=== PATIENT | male | born 1965 | race American Indian/Alaskan Native ===

== ENCOUNTER 2016-07-22 18:54 | Emergency (ER) | payer MEDICARE, MEDICAID, OTHER ==
[2016-07-22 19:00] VITALS: BP 161/87
[2016-07-22 20:09] LABS: CHLORIDE,CL 89 mmol/L (101-111); SODIUM,NA 130 mmol/L (135-145)
[2016-07-22] MEDS ORDERED: Magnesium Citrate Solution 296 ML Bottle PO ONE ×2 (21:23→21:24)
--- NOTE | 2016-07-22 22:53 | EDM.PDOC ---
ED HPI GENERAL MEDICAL PROBLEM - General Chief Complaint: General Stated Complaint: DONT FEEL GOOD Time Seen by Provider: 07/22/16 19:05 Source of Information: Reports: Patient, Family History Limitations: Reports: No limitations - History of Present Illness INITIAL COMMENTS - FREE TEXT/NARRATIVE: c/o being constipated and having rectal pain from being "plugged" Last normal BM on Tuesday. Severity: moderate Associated Symptoms: Denies: loss of appetite, nausea/vomiting - Related Data Allergies Allergy/AdvReac Type Severity Reaction Status Date / Time metformin Allergy Nausea and Verified 07/22/16 19:06 Vomiting Home Meds: Home Meds Aspirin [Aspirin EC] 81 mg PO DAILY 02/15/15 [History] Calcium Carbonate 600 mg PO DAILY 02/15/15 [History] Ferrous Sulfate 325 mg PO DAILY 02/15/15 [History] Furosemide 40 mg PO DAILY 02/15/15 [History] Insulin Detemir [Levemir] 25 units SQ DAILY 02/15/15 [History] Simvastatin [Zocor] 20 mg PO DAILY 02/15/15 [History] Warfarin [Coumadin] 3 mg PO DAILY 02/15/16 [History] Hydrocodone/Acetaminophen [Hydrocodon-Acetaminophen 5-325] 1 tab PO BEDTIME 06/08 [History] Insulin Aspart [NovoLOG] 14 units SQ TID 05/23/16 [History] Docusate Sodium [Colace] 200 mg PO DAILY 06/28/16 [History] Past Medical History HEENT History: Reports: Impaired vision Other HEENT History: wears glasses Cardiovascular History: Reports: Afib, High cholesterol, Hypertension Respiratory History: Reports: Bronchitis, recurrent, Sleep apnea Gastrointestinal History: Reports: Chronic constipation Genitourinary History: Reports: Dialysis, Dialysis, peritoneal, Renal disease Other Genitourinary History: hemodialysis shunt in left upper arm with palpable bruit Musculoskeletal History: Reports: Fracture Neurological History: Reports: None Psychiatric History: Reports: None Endocrine/Metabolic History: Reports: Diabetes, type II, IDDM, Obesity/BMI 30+ Hematologic History: Reports: Anticoagulation therapy Immunologic History: Reports: None Oncologic (Cancer) History: Reports: None Dermatologic History: Reports: None - Past Surgical History HEENT Surgical History: Reports: Oral surgery Other HEENT Surgeries/Procedures: multiple teeth extracted GI Surgical History: Reports: None Male Surgical History: Reports: None Neurological Surgical History: Reports: None Social & Family History - Family History Family Medical History: Noncontributory - Tobacco Use Smoking Status *Q: Never Smoker Second Hand Smoke Exposure: No - Caffeine Use Caffeine Use: Reports: Coffee, Soda - Recreational Drug Use Recreational Drug Use: No - Living Situation & Occupation Living situation: Reports: , with family ED ROS GENERAL - Review of Systems Review Of Systems: See Below Constitutional: Reports: no symptoms HEENT: Reports: No symptoms Respiratory: Reports: no symptoms Cardiovascular: Reports: No symptoms Endocrine: Reports: no symptoms GI/Abdominal: Reports: Abdominal pain, Constipation, Stool incontinence : Reports: no symptoms Skin: Reports: no symptoms Neurological: Reports: no symptoms ED EXAM, GENERAL - Physical Exam Exam: See Below Exam Limited By: No limitations General Appearance: alert, moderate distress Eye Exam: bilateral eye: EOMI Ears: normal external exam Nose: normal inspection Throat/Mouth: Normal inspection Head: atraumatic, normocephalic Neck: normal inspection Respiratory/Chest: no respiratory distress, decreased breath sounds (bilateral bases) Cardiovascular: normal peripheral pulses, regular rate, rhythm GI/Abdominal: distended, other (peritoneal dialysis catheterin place dressing CDI). No: normal bowel sounds (hypoactive, no typmany) Rectal (Males) Exam: Fecal impaction (soft), Heme - stool, Tenderness (rectal pressure). No: Hemorrhoids Extremities: normal inspection Neurological: alert, oriented Psychiatric: normal affect Skin Exam: Warm, Dry, Intact Course - Vital Signs Last Recorded V/S: Last Vital Signs Temp 99.6 F 07/22/16 18:59 Pulse 95 07/22/16 18:59 Resp 18 07/22/16 18:59 BP 161/87 H 07/22/16 18:59 Pulse Ox 100 07/22/16 18:59 - Orders/Labs/Meds Orders: Active Orders 24 hr Category Date Time Status Enema [RC] ASDIRECTED Care 07/22/16 20:44 Active Labs: Laboratory Tests 07/22/16 07/22/16 Range/Units 19:45 19:45 WBC 13.4 H (5.0-10.0) 10^3/uL RBC 3.85 L (4.6-6.2) 10^6/uL Hgb 11.6 L (14.0-18.0) g/dL Hct 35.6 L (40.0-54.0) % MCV 92.5 (80-100) fL MCH 30.1 (27.0-34.0) pg MCHC 32.6 L (33.0-35.0) g/dL Plt Count 227 (150-450) 10^3/uL Neut % (Auto) 78.0 H (42.2-75.2) % Lymph % (Auto) 11.9 L (20.5-50.1) % [place] % (Auto) 8.2 H (2-8) % Eos % (Auto) 1.6 (1.0-3.0) % Baso % (Auto) 0.3 (0.0-1.0) % Sodium 130 L (135-145) mmol/L Potassium 4.3 (3.6-5.0) mmol/L Chloride 89 L (101-111) mmol/L Carbon Dioxide 25.0 (21.0-31.0) mmol/L Anion Gap 20.3 BUN 61 H (7-18) mg/dL Creatinine 12.9 H (0.6-1.3) mg/dL Est Cr Clr Drug Dosing 7.91 mL/min Estimated GFR (MDRD) 4 BUN/Creatinine Ratio 4.72 Glucose 283 H (74-105) mg/dL Calcium 9.5 (8.4-10.2) mg/dl Magnesium 2.7 H (1.8-2.5) mg/dL Total Bilirubin 0.4 (0.2-1.0) mg/dL AST 20 (10-42) IU/L ALT < 5 L (10-60) IU/L Alkaline Phosphatase 93 (42-121) IU/L Total Protein 7.4 (6.7-8.2) g/dl Albumin 3.3 (3.2-5.5) g/dl Globulin 4.1 Albumin/Globulin Ratio 0.80 Meds: Medications Discontinued Medications Generic Name Dose Route Start Last Admin Trade Name Freq PRN Reason Stop Dose Admin Magnesium Citrate 280 ml 07/22/16 21:23 07/22/16 22:18 Citrate Of Magnesia PO 07/22/16 21:24 296 ml ONETIME ONE Administration Magnesium Citrate 250 ml 07/22/16 21:24 Citrate Of Magnesia PO 07/22/16 21:25 ONETIME ONE - Radiology Interpretation Free Text/Narrative:: CT abdomen no obstruction, moderate stool in rectal vault. - Re-Assessments/Exams Free Text/Narrative Re-Assessment/Exam: difficulty retaining enema fluid, Manual removal small amount of stool, Soft BM with decrease in rectal pain and pressure. Departure - Departure Time of Disposition: 22:51 Disposition: Home, Self-Care 01 Condition: good Clinical Impression: Fecal impaction in rectum Constipation Qualifiers: Constipation type: slow transit constipation Qualified Code(s): K59.01 - Slow transit constipation Instructions: Constipation, Adult Forms: ED Department Discharge Additional Instructions: clinic follow up tomorrow. continue bowel program - My Orders Last 24 Hours: My Active Orders 07/22/16 20:44 Enema [RC] ASDIRECTED - Assessment/Plan Last 24 Hours: My Active Orders 07/22/16 20:44 Enema [RC] ASDIRECTED
== END 2016-07-22 23:29 | disposition home or self-care (01) ==
LOC: DL.ED 18:54
DX: K56.41 Fecal impaction (principal); K59.01 Slow transit constipation; I48.91 Unspecified atrial fibrillation; E78.00 Pure hypercholesterolemia, unspecified; I10 Essential (primary) hypertension; E11.9 Type 2 diabetes mellitus without complications; E66.9 Obesity, unspecified; Z98.890 Other specified postprocedural states; Z79.4 Long term (current) use of insulin; Z79.899 Other long term (current) drug therapy; Z79.82 Long term (current) use of aspirin; Z88.8 Allergy status to other drugs, medicaments and biological substances; Z79.01 Long term (current) use of anticoagulants
CPT/HCPCS: 36415; 74176; 80053; 82272; 83735; 85025; 99284; A9270; 99282

== ENCOUNTER 2017-02-03 18:00 | Emergency (ER) | payer MEDICARE, MEDICAID ==
[2017-02-03 19:41] VITALS: BP 114/72
--- NOTE | 2017-02-03 21:41 | EDM.PDOC ---
ED HPI GENERAL MEDICAL PROBLEM - General Chief Complaint: ENT Problem Stated Complaint: CONGESTED IN CHEST, HARD TO BREATH, [id number] Time Seen by Provider: 02/03/17 20:05 Source of Information: Reports: Patient History Limitations: Reports: No Limitations - History of Present Illness INITIAL COMMENTS - FREE TEXT/NARRATIVE: C/O product cough clear phlegm today, hx similar in past No fever. States he told dialysis staff today and was told to try corriscidin and if not better to go to ED. Main dialysis in [place], [place]. Has not tried OTC and here for eval Generalized Pain Score (Numeric/FACES): 6 - Related Data Allergies Allergy/AdvReac Type Severity Reaction Status Date / Time metformin Allergy Nausea and Verified 02/03/17 19:41 Vomiting Home Meds: Home Meds Aspirin [Aspirin EC] 81 mg PO DAILY 02/15/15 [History] Calcium Carbonate 600 mg PO DAILY 02/15/15 [History] Furosemide 40 mg PO DAILY 02/15/15 [History] Insulin Detemir [Levemir] 25 units SQ DAILY 02/15/15 [History] Simvastatin [Zocor] 20 mg PO DAILY 02/15/15 [History] Warfarin [Coumadin] 3 mg PO DAILY 02/15/16 [History] Hydrocodone/Acetaminophen [Hydrocodon-Acetaminophen 5-325] 1 tab PO BEDTIME 06/08 [History] Insulin Aspart [NovoLOG] 14 units SQ TID 05/23/16 [History] Docusate Sodium [Colace] 200 mg PO DAILY 06/28/16 [History] Past Medical History HEENT History: Reports: Impaired Vision Other HEENT History: wears glasses Cardiovascular History: Reports: Afib, High Cholesterol, Hypertension Respiratory History: Reports: Bronchitis, Recurrent, Sleep Apnea Gastrointestinal History: Reports: Chronic Constipation Genitourinary History: Reports: Dialysis, Renal Disease Other Genitourinary History: hemodialysis shunt in left upper arm with palpable bruit Musculoskeletal History: Reports: Fracture Neurological History: Reports: None Psychiatric History: Reports: None Endocrine/Metabolic History: Reports: Diabetes, Type II, IDDM, Obesity/BMI 30+ Hematologic History: Reports: Anticoagulation Therapy Immunologic History: Reports: None Oncologic (Cancer) History: Reports: None Dermatologic History: Reports: None - Past Surgical History HEENT Surgical History: Reports: Oral Surgery Neurological Surgical History: Reports: None Social & Family History - Family History Family Medical History: Noncontributory - Tobacco Use Smoking Status *Q: Never Smoker Second Hand Smoke Exposure: No - Caffeine Use Caffeine Use: Reports: Coffee, Soda - Recreational Drug Use Recreational Drug Use: No - Living Situation & Occupation Living situation: Reports: , with Family ED ROS ENT - Review of Systems Review Of Systems: ROS reveals no pertinent complaints other than HPI. ED EXAM, ENT - Physical Exam Exam: See Below Exam Limited By: No Limitations General Appearance: Alert, Mild Distress (nasal congestion) Ears: Normal TMs Nose: Normal Inspection Mouth/Throat: Normal Inspection Head: Atraumatic, Normocephalic Neck: Normal Inspection, Full Range of Motion Respiratory/Chest: No Respiratory Distress, Decreased Breath Sounds. No: Crackles, Rales, Rhonchi, Wheezing Cardiovascular: Normal Peripheral Pulses, Regular Rate, Rhythm GI/Abdominal: Soft Extremities: Normal Inspection. No: Pedal Edema Neurological: Alert, Oriented Skin: Warm, Dry, Intact, Normal Color Course - Vital Signs Last Recorded V/S: Last Vital Signs Temp 97.7 F 02/03/17 19:38 Pulse 84 02/03/17 19:38 Resp 18 02/03/17 19:38 BP 114/72 02/03/17 19:38 Pulse Ox 98 02/03/17 19:38 - Orders/Labs/Meds Orders: Active Orders 24 hr Category Date Time Status CULTURE BLOOD [BC] Stat Lab 02/03/17 20:18 Received CULTURE BLOOD [BC] Stat Lab 02/03/17 20:25 Results Blood Culture x2 Reflex Set [OM.PC] Stat Oth 02/03/17 20:04 Ordered Labs: Laboratory Tests 02/03/17 02/03/17 02/03/17 Range/Units 20:18 20:18 20:18 WBC 6.6 (5.0-10.0) 10^3/uL RBC 4.19 L (4.6-6.2) 10^6/uL Hgb 11.9 L (14.0-18.0) g/dL Hct 37.8 L (40.0-54.0) % MCV 90.2 (80-100) fL MCH 28.4 (27.0-34.0) pg MCHC 31.5 L (33.0-35.0) g/dL Plt Count 192 (150-450) 10^3/uL Neut % (Auto) 60.6 (42.2-75.2) % Lymph % (Auto) 20.5 (20.5-50.1) % [place] % (Auto) 9.0 H (2-8) % Eos % (Auto) 9.3 H (1.0-3.0) % Baso % (Auto) 0.6 (0.0-1.0) % Sodium 138 (135-145) mmol/L Potassium 3.6 (3.6-5.0) mmol/L Chloride 92 L (101-111) mmol/L Carbon Dioxide 33.0 H (21.0-31.0) mmol/L Anion Gap 16.6 BUN 11 (7-18) mg/dL Creatinine 6.4 H (0.6-1.3) mg/dL Est Cr Clr Drug Dosing 15.78 mL/min Estimated GFR (MDRD) 9 BUN/Creatinine Ratio 1.71 Glucose 142 H (74-105) mg/dL Lactic Acid 1.7 (0.5-2.2) mmol/L Calcium 9.2 (8.4-10.2) mg/dl Total Bilirubin 0.5 (0.2-1.0) mg/dL AST 25 (10-42) IU/L ALT 21 (10-60) IU/L Alkaline Phosphatase 80 (42-121) IU/L Troponin I 0.03 H* (0.00-0.02) ng/ml B-Natriuretic Peptide 401 H (0-100) pg/ml Total Protein 8.4 H (6.7-8.2) g/dl Albumin 4.1 (3.2-5.5) g/dl Globulin 4.3 Albumin/Globulin Ratio 0.95 Departure - Departure Time of Disposition: 21:38 Disposition: Home, Self-Care 01 Condition: Good Clinical Impression: URI (upper respiratory infection) Qualifiers: URI type: unspecified URI Qualified Code(s): J06.9 - Acute upper respiratory infection, unspecified - Discharge Information Instructions: Upper Respiratory Infection, Adult Referrals: Arnoldo Sanders MD [Primary Care Provider] - Forms: ED Department Discharge Additional Instructions: rest corricidin HBP per package instructions follow up if symptoms worsen, increase difficulty breathing, or weakness - My Orders Last 24 Hours: My Active Orders 02/03/17 20:04 Blood Culture x2 Reflex Set [OM.PC] Stat 02/03/17 20:18 CULTURE BLOOD [BC] Stat 02/03/17 20:25 CULTURE BLOOD [BC] Stat - Assessment/Plan Last 24 Hours: My Active Orders 02/03/17 20:04 Blood Culture x2 Reflex Set [OM.PC] Stat 02/03/17 20:18 CULTURE BLOOD [BC] Stat 02/03/17 20:25 CULTURE BLOOD [BC] Stat
== END 2017-02-03 21:49 | disposition home or self-care (01) ==
LOC: DL.ED 18:00
DX: J06.9 Acute upper respiratory infection, unspecified (principal); H54.7 Unspecified visual loss; E78.00 Pure hypercholesterolemia, unspecified; E11.9 Type 2 diabetes mellitus without complications; E66.9 Obesity, unspecified; I10 Essential (primary) hypertension; Z98.890 Other specified postprocedural states; Z88.8 Allergy status to other drugs, medicaments and biological substances; Z79.82 Long term (current) use of aspirin; Z79.899 Other long term (current) drug therapy; Z79.4 Long term (current) use of insulin; Z79.01 Long term (current) use of anticoagulants
CPT/HCPCS: 36415; 71020; 80053; 83605; 83880; 84484; 85025; 87040; 99283

== ENCOUNTER 2017-07-23 21:38 | Emergency (ER) | payer MEDICARE, MEDICAID, OTHER ==
[2017-07-23 22:18] VITALS: BP 167/72
--- NOTE | 2017-07-23 22:35 | EDM.PDOC ---
ED HPI GENERAL MEDICAL PROBLEM - General Chief Complaint: Upper Extremity Injury/Pain Stated Complaint: RT ARM,FELL ON SIDEWALK [id number] Time Seen by Provider: 07/23/17 21:50 Source of Information: Reports: Patient History Limitations: Reports: No Limitations - History of Present Illness INITIAL COMMENTS - FREE TEXT/NARRATIVE: This 51 yo male patient reports to the ED due to a fall. The patient reports about 1 hour ago he fell while in [place]. The patient reports he fell on his left knee and then to his right arm. The patient reports that he did not want to go to the ED while in [place], so came here. The patient also reports that he fell earlier today and sprained his left wrist. The patient also reports that he now has pain in his chest. Onset: Today Onset Date: 07/23/17 Onset Time: 21:00 Duration: Constant Location: Reports: Chest, Upper Extremity, Right, Lower Extremity, Left Quality: Reports: Ache, Dull Severity: Moderate Improves with: Reports: Rest Worsens with: Reports: Movement Associated Symptoms: Reports: Chest Pain Right Arm Pain Score (Numeric/FACES): 5 - Related Data Allergies Allergy/AdvReac Type Severity Reaction Status Date / Time metformin Allergy Nausea and Verified 07/23/17 22:19 Vomiting Home Meds: Home Meds Aspirin [Aspirin EC] 81 mg PO DAILY 02/15/15 [History] Calcium Carbonate 600 mg PO DAILY 02/15/15 [History] Furosemide 40 mg PO DAILY 02/15/15 [History] Insulin Detemir [Levemir] 25 units SQ DAILY 02/15/15 [History] Simvastatin [Zocor] 20 mg PO DAILY 02/15/15 [History] Warfarin [Coumadin] 3 mg PO DAILY 02/15/16 [History] Hydrocodone/Acetaminophen [Hydrocodon-Acetaminophen 5-325] 1 tab PO BEDTIME 06/08 [History] Insulin Aspart [NovoLOG] 14 units SQ TID 05/23/16 [History] Docusate Sodium [Colace] 200 mg PO DAILY 06/28/16 [History] Past Medical History HEENT History: Reports: Impaired Vision Other HEENT History: wears glasses Cardiovascular History: Reports: Afib, High Cholesterol, Hypertension Respiratory History: Reports: Bronchitis, Recurrent, Sleep Apnea Gastrointestinal History: Reports: Chronic Constipation Genitourinary History: Reports: Dialysis, Renal Disease Other Genitourinary History: hemodialysis shunt in left upper arm with palpable bruit Musculoskeletal History: Reports: Fracture Neurological History: Reports: None Psychiatric History: Reports: None Endocrine/Metabolic History: Reports: Diabetes, Type II, IDDM, Obesity/BMI 30+ Hematologic History: Reports: Anticoagulation Therapy Immunologic History: Reports: None Oncologic (Cancer) History: Reports: None Dermatologic History: Reports: None - Past Surgical History HEENT Surgical History: Reports: Oral Surgery Neurological Surgical History: Reports: None Social & Family History - Family History Family Medical History: Noncontributory - Tobacco Use Smoking Status *Q: Never Smoker Second Hand Smoke Exposure: No - Caffeine Use Caffeine Use: Reports: Coffee - Recreational Drug Use Recreational Drug Use: No - Living Situation & Occupation Living situation: Reports: , with Family Review of Systems - Review of Systems Review Of Systems: ROS reveals no pertinent complaints other than HPI. ED EXAM, GENERAL - Physical Exam Exam: See Below Exam Limited By: No Limitations General Appearance: Alert, WD/WN, Moderate Distress, Obese Eye Exam: Bilateral Eye: EOMI, Normal Fundi, PERRL Ears: Normal External Exam, Normal Canal, Hearing Grossly Normal, Normal TMs Nose: Normal Inspection, Normal Mucosa, No Blood Throat/Mouth: Normal Inspection, Normal Lips, Normal Teeth, Normal Gums, Normal Oropharynx, Normal Voice, No Airway Compromise Head: Atraumatic, Normocephalic Neck: Normal Inspection, Supple, Non-Tender, Full Range of Motion Respiratory/Chest: No Respiratory Distress, Lungs Clear, Normal Breath Sounds, No Accessory Muscle Use, Other (Tenderness to the right middle chest) Cardiovascular: Normal Peripheral Pulses, Regular Rate, Rhythm, No Edema, No Gallop, No JVD, No Murmur, No Rub GI/Abdominal: Normal Bowel Sounds, Soft, Non-Tender, No Organomegaly, No Distention, No Abnormal Bruit, No Mass (Male) Exam: Deferred Rectal (Males) Exam: Deferred Back Exam: Normal Inspection, Full Range of Motion, NT Extremities: No Pedal Edema, Normal Capillary Refill, Arm Pain (right elbow) Neurological: Alert, Oriented, CN II-XII Intact, Normal Cognition, Normal Gait, Normal Reflexes, No Motor/Sensory Deficits Psychiatric: Normal Affect, Normal Mood Skin Exam: Warm, Dry, Intact, Normal Color, No Rash Lymphatic: No Adenopathy ED TRAUMA EXTREMITY PROCEDURES - Splinting Right Upper Extremity Splint Site: right elbow Pre-Procedure NV Status: Normal Post-Procedure NV Status: Normal Splint Material: Fiberglass Splint Design: Volar Provider Post-Splint Application NV Check: NV Status Normal, Good Position Complications: No Course - Vital Signs Last Recorded V/S: Last Vital Signs Temp 36.9 C 07/23/17 21:48 Pulse 86 07/23/17 21:48 Resp 18 07/23/17 21:48 BP 167/72 H 07/23/17 21:48 Pulse Ox 99 07/23/17 21:48 - Orders/Labs/Meds Orders: Active Orders 24 hr Category Date Time Status EKG Documentation Completion [RC] URGENT Care 07/23/17 21:52 Ordered Chest 1V Frontal [CR] Urgent Exams 07/23/17 21:52 Ordered Forearm 2V Rt [CR] Urgent Exams 07/23/17 21:52 Ordered Knee 1V or 2V Lt [CR] Urgent Exams 07/23/17 21:52 Ordered Wrist 2V Rt [CR] Urgent Exams 07/23/17 21:52 Ordered COMPREHENSIVE METABOLIC PN,CMP [CHEM] Urgent Lab 07/23/17 21:52 Ordered TROPONIN I [CHEM] Urgent Lab 07/23/17 21:52 Ordered Labs: Laboratory Tests 07/23/17 Range/Units 22:00 WBC 7.5 (5.0-10.0) 10^3/uL RBC 3.06 L (4.6-6.2) 10^6/uL Hgb 8.9 L D (14.0-18.0) g/dL Hct 28.3 L (40.0-54.0) % MCV 92.5 (80-100) fL MCH 29.1 (27.0-34.0) pg MCHC 31.4 L (33.0-35.0) g/dL Plt Count 199 (150-450) 10^3/uL Neut % (Auto) 60.9 (42.2-75.2) % Lymph % (Auto) 24.5 (20.5-50.1) % [place] % (Auto) 9.8 H (2-8) % Eos % (Auto) 4.0 H (1.0-3.0) % Baso % (Auto) 0.8 (0.0-1.0) % Departure - Departure Time of Disposition: 00:03 Disposition: Home, Self-Care 01 Condition: Fair Clinical Impression: Fracture of radial head, right, closed Qualifiers: Encounter type: initial encounter Fracture alignment: nondisplaced Qualified Code(s): S52.124A - Nondisplaced fracture of head of right radius, initial encounter for closed fracture - Discharge Information Instructions: Radial Head Fracture, [id number] Care Plan Goals: The patient was advised of the examination, lab, x-ray and EKG results during the visit. The patient was placed in a fiberglass splint for his right elbow and a sling during the visit in the ED. The patient was encouraged to follow-up with orthopedics next week for continued evaluation and further management. The patient was given a dose of [place] while in the ED. If the patient has any additional symptoms or concerns, the patient should follow-up with his primary care facility or return to the emergency department. - My Orders Last 24 Hours: My Active Orders 07/23/17 21:52 EKG Documentation Completion [RC] URGENT Chest 1V Frontal [CR] Urgent Forearm 2V Rt [CR] Urgent Knee 1V or 2V Lt [CR] Urgent Wrist 2V Rt [CR] Urgent COMPREHENSIVE METABOLIC PN,CMP [CHEM] Urgent TROPONIN I [CHEM] Urgent - Assessment/Plan Last 24 Hours: My Active Orders 07/23/17 21:52 EKG Documentation Completion [RC] URGENT Chest 1V Frontal [CR] Urgent Forearm 2V Rt [CR] Urgent Knee 1V or 2V Lt [CR] Urgent Wrist 2V Rt [CR] Urgent COMPREHENSIVE METABOLIC PN,CMP [CHEM] Urgent TROPONIN I [CHEM] Urgent
[2017-07-23] MEDS ORDERED: Acetaminophen/HYDROcodone 325-10 MG Tab PO ONE (23:25)
--- NOTE | 2017-07-26 12:48 | EKG ---
07/23/2017- RUMA VASQUEZ - EKG shows a heart rate of 78 beats per minute. Normal sinus rhythm. A right bundle-branch block, and borderline left axis deviation. [facility] /[id number]
== END 2017-07-24 00:15 | disposition home or self-care (01) ==
LOC: DL.ED 21:38
DX: S52.124A Nondisplaced fracture of head of right radius, initial encounter for closed fracture (principal); I10 Essential (primary) hypertension; E78.00 Pure hypercholesterolemia, unspecified; E11.9 Type 2 diabetes mellitus without complications; E66.9 Obesity, unspecified; Z88.8 Allergy status to other drugs, medicaments and biological substances; Z79.82 Long term (current) use of aspirin; Z79.899 Other long term (current) drug therapy; Z79.4 Long term (current) use of insulin; W19.XXXA Unspecified fall, initial encounter
CPT/HCPCS: 29105; 36415; 71045; 73090; 73100; 73560; 80053; 84484; 85025; 93005; 93010; 99283; 99284; A9270

== ENCOUNTER 2017-07-31 17:30 | Emergency (ER) | payer MEDICARE, MEDICAID, OTHER ==
[2017-07-31] MEDS ORDERED: Benzonatate 100 MG Cap PO ONE (17:31)
--- NOTE | 2017-07-31 19:31 | EDM.PDOC ---
ED HPI GENERAL MEDICAL PROBLEM - General Chief Complaint: Respiratory Problem Stated Complaint: cold [id number] Time Seen by Provider: 07/31/17 19:28 Source of Information: Reports: Patient History Limitations: Reports: No Limitations - History of Present Illness INITIAL COMMENTS - FREE TEXT/NARRATIVE: ED with c/o cough and sore throat. 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 Chest Pain Score (Numeric/FACES): 7 - Related Data Allergies Allergy/AdvReac Type Severity Reaction Status Date / Time metformin Allergy Nausea and Verified 07/23/17 22:19 Vomiting Home Meds: Home Meds Aspirin [Aspirin EC] 81 mg PO DAILY 02/15/15 [History] Calcium Carbonate 600 mg PO DAILY 02/15/15 [History] Furosemide 40 mg PO DAILY 02/15/15 [History] Insulin Detemir [Levemir] 25 units SQ DAILY 02/15/15 [History] Simvastatin [Zocor] 20 mg PO DAILY 02/15/15 [History] Warfarin [Coumadin] 3 mg PO DAILY 02/15/16 [History] Hydrocodone/Acetaminophen [Hydrocodon-Acetaminophen 5-325] 1 tab PO BEDTIME 06/08 [History] Insulin Aspart [NovoLOG] 14 units SQ TID 05/23/16 [History] Docusate Sodium [Colace] 200 mg PO DAILY 06/28/16 [History] Past Medical History HEENT History: Reports: Impaired Vision Other HEENT History: wears glasses Cardiovascular History: Reports: Afib, High Cholesterol, Hypertension Respiratory History: Reports: Bronchitis, Recurrent, Sleep Apnea Gastrointestinal History: Reports: Chronic Constipation Genitourinary History: Reports: Dialysis, Renal Disease Other Genitourinary History: hemodialysis shunt in left upper arm with palpable bruit Musculoskeletal History: Reports: Fracture Neurological History: Reports: None Psychiatric History: Reports: None Endocrine/Metabolic History: Reports: Diabetes, Type II, IDDM, Obesity/BMI 30+ Hematologic History: Reports: Anticoagulation Therapy Immunologic History: Reports: None Oncologic (Cancer) History: Reports: None Dermatologic History: Reports: None - Past Surgical History HEENT Surgical History: Reports: Oral Surgery Neurological Surgical History: Reports: None Social & Family History - Family History Family Medical History: Noncontributory - Tobacco Use Smoking Status *Q: Never Smoker Second Hand Smoke Exposure: No - Caffeine Use Caffeine Use: Reports: Coffee, Soda, Tea - Recreational Drug Use Recreational Drug Use: No - Living Situation & Occupation Living situation: Reports: , with Family ED ROS GENERAL - Review of Systems Review Of Systems: See Below Constitutional: Reports: Night Sweats HEENT: Reports: Glasses, Sinus Problem, Throat Pain. Denies: Ear Pain Respiratory: Reports: Cough, Hemoptysis. Denies: Shortness of Breath, Wheezing Endocrine: Reports: No Symptoms GI/Abdominal: Reports: No Symptoms Musculoskeletal: Reports: Arm Pain (rught arm from recent injury) Skin: Reports: No Symptoms Neurological: Reports: No Symptoms ED EXAM, GENERAL - Physical Exam Exam: See Below Exam Limited By: No Limitations General Appearance: Alert, No Apparent Distress Eye Exam: Bilateral Eye: EOMI Ears: Normal External Exam, Normal TMs Nose: Normal Inspection. No: Nasal Drainage Throat/Mouth: Inflammation (minimal grater left ) Head: Atraumatic, Normocephalic Neck: Normal Inspection Respiratory/Chest: No Respiratory Distress, Lungs Clear, Normal Breath Sounds Cardiovascular: Normal Peripheral Pulses, Regular Rate, Rhythm Back Exam: Full Range of Motion Extremities: Normal Inspection, Normal Range of Motion Neurological: Alert, Oriented, Normal Cognition, Normal Reflexes, No Motor/ Sensory Deficits. No: Disoriented, Slow to Respond, Unresponsive, Memory Loss Remote Events Psychiatric: Normal Affect, Normal Mood Skin Exam: Warm, Dry, Intact, Normal Color Course - Vital Signs Last Recorded V/S: Last Vital Signs Temp 100.4 F 07/31/17 21:32 Pulse 100 07/31/17 21:34 Resp 18 07/31/17 21:32 BP 113/74 07/31/17 21:32 Pulse Ox 98 07/31/17 21:32 - Orders/Labs/Meds Orders: Active Orders 24 hr Category Date Time Status RT Aerosol Therapy [RC] ASDIRECTED Care 07/31/17 21:25 Active CULTURE STREP A CONFIRMATION [] Stat Lab 07/31/17 20:20 Results STREP SCRN A RAPID W CULT CONF [] Stat Lab 07/31/17 20:20 Results Labs: Laboratory Tests 07/31/17 07/31/17 07/31/17 Range/Units 19:42 19:42 19:42 WBC 6.1 (5.0-10.0) 10^3/uL RBC 2.98 L (4.6-6.2) 10^6/uL Hgb 8.4 L (14.0-18.0) g/dL Hct 27.2 L (40.0-54.0) % MCV 91.3 (80-100) fL MCH 28.2 (27.0-34.0) pg MCHC 30.9 L (33.0-35.0) g/dL Plt Count 209 (150-450) 10^3/uL Neut % (Auto) 56.6 (42.2-75.2) % Lymph % (Auto) 26.0 (20.5-50.1) % [place] % (Auto) 10.5 H (2-8) % Eos % (Auto) 6.2 H (1.0-3.0) % Baso % (Auto) 0.7 (0.0-1.0) % Sodium 137 (135-145) mmol/L Potassium 4.2 (3.6-5.0) mmol/L Chloride 94 L (101-111) mmol/L Carbon Dioxide 33.0 H (21.0-31.0) mmol/L Anion Gap 14.2 BUN 18 (7-18) mg/dL Creatinine 7.3 H D (0.6-1.3) mg/dL Est Cr Clr Drug Dosing 14.23 mL/min Estimated GFR (MDRD) 8 BUN/Creatinine Ratio 2.46 Glucose 104 (74-105) mg/dL Lactic Acid 1.1 (0.5-2.2) mmol/L Calcium 9.6 (8.4-10.2) mg/dl Total Bilirubin 0.8 (0.2-1.0) mg/dL AST 18 (10-42) IU/L ALT 13 (10-60) IU/L Alkaline Phosphatase 66 (42-121) IU/L Total Protein 7.7 (6.7-8.2) g/dl Albumin 3.9 (3.2-5.5) g/dl Globulin 3.8 Albumin/Globulin Ratio 1.03 Meds: Medications Discontinued Medications Generic Name Dose Route Start Last Admin Trade Name Freq PRN Reason Stop Dose Admin Acetaminophen 650 mg 07/31/17 21:37 07/31/17 21:40 Tylenol PO 07/31/17 21:38 650 mg NOW ONE Administration Albuterol/Ipratropium 3 ml 07/31/17 21:25 07/31/17 21:29 Duoneb 3.0-0.5 Mg/3 Ml NEB 07/31/17 21:26 3 ml ONETIME ONE Administration Benzonatate Confirm 07/31/17 21:36 07/31/17 21:43 Tessalon Perles Administered 07/31/17 21:37 Not Given Dose 200 mg .ROUTE .STK-MED ONE Levofloxacin Confirm 07/31/17 21:37 07/31/17 21:42 Levaquin Administered 07/31/17 21:38 500 mg Dose Administration 500 mg .ROUTE .STK-MED ONE - Radiology Interpretation Free Text/Narrative:: CXR: right pleural effusion with basilar airspace disease representing pneumonia / atelectasis unchanged since previous exam 07/23/2017 base atelectasis/ Departure - Departure Time of Disposition: 21:35 Disposition: Home, Self-Care 01 Condition: Fair Clinical Impression: URI (upper respiratory infection) Qualifiers: URI type: unspecified URI Qualified Code(s): J06.9 - Acute upper respiratory infection, unspecified - Discharge Information Instructions: Upper Respiratory Infection, Adult, [id number] Forms: ED Department Discharge Additional Instructions: Humidification tylenol 650mg every 4 hours as needed for fever levaquin 250mg every other day tessalon 100mg one every 8 hours as needed for cough clinic follow up 2-3 days, sooner if symptoms worsen - My Orders Last 24 Hours: My Active Orders 07/31/17 20:20 CULTURE STREP A CONFIRMATION [RM] Stat STREP SCRN A RAPID W CULT CONF [RM] Stat 07/31/17 21:25 RT Aerosol Therapy [RC] ASDIRECTED - Assessment/Plan Last 24 Hours: My Active Orders 07/31/17 20:20 CULTURE STREP A CONFIRMATION [RM] Stat STREP SCRN A RAPID W CULT CONF [RM] Stat 07/31/17 21:25 RT Aerosol Therapy [RC] ASDIRECTED
[2017-07-31] MEDS ORDERED: Albuterol/Ipratropium 3.0-0.5 MG/3 ML Neb Soln NEB ONE (21:25)
[2017-07-31 21:33] VITALS: BP 113/74
[2017-07-31] MEDS ORDERED: Benzonatate 100 MG Cap ONE (21:36)
[2017-07-31] MEDS ORDERED: Levofloxacin 500 MG Tab ONE (21:37)
[2017-07-31] MEDS ORDERED: Acetaminophen 325 MG Tab PO ONE (21:37)
== END 2017-07-31 21:50 | disposition home or self-care (01) ==
LOC: DL.ED 17:30
DX: J06.9 Acute upper respiratory infection, unspecified (principal); I48.91 Unspecified atrial fibrillation; E78.00 Pure hypercholesterolemia, unspecified; E11.9 Type 2 diabetes mellitus without complications; E66.9 Obesity, unspecified; Z88.8 Allergy status to other drugs, medicaments and biological substances; Z79.4 Long term (current) use of insulin; Z68.32 Body mass index [BMI] 32.0-32.9, adult
CPT/HCPCS: 36415; 71046; 80053; 83605; 85025; 87081; 87430; 87804; 94640; 99284; A9270; 99283

== ENCOUNTER 2017-10-08 19:39 | Emergency (ER) | payer MEDICARE, MEDICAID, OTHER ==
--- NOTE | 2017-10-08 22:44 | EDM.PDOC ---
ED HPI GENERAL MEDICAL PROBLEM - General Chief Complaint: General Stated Complaint: DIALIZES PATIENT [id number] Time Seen by Provider: 10/08/17 22:42 Source of Information: Reports: Patient History Limitations: Reports: No Limitations - History of Present Illness INITIAL COMMENTS - FREE TEXT/NARRATIVE: states was told to come for blood transfusion. get dialysis [facility] Tue. had dialysis today and was told needs transfusion. had phone off and didn't get the call on . Back Pain Score (Numeric/FACES): 7 - Related Data Allergies Allergy/AdvReac Type Severity Reaction Status Date / Time metformin Allergy Nausea and Verified 10/08/17 20:23 Vomiting Home Meds: Home Meds Aspirin [Aspirin EC] 81 mg PO DAILY 02/15/15 [History] Calcium Carbonate 600 mg PO DAILY 02/15/15 [History] Furosemide 40 mg PO DAILY 02/15/15 [History] Insulin Detemir [Levemir] 25 units SQ DAILY 02/15/15 [History] Simvastatin [Zocor] 20 mg PO DAILY 02/15/15 [History] Warfarin [Coumadin] 3 mg PO DAILY 02/15/16 [History] Hydrocodone/Acetaminophen [Hydrocodon-Acetaminophen 5-325] 1 tab PO BEDTIME 06/08 [History] Insulin Aspart [NovoLOG] 14 units SQ TID 05/23/16 [History] Docusate Sodium [Colace] 200 mg PO DAILY 06/28/16 [History] Past Medical History HEENT History: Reports: Impaired Vision Other HEENT History: wears glasses Cardiovascular History: Reports: Afib, High Cholesterol, Hypertension Respiratory History: Reports: Bronchitis, Recurrent, Sleep Apnea Gastrointestinal History: Reports: Chronic Constipation Genitourinary History: Reports: Dialysis, Renal Disease Other Genitourinary History: hemodialysis shunt in left upper arm with palpable bruit Musculoskeletal History: Reports: Fracture Neurological History: Reports: None Psychiatric History: Reports: None Endocrine/Metabolic History: Reports: Diabetes, Type II, IDDM, Obesity/BMI 30+ Hematologic History: Reports: Anticoagulation Therapy Immunologic History: Reports: None Oncologic (Cancer) History: Reports: None Dermatologic History: Reports: None - Past Surgical History HEENT Surgical History: Reports: Oral Surgery Neurological Surgical History: Reports: None Social & Family History - Family History Family Medical History: Noncontributory - Tobacco Use Smoking Status *Q: Never Smoker Second Hand Smoke Exposure: No - Caffeine Use Caffeine Use: Reports: Coffee, Soda, Tea - Recreational Drug Use Recreational Drug Use: No - Living Situation & Occupation Living situation: Reports: , with Family ED ROS GENERAL - Review of Systems Review Of Systems: ROS reveals no pertinent complaints other than HPI. ED EXAM, GENERAL - Physical Exam Exam: See Below Exam Limited By: No Limitations General Appearance: Alert, WD/WN, No Apparent Distress Ears: Hearing Grossly Normal Throat/Mouth: Normal Voice, No Airway Compromise Head: Atraumatic Neck: Non-Tender, Full Range of Motion Respiratory/Chest: No Respiratory Distress Cardiovascular: Regular Rate, Rhythm GI/Abdominal: Soft, Non-Tender Neurological: Alert, Oriented, Normal Cognition, No Motor/Sensory Deficits Psychiatric: Flat Affect Skin Exam: Warm, Dry, Normal Color Lymphatic: No Adenopathy Course - Vital Signs Last Recorded V/S: Last Vital Signs Temp 37.4 C 10/09/17 05:04 Pulse 95 10/09/17 05:04 Resp 20 10/09/17 05:04 BP 153/76 H 10/09/17 05:04 Pulse Ox 99 10/09/17 05:04 - Orders/Labs/Meds Orders: Active Orders 24 hr Category Date Time Status Transfuse RBC [Transfuse Red Blood Cells] [COMM] Stat Oth 10/08/17 23:00 Ordered Labs: Laboratory Tests 10/08/17 10/08/17 10/08/17 Range/Units 22:20 22:20 23:05 WBC 7.5 (5.0-10.0) 10^3/uL RBC 2.59 L (4.6-6.2) 10^6/uL Hgb 6.4 L* D (14.0-18.0) g/dL Hct 22.8 L (40.0-54.0) % MCV 88.0 D (80-100) fL MCH 24.7 L (27.0-34.0) pg MCHC 28.1 L (33.0-35.0) g/dL Plt Count 432 D (150-450) 10^3/uL Neut % (Auto) 65.7 (42.2-75.2) % Lymph % (Auto) 19.4 L (20.5-50.1) % [place] % (Auto) 11.3 H (2-8) % Eos % (Auto) 2.8 (1.0-3.0) % Baso % (Auto) 0.8 (0.0-1.0) % Sodium 137 (135-145) mmol/L Potassium 3.2 L (3.6-5.0) mmol/L Chloride 93 L (101-111) mmol/L Carbon Dioxide 34.0 H (21.0-31.0) mmol/L Anion Gap 13.2 BUN 13 (7-18) mg/dL Creatinine 5.0 H D (0.6-1.3) mg/dL Est Cr Clr Drug Dosing 20.78 mL/min Estimated GFR (MDRD) 12 BUN/Creatinine Ratio 2.60 Glucose 203 H (74-105) mg/dL Calcium 8.7 (8.4-10.2) mg/dl Total Bilirubin 0.3 (0.2-1.0) mg/dL AST 29 (10-42) IU/L ALT 12 (10-60) IU/L Alkaline Phosphatase 64 (42-121) IU/L Total Protein 6.6 L (6.7-8.2) g/dl Albumin 2.6 L (3.2-5.5) g/dl Globulin 4.0 Albumin/Globulin Ratio 0.65 Blood Type O POSITIVE Gel Antibody Screen Negative Crossmatch See Detail - Re-Assessments/Exams Free Text/Narrative Re-Assessment/Exam: 10/09/17 05:16 s/p 2 units rbc feeling much better wants to go home Departure - Departure Time of Disposition: 05:16 Disposition: Home, Self-Care 01 Condition: Fair Clinical Impression: Low hemoglobin, Acute renal failure on dialysis - Discharge Information Forms: ED Department Discharge Additional Instructions: 1) rest 2) follow up in clinic 3) recheck as needed - My Orders Last 24 Hours: My Active Orders 10/08/17 23:00 Transfuse RBC [Transfuse Red Blood Cells] [COMM] Stat - Assessment/Plan Last 24 Hours: My Active Orders 10/08/17 23:00 Transfuse RBC [Transfuse Red Blood Cells] [COMM] Stat
[2017-10-09 05:06] VITALS: BP 153/76
== END 2017-10-09 05:27 | disposition home or self-care (01) ==
LOC: DL.ED 19:39
DX: N17.9 Acute kidney failure, unspecified (principal); D64.9 Anemia, unspecified; I48.91 Unspecified atrial fibrillation; E78.00 Pure hypercholesterolemia, unspecified; I10 Essential (primary) hypertension; Z99.2 Dependence on renal dialysis; Z88.8 Allergy status to other drugs, medicaments and biological substances; Z79.82 Long term (current) use of aspirin; Z79.899 Other long term (current) drug therapy; Z79.4 Long term (current) use of insulin; Z79.01 Long term (current) use of anticoagulants
CPT/HCPCS: 36415; 36430; 80053; 85025; 86850; 86900; 86901; 86920; 86922; 99283; 99284; P9016

== ENCOUNTER 2017-10-28 17:33 | Emergency (ER) | payer MEDICARE ==
--- NOTE | 2017-10-28 17:33 | EDM.PDOC ---
<Steve Claros - Last Filed: 10/28/17 19:06> ED HPI GENERAL MEDICAL PROBLEM - General Chief Complaint: General Stated Complaint: HEMO 6.3. 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 Pt states his Hgb was 6.8 and he was told to come and get a blood transfusion. Pt admits to fatigue. Denies chest pain or shortness of breath. Pt admits to stomach acid. Onset: Unknown/Unsure Duration: Constant, Recurring Location: Reports: Generalized Severity: Severe Associated Symptoms: Reports: No Other Symptoms - Related Data Allergies Allergy/AdvReac Type Severity Reaction Status Date / Time metformin Allergy Nausea and Verified 10/28/17 17:46 Vomiting Home Meds: Home Meds Aspirin [Aspirin EC] 81 mg PO DAILY 02/15/15 [History] Calcium Carbonate 600 mg PO DAILY 02/15/15 [History] Furosemide 40 mg PO DAILY 02/15/15 [History] Insulin Detemir [Levemir] 25 units SQ DAILY 02/15/15 [History] Simvastatin [Zocor] 20 mg PO DAILY 02/15/15 [History] Warfarin [Coumadin] 3 mg PO DAILY 02/15/16 [History] Hydrocodone/Acetaminophen [Hydrocodon-Acetaminophen 5-325] 1 tab PO BEDTIME 06/08 [History] Insulin Aspart [NovoLOG] 14 units SQ TID 05/23/16 [History] Docusate Sodium [Colace] 200 mg PO DAILY 06/28/16 [History] Past Medical History HEENT History: Reports: Impaired Vision Other HEENT History: wears glasses Cardiovascular History: Reports: Afib, High Cholesterol, Hypertension Respiratory History: Reports: Bronchitis, Recurrent, Sleep Apnea Gastrointestinal History: Reports: Chronic Constipation Genitourinary History: Reports: Dialysis, Renal Disease Other Genitourinary History: hemodialysis shunt in left upper arm with palpable bruit Musculoskeletal History: Reports: Fracture Neurological History: Reports: None Psychiatric History: Reports: None Endocrine/Metabolic History: Reports: Diabetes, Type II, IDDM, Obesity/BMI 30+ Hematologic History: Reports: Anticoagulation Therapy Immunologic History: Reports: None Oncologic (Cancer) History: Reports: None Dermatologic History: Reports: None - Past Surgical History HEENT Surgical History: Reports: Oral Surgery Neurological Surgical History: Reports: None Social & Family History - Family History Family Medical History: Noncontributory - Caffeine Use Caffeine Use: Reports: Coffee, Soda, Tea - Living Situation & Occupation Living situation: Reports: , with Family ED ROS GENERAL - Review of Systems Review Of Systems: ROS reveals no pertinent complaints other than HPI. ED EXAM, GENERAL - Physical Exam Exam: See Below Exam Limited By: No Limitations General Appearance: Alert, No Apparent Distress, Obese Eye Exam: Bilateral Eye: Normal Inspection Ears: Hearing Grossly Normal Nose: Normal Inspection Throat/Mouth: Normal Oropharynx, Normal Voice, No Airway Compromise Head: Atraumatic, Normocephalic Neck: Normal Inspection Respiratory/Chest: No Respiratory Distress, Lungs Clear, No Accessory Muscle Use , Decreased Breath Sounds Cardiovascular: Regular Rate, Rhythm GI/Abdominal: Normal Bowel Sounds, Soft, Non-Tender, No Distention (Male) Exam: Deferred Rectal (Males) Exam: Deferred Back Exam: Normal Inspection Neurological: Alert, Oriented, No Motor/Sensory Deficits Psychiatric: Normal Mood Skin Exam: Warm, Dry, Intact, Normal Color, No Rash Course - Vital Signs Last Recorded V/S: Last Vital Signs Temp 37.1 C 10/29/17 01:32 Pulse 82 10/29/17 01:32 Resp 18 10/29/17 01:32 BP 172/86 H 10/29/17 01:32 Pulse Ox 96 10/29/17 01:32 - Orders/Labs/Meds Orders: Active Orders 24 hr Category Date Time Status Peripheral IV Care [RC] . DIRECTED Care 10/28/17 17:43 Active Sodium Chloride 0.9% [Saline Flush] Med 10/28/17 17:42 Active 10 ml FLUSH ASDIRECTED PRN Peripheral IV Insertion Adult [OM.PC] Stat Oth 10/28/17 17:43 Ordered Medication Orders Sodium Chloride (Saline Flush) 10 ml FLUSH ASDIRECTED PRN PRN Reason: Keep Vein Open Last Admin: 10/28/17 18:09 Dose: 10 ml Labs: Laboratory Tests 10/28/17 10/28/17 10/28/17 Range/Units 17:58 17:58 17:58 WBC 5.2 (5.0-10.0) 10^3/uL RBC 2.41 L (4.6-6.2) 10^6/uL Hgb 6.2 L* (14.0-18.0) g/dL Hct 21.1 L (40.0-54.0) % MCV 87.6 (80-100) fL MCH 25.7 L (27.0-34.0) pg MCHC 29.4 L (33.0-35.0) g/dL Plt Count 213 D (150-450) 10^3/uL Neut % (Auto) 57.1 (42.2-75.2) % Lymph % (Auto) 26.4 (20.5-50.1) % [place] % (Auto) 11.3 H (2-8) % Eos % (Auto) 4.2 H (1.0-3.0) % Baso % (Auto) 1.0 (0.0-1.0) % PT 16.8 H (9.0-12.0) SEC INR 1.7 H (0.9-1.2) Sodium (135-145) mmol/L Potassium (3.6-5.0) mmol/L Chloride (101-111) mmol/L Carbon Dioxide (21.0-31.0) mmol/L Anion Gap BUN (7-18) mg/dL Creatinine (0.6-1.3) mg/dL Est Cr Clr Drug Dosing mL/min Estimated GFR (MDRD) BUN/Creatinine Ratio Glucose (74-105) mg/dL Calcium (8.4-10.2) mg/dl Total Bilirubin (0.2-1.0) mg/dL AST (10-42) IU/L ALT (10-60) IU/L Alkaline Phosphatase (42-121) IU/L Total Protein (6.7-8.2) g/dl Albumin (3.2-5.5) g/dl Globulin Albumin/Globulin Ratio Blood Type O POSITIVE Gel Antibody Screen Negative Crossmatch See Detail 10/28/17 10/29/17 Range/Units 17:58 01:35 WBC 5.7 (5.0-10.0) 10^3/uL RBC 2.71 L (4.6-6.2) 10^6/uL Hgb 7.0 L (14.0-18.0) g/dL Hct 23.2 L (40.0-54.0) % MCV 85.6 (80-100) fL MCH 25.8 L (27.0-34.0) pg MCHC 30.2 L (33.0-35.0) g/dL Plt Count 197 (150-450) 10^3/uL Neut % (Auto) 51.7 (42.2-75.2) % Lymph % (Auto) 28.1 (20.5-50.1) % [place] % (Auto) 14.9 H (2-8) % Eos % (Auto) 4.4 H (1.0-3.0) % Baso % (Auto) 0.9 (0.0-1.0) % PT (9.0-12.0) SEC INR (0.9-1.2) Sodium 138 (135-145) mmol/L Potassium 3.6 (3.6-5.0) mmol/L Chloride 96 L (101-111) mmol/L Carbon Dioxide 31.0 (21.0-31.0) mmol/L Anion Gap 14.6 BUN 30 H (7-18) mg/dL Creatinine 9.4 H D (0.6-1.3) mg/dL Est Cr Clr Drug Dosing 10.93 mL/min Estimated GFR (MDRD) 6 BUN/Creatinine Ratio 3.19 Glucose 97 (74-105) mg/dL Calcium 8.5 (8.4-10.2) mg/dl Total Bilirubin 0.5 (0.2-1.0) mg/dL AST 18 (10-42) IU/L ALT 7 L (10-60) IU/L Alkaline Phosphatase 57 (42-121) IU/L Total Protein 6.4 L (6.7-8.2) g/dl Albumin 2.9 L (3.2-5.5) g/dl Globulin 3.5 Albumin/Globulin Ratio 0.83 Blood Type Gel Antibody Screen Crossmatch Meds: Medications Generic Name Dose Route Start Last Admin Trade Name Freq PRN Reason Stop Dose Admin Sodium Chloride 10 ml 10/28/17 17:42 10/28/17 18:09 Saline Flush FLUSH 10 ml ASDIRECTED PRN Administration Keep Vein Open Discontinued Medications Generic Name Dose Route Start Last Admin Trade Name Freq PRN Reason Stop Dose Admin Al Hydroxide/Mg Hydroxide 30 ml 10/28/17 18:02 10/28/17 18:09 Gi Cocktail PO 10/28/17 18:03 30 ml ONETIME ONE Administration - Re-Assessments/Exams Free Text/Narrative Re-Assessment/Exam: 10/28/17 19:21 Care of pt transferred to [facility] at 1900HR shift change with pt held as extended ER stay for transfusion of 2 units of PRBC's. Departure - Departure Disposition: Home, Self-Care 01 Condition: Fair Clinical Impression: Anemia in chronic kidney disease, on chronic dialysis - Discharge Information Instructions: Blood Transfusion, Adult, [id number], Anemia Forms: ED Department Discharge Additional Instructions: Follow up with your hand almond blancher October 31 for recheck. <Hi Patel - Last Filed: 10/29/17 02:16> Departure - Departure Time of Disposition: 02:16
[2017-10-28] MEDS: GI Cocktail Oral Solution 30 ML PO ONE (18:09)
[2017-10-28] MEDS: Sodium Chloride 0.9% 10 ML Syringe FLUSH PRN (18:09)
[2017-10-29 01:31] VITALS: BP 172/86
== END 2017-10-29 02:30 | disposition home or self-care (01) ==
LOC: DL.ED 17:33
DX: I12.9 Hypertensive chronic kidney disease with stage 1 through stage 4 chronic kidney disease, or unspecified chronic kidney disease (principal); E11.22 Type 2 diabetes mellitus with diabetic chronic kidney disease; D63.1 Anemia in chronic kidney disease; N18.9 Chronic kidney disease, unspecified; Z99.2 Dependence on renal dialysis; Z79.01 Long term (current) use of anticoagulants; Z79.82 Long term (current) use of aspirin; Z79.4 Long term (current) use of insulin; Z79.899 Other long term (current) drug therapy; Z88.8 Allergy status to other drugs, medicaments and biological substances
CPT/HCPCS: 36415; 36430; 80053; 85025; 85610; 86850; 86900; 86901; 86920; 86922; 99283; 99284; A9270-GY; J7050; P9016

== ENCOUNTER 2017-11-24 19:16 | Emergency (ER) | payer MEDICARE, MEDICAID ==
--- NOTE | 2017-11-25 03:42 | EDM.PDOC ---
ED HPI GENERAL MEDICAL PROBLEM - General Chief Complaint: General Stated Complaint: BLOOD TRANSFUSION- SUPPOSED TO GO THROUGH ER Time Seen by Provider: 11/24/17 20:40 Source of Information: Reports: Patient, RN, RN Notes Reviewed History Limitations: Reports: No Limitations - History of Present Illness INITIAL COMMENTS - FREE TEXT/NARRATIVE: Pt to ER with c/o low hemaglobin. 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 Onset: Gradual - Related Data Allergies Allergy/AdvReac Type Severity Reaction Status Date / Time metformin Allergy Nausea and Verified 11/24/17 20:30 Vomiting Home Meds: Home Meds Aspirin [Aspirin EC] 81 mg PO DAILY 02/15/15 [History] Calcium Carbonate 600 mg PO DAILY 02/15/15 [History] Furosemide 40 mg PO DAILY 02/15/15 [History] Insulin Detemir [Levemir] 25 units SQ DAILY 02/15/15 [History] Simvastatin [Zocor] 20 mg PO DAILY 02/15/15 [History] Warfarin [Coumadin] 3 mg PO DAILY 02/15/16 [History] Hydrocodone/Acetaminophen [Hydrocodon-Acetaminophen 5-325] 1 tab PO BEDTIME 06/08 [History] Insulin Aspart [NovoLOG] 14 units SQ TID 05/23/16 [History] Docusate Sodium [Colace] 200 mg PO DAILY 06/28/16 [History] Past Medical History HEENT History: Reports: Impaired Vision Other HEENT History: wears glasses Cardiovascular History: Reports: Afib, High Cholesterol, Hypertension Respiratory History: Reports: Bronchitis, Recurrent, Sleep Apnea Gastrointestinal History: Reports: Chronic Constipation Genitourinary History: Reports: Dialysis, Renal Disease Other Genitourinary History: hemodialysis shunt in left upper arm with palpable bruit Musculoskeletal History: Reports: Fracture Neurological History: Reports: None Psychiatric History: Reports: None Endocrine/Metabolic History: Reports: Diabetes, Type II, IDDM, Obesity/BMI 30+ Hematologic History: Reports: Anticoagulation Therapy Immunologic History: Reports: None Oncologic (Cancer) History: Reports: None Dermatologic History: Reports: None - Past Surgical History HEENT Surgical History: Reports: Oral Surgery Neurological Surgical History: Reports: None Social & Family History - Family History Family Medical History: Noncontributory - Tobacco Use Smoking Status *Q: Never Smoker Second Hand Smoke Exposure: No - Caffeine Use Caffeine Use: Reports: Coffee, Soda, Tea - Recreational Drug Use Recreational Drug Use: No - Living Situation & Occupation Living situation: Reports: , with Family ED ROS GENERAL - Review of Systems Review Of Systems: ROS reveals no pertinent complaints other than HPI. ED EXAM, GENERAL - Physical Exam Exam: See Below Exam Limited By: No Limitations General Appearance: Alert, WD/WN, No Apparent Distress, Lethargic Eye Exam: Bilateral Eye: EOMI, Normal Inspection Ears: Normal External Exam, Hearing Grossly Normal Nose: Normal Inspection Throat/Mouth: Normal Inspection, Normal Voice, No Airway Compromise Head: Atraumatic, Normocephalic Neck: Normal Inspection, Supple, Non-Tender, Full Range of Motion Respiratory/Chest: No Respiratory Distress, Lungs Clear, Normal Breath Sounds, No Accessory Muscle Use, Chest Non-Tender Cardiovascular: Normal Peripheral Pulses, Regular Rate, Rhythm, Systolic Murmur GI/Abdominal: Normal Bowel Sounds, Soft, Non-Tender (Male) Exam: Deferred Rectal (Males) Exam: Deferred Back Exam: Normal Inspection, Full Range of Motion Extremities: Normal Inspection Neurological: Alert, Oriented, Normal Cognition Psychiatric: Normal Affect, Normal Mood Skin Exam: Warm, Dry, Intact, Normal Color, No Rash Lymphatic: No Adenopathy Course - Vital Signs Last Recorded V/S: Last Vital Signs Temp 98.1 F 11/25/17 03:32 Pulse 73 11/25/17 03:32 Resp 14 11/25/17 03:32 BP 139/78 11/25/17 03:32 Pulse Ox 96 11/24/17 20:27 - Orders/Labs/Meds Orders: Active Orders 24 hr Category Date Time Status Transfuse PRBC [Transfuse Red Blood Cells] [COMM] Stat Oth 11/24/17 19:28 Ordered Labs: Laboratory Tests 11/24/17 11/24/17 Range/Units 19:47 19:47 WBC 6.8 (5.0-10.0) 10^3/uL RBC 2.93 L (4.6-6.2) 10^6/uL Hgb 7.4 L (14.0-18.0) g/dL Hct 25.0 L (40.0-54.0) % MCV 85.3 (80-100) fL MCH 25.3 L (27.0-34.0) pg MCHC 29.6 L (33.0-35.0) g/dL Plt Count 242 (150-450) 10^3/uL Neut % (Auto) 72.5 (42.2-75.2) % Lymph % (Auto) 13.3 L (20.5-50.1) % [place] % (Auto) 12.0 H (2-8) % Eos % (Auto) 1.5 (1.0-3.0) % Baso % (Auto) 0.7 (0.0-1.0) % Blood Type O POSITIVE Gel Antibody Screen Negative Crossmatch See Detail Departure - Departure Time of Disposition: 04:07 Disposition: Home, Self-Care 01 Clinical Impression: Anemia in chronic kidney disease, on chronic dialysis - Discharge Information Instructions: Blood Transfusion, Adult, [id number], Anemia Referrals: Arnoldo Sanders MD [Primary Care Provider] - Forms: ED Department Discharge Additional Instructions: Follow up with your field crop farm worker and dialysis Return to the ER with any further problems. - My Orders Last 24 Hours: My Active Orders 11/24/17 19:28 Transfuse PRBC [Transfuse Red Blood Cells] [COMM] Stat - Assessment/Plan Last 24 Hours: My Active Orders 11/24/17 19:28 Transfuse PRBC [Transfuse Red Blood Cells] [COMM] Stat
[2017-11-25 04:44] VITALS: BP 142/85
== END 2017-11-25 05:15 | disposition home or self-care (01) ==
LOC: DL.ED 19:16
DX: E11.22 Type 2 diabetes mellitus with diabetic chronic kidney disease (principal); N18.9 Chronic kidney disease, unspecified; D63.1 Anemia in chronic kidney disease; E78.00 Pure hypercholesterolemia, unspecified; I10 Essential (primary) hypertension; Z99.2 Dependence on renal dialysis; Z88.8 Allergy status to other drugs, medicaments and biological substances; Z79.82 Long term (current) use of aspirin; Z79.01 Long term (current) use of anticoagulants; Z79.4 Long term (current) use of insulin; Z79.899 Other long term (current) drug therapy
CPT/HCPCS: 36415; 36430; 85025; 86850; 86900; 86901; 86920; 86922; 99283; 99284; P9016

== ENCOUNTER 2018-10-07 19:47 | Emergency (ER) | payer MEDICARE, MEDICAID ==
[2018-10-07 19:55] VITALS: BP 124/66
[2018-10-07] MEDS ORDERED: Clindamycin Phosphate 900 MG in Sodium Chloride 0.9% 100 ML IV ONE (20:06)
--- NOTE | 2018-10-07 20:11 | EDM.PDOC ---
ED HPI GENERAL MEDICAL PROBLEM - General Chief Complaint: Lower Extremity Injury/Pain Stated Complaint: RT LEG PAIN Time Seen by Provider: 10/07/18 20:08 Source of Information: Reports: Patient History Limitations: Reports: No Limitations - History of Present Illness INITIAL COMMENTS - FREE TEXT/NARRATIVE: c/o right foot pain few days, did see surgeon few days ago for wound care, told was fine, but now hurts more and pain meds not helping much. Right Foot Pain Score (Numeric/FACES): 7 - Related Data Allergies Allergy/AdvReac Type Severity Reaction Status Date / Time metformin Allergy Nausea and Verified 10/07/18 20:43 Vomiting Home Meds: Home Meds Calcium Carbonate 600 mg PO DAILY 02/15/15 [History] Furosemide 40 mg PO DAILY 02/15/15 [History] Simvastatin [Zocor] 20 mg PO DAILY 02/15/15 [History] Warfarin [Coumadin] 4 mg PO DAILY 02/15/16 [History] Hydrocodone/Acetaminophen [Hydrocodon-Acetaminophen 5-325] 1 tab PO BEDTIME 06/08 [History] Insulin Aspart [NovoLOG] 10 units SQ TID 05/23/16 [History] Docusate Sodium [Colace] 200 mg PO DAILY 06/28/16 [History] Past Medical History HEENT History: Reports: Impaired Vision Other HEENT History: wears glasses Cardiovascular History: Reports: Afib, High Cholesterol, Hypertension Respiratory History: Reports: Bronchitis, Recurrent, Sleep Apnea Gastrointestinal History: Reports: Chronic Constipation Genitourinary History: Reports: Dialysis, Renal Disease Other Genitourinary History: hemodialysis shunt in left upper arm with palpable bruit Musculoskeletal History: Reports: Fracture Neurological History: Reports: None Psychiatric History: Reports: None Endocrine/Metabolic History: Reports: Diabetes, Type II, IDDM, Obesity/BMI 30+ Hematologic History: Reports: Anticoagulation Therapy Immunologic History: Reports: None Oncologic (Cancer) History: Reports: None Dermatologic History: Reports: None - Past Surgical History HEENT Surgical History: Reports: Oral Surgery Neurological Surgical History: Reports: None Social & Family History - Family History Family Medical History: Noncontributory - Caffeine Use Caffeine Use: Reports: Coffee, Soda, Tea - Living Situation & Occupation Living situation: Reports: , with Family Review of Systems - Review of Systems Review Of Systems: ROS reveals no pertinent complaints other than HPI. ED EXAM, GENERAL - Physical Exam Exam: See Below Exam Limited By: No Limitations General Appearance: Alert, WD/WN, Mild Distress, Other (discomofrt) Ears: Hearing Grossly Normal Throat/Mouth: Normal Voice, No Airway Compromise Head: Atraumatic Neck: Non-Tender, Full Range of Motion Respiratory/Chest: No Respiratory Distress Cardiovascular: Regular Rate, Rhythm GI/Abdominal: Soft, Non-Tender Extremities: Other (right foot lateral edge ulcer, dried, local erythema without lymphangitis, NV wnl, gait limited to pain) Neurological: Alert, Oriented, Normal Cognition, No Motor/Sensory Deficits Psychiatric: Normal Affect, Normal Mood Skin Exam: Warm, Dry, Normal Color Lymphatic: No Adenopathy Course - Vital Signs Last Recorded V/S: Last Vital Signs Temp 37.7 C 10/07/18 19:54 Pulse 73 10/07/18 19:54 Resp 18 10/07/18 19:54 BP 124/66 10/07/18 19:54 Pulse Ox 94 L 10/07/18 19:54 - Orders/Labs/Meds Orders: Active Orders 24 hr Category Date Time Status CULTURE BLOOD [BC] Stat Lab 10/07/18 20:15 Received Labs: Laboratory Tests 10/07/18 10/07/18 10/07/18 Range/Units 20:15 20:15 20:15 WBC 8.8 (5.0-10.0) 10^3/uL RBC 2.91 L (4.6-6.2) 10^6/uL Hgb 8.1 L (14.0-18.0) g/dL Hct 26.6 L (40.0-54.0) % MCV 91.4 (80-100) fL MCH 27.8 (27.0-34.0) pg MCHC 30.5 L (33.0-35.0) g/dL Plt Count 253 (150-450) 10^3/uL Neut % (Auto) 73.4 (42.2-75.2) % Lymph % (Auto) 10.4 L (20.5-50.1) % [place] % (Auto) 10.0 H (2-8) % Eos % (Auto) 5.9 H (1.0-3.0) % Baso % (Auto) 0.3 (0.0-1.0) % Sodium 137 (135-145) mmol/L Potassium 3.3 L (3.6-5.0) mmol/L Chloride 94 L (101-111) mmol/L Carbon Dioxide 29.0 (21.0-31.0) mmol/L Anion Gap 17.3 BUN 18 (7-18) mg/dL Creatinine 6.4 H D (0.6-1.3) mg/dL Est Cr Clr Drug Dosing 16.05 mL/min Estimated GFR (MDRD) 9 BUN/Creatinine Ratio 2.81 Glucose 110 H (74-105) mg/dL Lactic Acid 1.4 (0.5-2.2) mmol/L Calcium 8.4 (8.4-10.2) mg/dl Total Bilirubin 0.7 (0.2-1.0) mg/dL AST 18 (10-42) IU/L ALT 11 (10-60) IU/L Alkaline Phosphatase 61 (42-121) IU/L Total Protein 6.8 (6.7-8.2) g/dl Albumin 3.1 L (3.2-5.5) g/dl Globulin 3.7 Albumin/Globulin Ratio 0.84 Meds: Medications Discontinued Medications Generic Name Dose Route Start Last Admin Trade Name Freq PRN Reason Stop Dose Admin Clindamycin Phosphate 900 mg/ 106 mls @ 200 mls/hr 10/07/18 20:06 10/07/18 20 :20 Sodium Chloride IV 10/07/18 20:37 200 mls/hr ONETIME ONE Administration - Re-Assessments/Exams Free Text/Narrative Re-Assessment/Exam: 10/07/18 21:16 results discussed with pt Departure - Departure Time of Disposition: 21:16 Disposition: Home, Self-Care 01 Condition: Fair Clinical Impression: Diabetic foot infection Foot ulcer, right Qualifiers: Non-pressure ulcer stage: with fat layer exposed Qualified Code(s): L97.512 - Non-pressure chronic ulcer of other part of right foot with fat layer exposed - Discharge Information Forms: ED Department Discharge Additional Instructions: 1) keep wound clean dry covered 2) daily dressing change 3) elevate foot as much as possible 4) notify foot doctor Tuesday rx given; clindamycin 150mg qid x 40 - My Orders Last 24 Hours: My Active Orders 10/07/18 20:15 CULTURE BLOOD [BC] Stat - Assessment/Plan Last 24 Hours: My Active Orders 10/07/18 20:15 CULTURE BLOOD [BC] Stat
[2018-10-07 21:10] LABS: ANION GAP 17.3
== END 2018-10-07 21:25 | disposition home or self-care (01) ==
LOC: DL.ED 19:47
DX: E11.621 Type 2 diabetes mellitus with foot ulcer (principal); L97.512 Non-pressure chronic ulcer of other part of right foot with fat layer exposed; I10 Essential (primary) hypertension; E78.00 Pure hypercholesterolemia, unspecified; I48.91 Unspecified atrial fibrillation; Z79.01 Long term (current) use of anticoagulants; Z79.4 Long term (current) use of insulin; Z79.899 Other long term (current) drug therapy; Z88.8 Allergy status to other drugs, medicaments and biological substances
CPT/HCPCS: 36415; 80053; 83605; 85025; 87040; 96365; 99283; J3490; J7050

== ENCOUNTER 2018-11-08 13:40 | Emergency (ER) | payer MEDICARE, MEDICAID ==
--- NOTE | 2018-11-08 14:04 | EDM.PDOC ---
ED HPI GENERAL MEDICAL PROBLEM - General Chief Complaint: General Stated Complaint: ELEVATED INR Time Seen by Provider: 11/08/18 13:55 Source of Information: Reports: Patient, Provider (Dr Sanders) History Limitations: Reports: No Limitations - History of Present Illness INITIAL COMMENTS - FREE TEXT/NARRATIVE: This 53 yo male patient was sent to the ED by Dr. Sanders due to an INR > 8 as measured at the [facility]. The patient has a history of atrial fibrillation as well as has been dealing with an infection in his foot. The patient has been on Doxycycline for his foot infection which was discontinued 2 days ago. The patient has not taken his Coumadin yet today. The patient denies any bruising or bleeding. Nursing staff called [facility] to check on the patient's lab results (hemoglobin) from yesterday as he had dialysis yesterday. The patient hemoglobin was 7.1 on November 02. Onset: Today Duration: Other Location: Reports: Other Quality: Reports: Other Severity: Mild Improves with: Reports: None Worsens with: Reports: Medication Context: Reports: Other Associated Symptoms: Reports: No Other Symptoms - Related Data Allergies Allergy/AdvReac Type Severity Reaction Status Date / Time metformin AdvReac Nausea and Verified 11/08/18 13:43 Vomiting Home Meds: Home Meds Warfarin [Coumadin] 4 mg PO DAILY 02/15/16 [History] Hydrocodone/Acetaminophen [Hydrocodon-Acetaminophen 5-325] 1 tab PO BEDTIME 06/08 [History] Insulin Aspart [NovoLOG] 10 units SQ TID 05/23/16 [History] Docusate Sodium [Colace] 100 mg PO BID PRN 06/28/16 [History] Albuterol/Ipratropium [DuoNeb 3.0-0.5 MG/3 ML] 3 ml INH QID PRN 11/08/18 [ History] Calcium Acetate [PhosLo] 2,668 mg PO TID 11/08/18 [History] Calcium Carbonate/Vitamin D3 [Calcium 500 + Vit D Caplet] 1 tab PO DAILY [History] Cholecalciferol (Vitamin D3) [Vitamin D3] 2,000 units PO DAILY 11/08/18 [History ] Lisinopril 20 mg PO DAILY 11/08/18 [History] Loratadine 10 mg PO DAILY PRN 11/08/18 [History] Metoprolol Tartrate 50 mg PO BID 11/08/18 [History] Multivitamin [Multiple Vitamins] 1 tab PO DAILY 11/08/18 [History] Omeprazole 40 mg PO DAILY 11/08/18 [History] Sertraline HCl 125 mg PO DAILY 11/08/18 [History] Silver Sulfadiazine [Silvadene 1% Cream 20 GM] 1 applic TOP DAILY 11/08/18 [ History] atorvaSTATin Calcium [Atorvastatin Calcium] 10 mg PO DAILY 11/08/18 [History] rOPINIRole HCl [Requip] 0.25 mg PO BEDTIME PRN 11/08/18 [History] Past Medical History HEENT History: Reports: Impaired Vision Other HEENT History: wears glasses Cardiovascular History: Reports: Afib, High Cholesterol, Hypertension Respiratory History: Reports: Bronchitis, Recurrent, Sleep Apnea Gastrointestinal History: Reports: Chronic Constipation Genitourinary History: Reports: Dialysis, Renal Disease Other Genitourinary History: hemodialysis shunt in left upper arm with palpable bruit Musculoskeletal History: Reports: Fracture Neurological History: Reports: None Psychiatric History: Reports: None Endocrine/Metabolic History: Reports: Diabetes, Type II, IDDM, Obesity/BMI 30+ Hematologic History: Reports: Anticoagulation Therapy Immunologic History: Reports: None Oncologic (Cancer) History: Reports: None Dermatologic History: Reports: None - Past Surgical History HEENT Surgical History: Reports: Oral Surgery Neurological Surgical History: Reports: None Social & Family History - Family History Family Medical History: Noncontributory - Caffeine Use Caffeine Use: Reports: Coffee, Soda, Tea - Living Situation & Occupation Living situation: Reports: , with Family ED ROS GENERAL - Review of Systems Review Of Systems: ROS reveals no pertinent complaints other than HPI. ED EXAM, GENERAL - Physical Exam Exam: See Below Exam Limited By: No Limitations General Appearance: Alert, WD/WN, No Apparent Distress Eye Exam: Bilateral Eye: EOMI, Normal Inspection, PERRL Ears: Normal External Exam, Normal Canal, Hearing Grossly Normal, Normal TMs Nose: Normal Inspection, Normal Mucosa, No Blood Throat/Mouth: Normal Inspection, Normal Lips, Normal Teeth, Normal Gums, Normal Oropharynx, Normal Voice, No Airway Compromise Head: Atraumatic, Normocephalic Neck: Normal Inspection, Supple, Non-Tender, Full Range of Motion Respiratory/Chest: No Respiratory Distress, Lungs Clear, Normal Breath Sounds, No Accessory Muscle Use, Chest Non-Tender Cardiovascular: Irregularly Irregular GI/Abdominal: Normal Bowel Sounds, Soft, Non-Tender, No Organomegaly, No Distention, No Abnormal Bruit, No Mass (Male) Exam: Deferred Rectal (Males) Exam: Deferred Back Exam: Normal Inspection, Full Range of Motion, NT Extremities: Normal Inspection, Normal Range of Motion, Non-Tender, Normal Capillary Refill, No Pedal Edema Neurological: Alert, Oriented, CN II-XII Intact, Normal Cognition, Normal Gait, Normal Reflexes, No Motor/Sensory Deficits Psychiatric: Normal Affect, Normal Mood Skin Exam: Warm, Dry, Intact, Normal Color, No Rash Lymphatic: No Adenopathy Course - Vital Signs Last Recorded V/S: Last Vital Signs Temp 37.0 C 11/08/18 15:05 Pulse 87 11/08/18 15:05 Resp 20 11/08/18 15:05 BP 154/89 H 11/08/18 15:05 Pulse Ox 100 11/08/18 15:05 - Orders/Labs/Meds Orders: Active Orders 24 hr Category Date Time Status Phytonadione [AquaMephyton] 5 mg Med 11/08/18 15:10 Ordered Sodium Chloride 0.9% [Normal Saline] 50 ml IV NOW Medication Orders Phytonadione 5 mg/ Sodium (Chloride) 50.5 mls @ 100 mls/hr IV NOW ONE Stop: 11/08/18 15:40 Labs: Laboratory Tests 11/08/18 11/08/18 11/08/18 Range/Units 13:58 13:58 13:58 WBC 6.9 (5.0-10.0) 10^3/uL RBC 2.58 L (4.6-6.2) 10^6/uL Hgb 6.7 L* (14.0-18.0) g/dL Hct 23.1 L (40.0-54.0) % MCV 89.5 (80-100) fL MCH 26.0 L (27.0-34.0) pg MCHC 29.0 L (33.0-35.0) g/dL Plt Count 339 D (150-450) 10^3/uL Neut % (Auto) 68.4 (42.2-75.2) % Lymph % (Auto) 18.1 L (20.5-50.1) % [place] % (Auto) 9.0 H (2-8) % Eos % (Auto) 4.2 H (1.0-3.0) % Baso % (Auto) 0.3 (0.0-1.0) % PT 100.3 H D (9.0-12.0) SEC INR > 10.0 H* (0.9-1.2) Blood Type O POSITIVE Gel Antibody Screen Negative Crossmatch See Detail Meds: Medications Generic Name Dose Route Start Last Admin Trade Name Marcos PRN Reason Stop Dose Admin Phytonadione 5 mg/ Sodium 50.5 mls @ 100 mls/hr 11/08/18 15:10 Chloride IV 11/08/18 15:40 NOW ONE - Re-Assessments/Exams Free Text/Narrative Re-Assessment/Exam: 11/08/18 14:12 The patient reports feeling tired and sluggish, but believes this may have been the result of dialysis. 11/08/18 15:17 Discussed the patient's history and lab results with Dr. Starks. Dr. Starks advised transferring the patient to a facility that could do dialysis if needed. Departure - Departure Time of Disposition: 15:18 Disposition: DC/[facility] to [facility] 02 Condition: Fair Clinical Impression: Anticoagulation excessive, Dialysis patient Anemia Qualifiers: Anemia type: unspecified type Qualified Code(s): D64.9 - Anemia, unspecified - Discharge Information *PRESCRIPTION DRUG MONITORING PROGRAM REVIEWED*: Not Applicable *COPY OF PRESCRIPTION DRUG MONITORING REPORT IN PATIENT YANETH: Not Applicable Forms: Interfacility Transfer EMTALA Care Plan Goals: Discussed the patient's history, examination and lab results with Dr. Gary. Dr. Gary accepted the patient for continued evaluation and management as an inpatient at [facility] in [place]. The patient was given 5 mg of IV Vitamine K and 1 unit of blood was started prior to transfer to [place]. The patient will be transported by [facility]. - My Orders Last 24 Hours: My Active Orders 11/08/18 15:10 Phytonadione [AquaMephyton] 5 mg Sodium Chloride 0.9% [Normal Saline] 50 ml IV NOW - Assessment/Plan Last 24 Hours: My Active Orders 11/08/18 15:10 Phytonadione [AquaMephyton] 5 mg Sodium Chloride 0.9% [Normal Saline] 50 ml IV NOW
[2018-11-08] MEDS ORDERED: Phytonadione 5 MG in Sodium Chloride 0.9% 50 ML IV ONE (15:10)
[2018-11-08 15:46] VITALS: BP 134/82
== END 2018-11-08 16:03 ==
LOC: DL.ED 13:40
DX: D64.9 Anemia, unspecified (principal); R79.1 Abnormal coagulation profile; N28.9 Disorder of kidney and ureter, unspecified; Z79.01 Long term (current) use of anticoagulants; Z79.899 Other long term (current) drug therapy; Z79.4 Long term (current) use of insulin; E78.00 Pure hypercholesterolemia, unspecified; I48.91 Unspecified atrial fibrillation; I10 Essential (primary) hypertension; E11.9 Type 2 diabetes mellitus without complications; Z99.2 Dependence on renal dialysis
CPT/HCPCS: 36415; 36430; 85025; 85610; 86850; 86900; 86901; 86920; 86922; 96374; 99285-25; J3430; J7050; P9016

== ENCOUNTER 2019-01-19 16:21 | Emergency (ER) | payer MEDICARE, MEDICAID ==
[2019-01-19] MEDS ORDERED: Sodium Chloride 0.9% 10 ML Syringe FLUSH PRN (16:27)
[2019-01-19 17:09] LABS: ANION GAP 17.9; CHLORIDE,CL 96 mmol/L (101-111); SODIUM,NA 138 mmol/L (135-145)
[2019-01-19] MEDS ORDERED: Furosemide 40 MG/4 ML VIAL IV ONE ×2 (17:31→21:30)
[2019-01-19] MEDS ORDERED: Acetaminophen 325 MG Tab PO ONE (17:31)
[2019-01-19] MEDS ORDERED: diphenhydrAMINE 50 MG/ML SDV IV ONE (17:31)
--- NOTE | 2019-01-19 18:14 | EDM.PDOC ---
Scribed by Claire Hoskins 01/19/19 [id number] for Steve Claros MD <Steve Claros - Last Filed: 01/19/19 18:09> ED HPI GENERAL MEDICAL PROBLEM - General Chief Complaint: Gastrointestinal Problem Stated Complaint: BLOOD IN STOOL, ANEMIA Time Seen by Provider: 01/19/19 16:27 Source of Information: Reports: Patient, RN, RN Notes Reviewed History Limitations: Reports: No Limitations - History of Present Illness INITIAL COMMENTS - FREE TEXT/NARRATIVE: Pt sent to ER by Dr. Birch (acetone recovery worker) with history that pt reported black diarrhea stools while at dialysis in [place]. Pt has Hx of ESRD on dialysis, anticoagulated due to Hx of A-fib/A-flutter, and chronic anemia. Pt reports Hx of a GI bleed in November in 2018 and was transferred to [facility], but states that despite upper and lower endoscopy no source of bleeding was found. Pt has had several blood transfusions. Pt denies lightheadedness, syncope, chest pain, or shortness of breath. Duration: Chronic, Recurring Location: Reports: Abdomen, Generalized Quality: Reports: Other (denies pain) Severity: Moderate Improves with: Reports: None Worsens with: Reports: None Associated Symptoms: Reports: No Other Symptoms - Related Data Allergies Allergy/AdvReac Type Severity Reaction Status Date / Time metformin AdvReac Nausea and Verified 01/19/19 17:17 Vomiting Home Meds: Home Meds Warfarin [Coumadin] 4 mg PO DAILY 02/15/16 [History] Hydrocodone/Acetaminophen [Hydrocodon-Acetaminophen 5-325] 1 tab PO BEDTIME 06/08 [History] Insulin Aspart [NovoLOG] 10 units SQ TID 05/23/16 [History] Docusate Sodium [Colace] 100 mg PO BID PRN 06/28/16 [History] Albuterol/Ipratropium [DuoNeb 3.0-0.5 MG/3 ML] 3 ml INH QID PRN 11/08/18 [ History] Calcium Acetate [PhosLo] 2,668 mg PO TID 11/08/18 [History] Calcium Carbonate/Vitamin D3 [Calcium 500 + Vit D Caplet] 1 tab PO DAILY [History] Cholecalciferol (Vitamin D3) [Vitamin D3] 2,000 units PO DAILY 11/08/18 [History ] Lisinopril 20 mg PO DAILY 11/08/18 [History] Loratadine 10 mg PO DAILY PRN 11/08/18 [History] Metoprolol Tartrate 50 mg PO BID 11/08/18 [History] Multivitamin [Multiple Vitamins] 1 tab PO DAILY 11/08/18 [History] Omeprazole 40 mg PO DAILY 11/08/18 [History] Sertraline HCl 125 mg PO DAILY 11/08/18 [History] Silver Sulfadiazine [Silvadene 1% Cream 20 GM] 1 applic TOP DAILY 11/08/18 [ History] atorvaSTATin Calcium [Atorvastatin Calcium] 10 mg PO DAILY 11/08/18 [History] rOPINIRole HCl [Requip] 0.25 mg PO BEDTIME PRN 11/08/18 [History] Past Medical History HEENT History: Reports: Impaired Vision Other HEENT History: wears glasses Cardiovascular History: Reports: Afib, High Cholesterol, Hypertension Respiratory History: Reports: Bronchitis, Recurrent, Sleep Apnea Gastrointestinal History: Reports: Chronic Constipation Genitourinary History: Reports: Dialysis, Renal Disease Other Genitourinary History: hemodialysis shunt in left upper arm with palpable bruit Musculoskeletal History: Reports: Fracture Neurological History: Reports: Neuropathy, Diabetic Psychiatric History: Reports: None Endocrine/Metabolic History: Reports: Diabetes, Type II, IDDM, Obesity/BMI 30+ Hematologic History: Reports: Anticoagulation Therapy Immunologic History: Reports: None Oncologic (Cancer) History: Reports: None Dermatologic History: Reports: Decubitus Ulcer - Infectious Disease History Infectious Disease History: Reports: Chicken Pox, Measles - Past Surgical History HEENT Surgical History: Reports: Oral Surgery Neurological Surgical History: Reports: None Social & Family History - Family History Family Medical History: Noncontributory - Caffeine Use Caffeine Use: Reports: Coffee, Energy Drinks, Soda, Tea - Living Situation & Occupation Living situation: Reports: , with Family ED ROS GENERAL - Review of Systems Review Of Systems: ROS reveals no pertinent complaints other than HPI. ED EXAM, GI/ABD - Physical Exam Exam: See Below Exam Limited By: No Limitations General Appearance: Alert, WD/WN, No Apparent Distress Eyes: Bilateral: Normal Appearance, EOMI Nose: Normal Inspection, No Blood Throat/Mouth: Normal Inspection, Normal Lips, Normal Oropharynx, Normal Voice, No Airway Compromise Head: Atraumatic, Normocephalic Neck: Normal Inspection, Supple, Non-Tender, Full Range of Motion Respiratory/Chest: No Respiratory Distress, Lungs Clear, Normal Breath Sounds, No Accessory Muscle Use, Chest Non-Tender Cardiovascular: Irregularly Irregular GI/Abdominal Exam: Normal Bowel Sounds, Soft, Non-Tender, No Distention. No: Guarding, Rigid, Rebound Rectal (Males) Exam: Black Stool, Heme + Stool Back Exam: Normal Inspection Extremities: Normal Range of Motion, Non-Tender, No Pedal Edema Neurological: Alert, Oriented, No Motor/Sensory Deficits Psychiatric: Normal Affect, Normal Mood Skin Exam: Warm, Dry, Intact, Normal Color, No Rash Course - Vital Signs Last Recorded V/S: Last Vital Signs Temp 36.6 C 01/20/19 00:30 Pulse 80 01/20/19 00:30 Resp 18 01/20/19 00:30 BP 130/78 01/20/19 00:30 Pulse Ox 100 01/19/19 23:05 - Orders/Labs/Meds Orders: Active Orders 24 hr Category Date Time Status Peripheral IV Care [RC] . DIRECTED Care 01/19/19 16:27 Active Verify Patient Consent Obtain [RC] ASDIRECTED Care 01/19/19 17:31 Active Late Tray [DIET] Routine Diet 01/19/19 17:54 Active [place], Stool [OCCULT BLOOD DIAGNOSTIC] [OP] Stat Lab 01/19/19 16:27 Ordered Sodium Chloride 0.9% [Saline Flush] Med 01/19/19 16:27 Active 10 ml FLUSH ASDIRECTED PRN Peripheral IV Insertion Adult [OM.PC] Stat Oth 01/19/19 16:26 Ordered Transfuse PRBC [Transfuse Red Blood Cells] [COMM] Stat Oth 01/19/19 17:31 Ordered Transfuse Red Blood Cells [COMM] Stat Oth 01/19/19 17:31 Ordered Medication Orders Sodium Chloride (Saline Flush) 10 ml FLUSH ASDIRECTED PRN PRN Reason: Keep Vein Open Last Admin: 01/19/19 17:00 Dose: 10 ml Labs: Laboratory Tests 01/19/19 01/19/19 01/19/19 Range/Units 16:40 16:40 16:40 WBC 3.9 L (5.0-10.0) 10^3/uL RBC 2.16 L (4.6-6.2) 10^6/uL Hgb 5.9 L* (14.0-18.0) g/dL Hct 20.2 L* (40.0-54.0) % MCV 93.5 D (80-100) fL MCH 27.3 (27.0-34.0) pg MCHC 29.2 L (33.0-35.0) g/dL Plt Count 201 (150-450) 10^3/uL Neut % (Auto) 55.0 (42.2-75.2) % Lymph % (Auto) 24.8 (20.5-50.1) % [place] % (Auto) 12.4 H (2-8) % Eos % (Auto) 7.0 H (1.0-3.0) % Baso % (Auto) 0.8 (0.0-1.0) % PT 23.7 H D (9.0-12.0) SEC INR 2.4 H (0.9-1.2) APTT 33.1 (22.0-34.0) SEC Sodium 138 (135-145) mmol/L Potassium 3.9 (3.6-5.0) mmol/L Chloride 96 L (101-111) mmol/L Carbon Dioxide 28.0 (21.0-31.0) mmol/L Anion Gap 17.9 BUN 62 H (7-18) mg/dL Creatinine 9.9 H D (0.6-1.3) mg/dL Est Cr Clr Drug Dosing TNP Estimated GFR (MDRD) 6 BUN/Creatinine Ratio 6.26 Glucose 117 H (74-105) mg/dL Calcium 8.7 (8.4-10.2) mg/dl Total Bilirubin 0.8 (0.2-1.0) mg/dL AST 26 (10-42) IU/L ALT 15 (10-60) IU/L Alkaline Phosphatase 73 (42-121) IU/L Total Protein 6.7 (6.7-8.2) g/dl Albumin 3.1 L (3.2-5.5) g/dl Globulin 3.6 Albumin/Globulin Ratio 0.86 Amylase 113 H (28-100) U/L Lipase 57 H (22-51) U/L Blood Type Gel Antibody Screen Crossmatch 01/19/19 Range/Units 16:40 WBC (5.0-10.0) 10^3/uL RBC (4.6-6.2) 10^6/uL Hgb (14.0-18.0) g/dL Hct (40.0-54.0) % MCV (80-100) fL MCH (27.0-34.0) pg MCHC (33.0-35.0) g/dL Plt Count (150-450) 10^3/uL Neut % (Auto) (42.2-75.2) % Lymph % (Auto) (20.5-50.1) % [place] % (Auto) (2-8) % Eos % (Auto) (1.0-3.0) % Baso % (Auto) (0.0-1.0) % PT (9.0-12.0) SEC INR (0.9-1.2) APTT (22.0-34.0) SEC Sodium (135-145) mmol/L Potassium (3.6-5.0) mmol/L Chloride (101-111) mmol/L Carbon Dioxide (21.0-31.0) mmol/L Anion Gap BUN (7-18) mg/dL Creatinine (0.6-1.3) mg/dL Est Cr Clr Drug Dosing Estimated GFR (MDRD) BUN/Creatinine Ratio Glucose (74-105) mg/dL Calcium (8.4-10.2) mg/dl Total Bilirubin (0.2-1.0) mg/dL AST (10-42) IU/L ALT (10-60) IU/L Alkaline Phosphatase (42-121) IU/L Total Protein (6.7-8.2) g/dl Albumin (3.2-5.5) g/dl Globulin Albumin/Globulin Ratio Amylase (28-100) U/L Lipase (22-51) U/L Blood Type O POSITIVE Gel Antibody Screen Negative Crossmatch See Detail Meds: Medications Generic Name Dose Route Start Last Admin Trade Name Freq PRN Reason Stop Dose Admin Sodium Chloride 10 ml 01/19/19 16:27 01/19/19 17:00 Saline Flush FLUSH 10 ml ASDIRECTED PRN Administration Keep Vein Open Discontinued Medications Generic Name Dose Route Start Last Admin Trade Name Freq PRN Reason Stop Dose Admin Acetaminophen 650 mg 08/30/19 17:31 01/19/19 17:59 Tylenol PO 01/19/19 17:32 650 mg NOW ONE Administration Diphenhydramine HCl 25 mg 01/19/19 17:31 01/19/19 17:59 Benadryl IV 01/19/19 17:32 25 mg ONETIME ONE Administration Furosemide 40 mg 01/19/19 21:30 01/19/19 21:41 Lasix IV 01/19/19 21:31 40 mg NOW ONE Administration - Re-Assessments/Exams Free Text/Narrative Re-Assessment/Exam: 01/19/19 18:09 I discussed the case with Dr. Birch (pt's acetone recovery worker). Plan to transfuse 2 units PRBC's as extended stay ER, and pt with f/u Jan.[address] Sanders (PCP) to have GI consult/referral and coordinate the care so that Dr. Birch is also kept updated on any GI findings. Departure - Departure Disposition: Home, Self-Care 01 Condition: Fair Clinical Impression: Chronic GI bleeding, Chronic kidney disease with end stage renal failure on dialysis Anemia Qualifiers: Anemia type: due to chronic kidney disease Chronic kidney disease stage: on chronic dialysis Qualified Code(s): N18.6 - End stage renal disease - Discharge Information *PRESCRIPTION DRUG MONITORING PROGRAM REVIEWED*: No *COPY OF PRESCRIPTION DRUG MONITORING REPORT IN PATIENT YANETH: No Instructions: Blood Transfusion, Adult, [id number], Anemia, Gastrointestinal Bleeding Forms: ED Department Discharge Additional Instructions: Do not take Coumadin (Warfarin) dose tonight. Follow up with Dr. Sanders Jan.23 for a referral to GI and to coordinate the care so that Dr. Birch is kept aware of other specialty findings. <Hi Patel M - Last Filed: 01/20/19 00:50> Departure - Departure Time of Disposition: 00:50 I have read and agree with the documentation that has been completed regarding this visit. By signing this record, I attest that the documentation was completed in my physical presence and is an accurate record of the encounter.
[2019-01-20 01:38] VITALS: BP 107/28
== END 2019-01-20 01:10 | disposition home or self-care (01) ==
LOC: DL.ED 16:21
DX: I12.0 Hypertensive chronic kidney disease with stage 5 chronic kidney disease or end stage renal disease (principal); N18.6 End stage renal disease; K92.2 Gastrointestinal hemorrhage, unspecified; I48.91 Unspecified atrial fibrillation; E78.00 Pure hypercholesterolemia, unspecified; E11.40 Type 2 diabetes mellitus with diabetic neuropathy, unspecified; Z99.2 Dependence on renal dialysis; Z88.8 Allergy status to other drugs, medicaments and biological substances; Z79.01 Long term (current) use of anticoagulants; Z79.4 Long term (current) use of insulin; Z79.899 Other long term (current) drug therapy
CPT/HCPCS: 36415; 36430; 80053; 82150; 83690; 85025; 85610; 85730; 86850; 86900; 86901; 86920; 86922; 96374; 96375; 99284; A9270; J1200; J1940; P9016

== ENCOUNTER 2019-04-16 10:20 | Emergency (ER) | payer MEDICARE, MEDICAID ==
[2019-04-16 10:28] VITALS: BP 112/53; PULSE 70
[2019-04-16] MEDS ORDERED: Oxymetazoline 0.05% Nasal Spray 15 ML Bottle NAS ONE (10:40)
--- NOTE | 2019-04-16 10:48 | EDM.PDOC ---
ED HPI GENERAL MEDICAL PROBLEM - General Chief Complaint: ENT Problem Stated Complaint: BLOODY NOSE Time Seen by Provider: 04/16/19 10:38 Source of Information: Reports: Patient History Limitations: Reports: No Limitations - History of Present Illness INITIAL COMMENTS - FREE TEXT/NARRATIVE: This 53 yo male patient reports to the ED with a bloody nose. The patient reports his bloody nose started this morning at about 0915 and has continued to bleed since that time. The patient has attempted direct pressure (tissues in each nostril and pressure to the bridge of his nose), but has continued to have bleeding. The patient is on Eliquis. The patient also reports his ears started hurting this morning. Onset: Today Onset Date: 04/16/19 Duration: Constant Location: Reports: Face Quality: Reports: Other Severity: Mild Improves with: Reports: None Worsens with: Reports: None Associated Symptoms: Reports: No Other Symptoms Ear Pain Score (Numeric/FACES): 6 - Related Data Allergies Allergy/AdvReac Type Severity Reaction Status Date / Time metformin AdvReac Nausea and Verified 04/16/19 10:28 Vomiting Home Meds: Home Meds Insulin Aspart [NovoLOG] 10 units SQ TID PRN 05/23/16 [History] Docusate Sodium [Colace] 100 mg PO BID PRN 06/28/16 [History] Albuterol/Ipratropium [DuoNeb 3.0-0.5 MG/3 ML] 3 ml INH QID PRN 11/08/18 [ History] Calcium Acetate [PhosLo] 2,668 mg PO TID 11/08/18 [History] Calcium Carbonate/Vitamin D3 [Calcium 500 + Vit D Caplet] 1 tab PO DAILY [History] Cholecalciferol (Vitamin D3) [Vitamin D3] 2,000 units PO DAILY 11/08/18 [History ] Lisinopril 20 mg PO DAILY 11/08/18 [History] Loratadine 10 mg PO DAILY PRN 11/08/18 [History] Metoprolol Tartrate 50 mg PO BID 11/08/18 [History] Multivitamin [Multiple Vitamins] 1 tab PO DAILY 11/08/18 [History] Omeprazole 40 mg PO DAILY 11/08/18 [History] Sertraline HCl 125 mg PO DAILY 11/08/18 [History] atorvaSTATin Calcium [Atorvastatin Calcium] 10 mg PO BEDTIME 11/08/18 [History] rOPINIRole HCl [Requip] 0.25 mg PO BEDTIME PRN 11/08/18 [History] Acetaminophen/HYDROcodone [[place] 325-5 MG] 1 tab PO DAILY 03/14/19 [History] Aspirin [Ecotrin EC] 325 mg PO DAILY 03/14/19 [History] Apixaban [Eliquis] 5 mg PO DAILY 04/16/19 [History] Past Medical History HEENT History: Reports: Impaired Vision Other HEENT History: wears glasses Cardiovascular History: Reports: Afib, High Cholesterol, Hypertension Respiratory History: Reports: Bronchitis, Recurrent, Sleep Apnea Gastrointestinal History: Reports: Chronic Constipation Genitourinary History: Reports: Dialysis, Renal Disease Other Genitourinary History: hemodialysis shunt in left upper arm with palpable bruit Musculoskeletal History: Reports: Fracture Neurological History: Reports: Neuropathy, Diabetic Psychiatric History: Reports: None Endocrine/Metabolic History: Reports: Diabetes, Type II, IDDM, Obesity/BMI 30+ Hematologic History: Reports: Anticoagulation Therapy Immunologic History: Reports: None Oncologic (Cancer) History: Reports: None Dermatologic History: Reports: Decubitus Ulcer - Infectious Disease History Infectious Disease History: Reports: None - Past Surgical History HEENT Surgical History: Reports: Oral Surgery Cardiovascular Surgical History: Reports: None Respiratory Surgical History: Reports: Thoracentesis GI Surgical History: Reports: None Male Surgical History: Reports: None Endocrine Surgical History: Reports: None Neurological Surgical History: Reports: None Musculoskeletal Surgical History: Reports: None Social & Family History - Family History Family Medical History: Noncontributory - Tobacco Use Smoking Status *Q: Never Smoker Second Hand Smoke Exposure: No - Caffeine Use Caffeine Use: Reports: Coffee - Recreational Drug Use Recreational Drug Use: No - Living Situation & Occupation Living situation: Reports: , with Family ED ROS ENT - Review of Systems Review Of Systems: Comprehensive ROS is negative, except as noted in HPI. ED EXAM, ENT - Physical Exam Exam: See Below Exam Limited By: No Limitations General Appearance: Alert, WD/WN, No Apparent Distress Eye Exam: Bilateral Eye: EOMI, Normal Inspection, PERRL Ears: Normal External Exam, Normal Canal, Hearing Grossly Normal, TM Erythema ( left) Nose: Active Bleeding (mild ) Mouth/Throat: Normal Inspection, Normal Gums, Normal Lips, Normal Oropharynx, Normal Teeth Head: Atraumatic, Normocephalic Neck: Normal Inspection, Supple, Non-Tender, Full Range of Motion Respiratory/Chest: No Respiratory Distress, Lungs Clear, Normal Breath Sounds, No Accessory Muscle Use, Chest Non-Tender Cardiovascular: Normal Peripheral Pulses, Regular Rate, Rhythm, No Edema, No Gallop, No JVD, No Murmur, No Rub GI/Abdominal: Normal Bowel Sounds, Soft, Non-Tender, No Organomegaly, No Distention, No Abnormal Bruit, No Mass (Male) Exam: Deferred Rectal (Males) Exam: Deferred Back: Normal Inspection, Full Range of Motion Extremities: Normal Inspection, Normal Range of Motion, Non-Tender, No Pedal Edema, Normal Capillary Refill Neurological: Alert, Oriented, CN II-XII Intact, Normal Cognition, Normal Gait, Normal Reflexes, No Motor/Sensory Deficits Psychiatric: Normal Affect, Normal Mood Skin: Warm, Dry, Intact, Normal Color, No Rash Lymphatic: No Adenopathy Course - Vital Signs Last Recorded V/S: Last Vital Signs Temp 36.3 C 04/16/19 10:24 Pulse 70 04/16/19 10:24 Resp 16 04/16/19 10:24 BP 112/53 L 04/16/19 10:24 Pulse Ox 97 04/16/19 10:24 - Orders/Labs/Meds Meds: Medications Discontinued Medications Generic Name Dose Route Start Last Admin Trade Name Freq PRN Reason Stop Dose Admin Oxymetazoline HCl 1 ml 04/16/19 10:40 04/16/19 10:45 Afrin Original 0.05% Nasal [place] VLAD 04/16/19 10:41 1 ml ONETIME ONE Administration - Re-Assessments/Exams Free Text/Narrative Re-Assessment/Exam: 04/16/19 11:07 After the initial spray of Afrin, the patient had a scant amount of bleeding from the left nostril. A second dose of Afrin was sprayed. Departure - Departure Time of Disposition: 11:23 Disposition: Home, Self-Care 01 Condition: Fair Clinical Impression: Epistaxis Otitis media Qualifiers: Otitis media type: serous Chronicity: acute Laterality: left Recurrence: non- recurrent Qualified Code(s): H65.02 - Acute serous otitis media, left ear - Discharge Information *PRESCRIPTION DRUG MONITORING PROGRAM REVIEWED*: Not Applicable *COPY OF PRESCRIPTION DRUG MONITORING REPORT IN PATIENT YANETH: Not Applicable Instructions: Otitis Media, Adult, [id number], Nosebleed, [id number] Forms: ED Department Discharge Care Plan Goals: The patient was advised of the examination results during the visit. The patient 's nostrils were sprayed with Afrin to reduce bleeding. The patient was encouraged to place a small amount of Aquaphor on a Q-tip and apply it to each nostril nightly. The patient was discharged with a script for Augmentin (500/125 ) to take 1 by mouth 2 times per day for 7 days. If the patient has any additional symptoms or concerns, the patient should either return to the emergency department or visit his primary care facility.
== END 2019-04-16 11:35 | disposition home or self-care (01) ==
LOC: DL.ED 10:20
DX: R04.0 Epistaxis (principal); H65.02 Acute serous otitis media, left ear; I48.91 Unspecified atrial fibrillation; E78.5 Hyperlipidemia, unspecified; I10 Essential (primary) hypertension; E11.40 Type 2 diabetes mellitus with diabetic neuropathy, unspecified; E66.9 Obesity, unspecified; Z68.31 Body mass index [BMI] 31.0-31.9, adult; Z88.8 Allergy status to other drugs, medicaments and biological substances; Z79.4 Long term (current) use of insulin; Z79.01 Long term (current) use of anticoagulants; Z79.82 Long term (current) use of aspirin; Z79.899 Other long term (current) drug therapy
CPT/HCPCS: 99283; A9270

== ENCOUNTER 2019-04-16 15:27 | Emergency (ER) | payer MEDICARE, MEDICAID ==
--- NOTE | 2019-04-16 16:02 | EDM.PDOC ---
ED HPI GENERAL MEDICAL PROBLEM - General Stated Complaint: BLOODY NOSE Time Seen by Provider: 04/16/19 15:55 Source of Information: Reports: Patient History Limitations: Reports: No Limitations - History of Present Illness INITIAL COMMENTS - FREE TEXT/NARRATIVE: This 53 yo male patient reports to the ED for the second time today due to a nosebleed. During the earlier visit, the patient was treated with Afrin which slowed the bleeding to infrequent drips. Since the patient has been home, the patient reports increased bleeding. The patient did call his thermite welder and was advised to come to the emergency department of further treatment. Onset: Today Duration: Constant Location: Reports: Face (nosebleed left nare) Severity: Moderate Improves with: Reports: None Worsens with: Reports: None Associated Symptoms: Reports: No Other Symptoms - Related Data Allergies Allergy/AdvReac Type Severity Reaction Status Date / Time metformin AdvReac Nausea and Verified 04/16/19 10:28 Vomiting Home Meds: Home Meds Insulin Aspart [NovoLOG] 10 units SQ TID PRN 05/23/16 [History] Docusate Sodium [Colace] 100 mg PO BID PRN 06/28/16 [History] Albuterol/Ipratropium [DuoNeb 3.0-0.5 MG/3 ML] 3 ml INH QID PRN 11/08/18 [ History] Calcium Acetate [PhosLo] 2,668 mg PO TID 11/08/18 [History] Calcium Carbonate/Vitamin D3 [Calcium 500 + Vit D Caplet] 1 tab PO DAILY [History] Cholecalciferol (Vitamin D3) [Vitamin D3] 2,000 units PO DAILY 11/08/18 [History ] Lisinopril 20 mg PO DAILY 11/08/18 [History] Loratadine 10 mg PO DAILY PRN 11/08/18 [History] Metoprolol Tartrate 50 mg PO BID 11/08/18 [History] Multivitamin [Multiple Vitamins] 1 tab PO DAILY 11/08/18 [History] Omeprazole 40 mg PO DAILY 11/08/18 [History] Sertraline HCl 125 mg PO DAILY 11/08/18 [History] atorvaSTATin Calcium [Atorvastatin Calcium] 10 mg PO BEDTIME 11/08/18 [History] rOPINIRole HCl [Requip] 0.25 mg PO BEDTIME PRN 11/08/18 [History] Acetaminophen/HYDROcodone [[place] 325-5 MG] 1 tab PO DAILY 03/14/19 [History] Aspirin [Ecotrin EC] 325 mg PO DAILY 03/14/19 [History] Apixaban [Eliquis] 5 mg PO DAILY 04/16/19 [History] Past Medical History HEENT History: Reports: Impaired Vision Other HEENT History: wears glasses Cardiovascular History: Reports: Afib, High Cholesterol, Hypertension Respiratory History: Reports: Bronchitis, Recurrent, Sleep Apnea Gastrointestinal History: Reports: Chronic Constipation Genitourinary History: Reports: Dialysis, Renal Disease Other Genitourinary History: hemodialysis shunt in left upper arm with palpable bruit Musculoskeletal History: Reports: Fracture Neurological History: Reports: Neuropathy, Diabetic Psychiatric History: Reports: None Endocrine/Metabolic History: Reports: Diabetes, Type II, IDDM, Obesity/BMI 30+ Hematologic History: Reports: Anticoagulation Therapy Immunologic History: Reports: None Oncologic (Cancer) History: Reports: None Dermatologic History: Reports: Decubitus Ulcer - Infectious Disease History Infectious Disease History: Reports: None - Past Surgical History HEENT Surgical History: Reports: Oral Surgery Cardiovascular Surgical History: Reports: None Respiratory Surgical History: Reports: Thoracentesis GI Surgical History: Reports: None Male Surgical History: Reports: None Endocrine Surgical History: Reports: None Neurological Surgical History: Reports: None Musculoskeletal Surgical History: Reports: None Social & Family History - Family History Family Medical History: Noncontributory - Caffeine Use Caffeine Use: Reports: Coffee - Living Situation & Occupation Living situation: Reports: , with Family ED ROS ENT - Review of Systems Review Of Systems: Comprehensive ROS is negative, except as noted in HPI. ED EXAM, ENT - Physical Exam Exam: See Below Exam Limited By: No Limitations General Appearance: Alert, WD/WN, Mild Distress Eye Exam: Bilateral Eye: EOMI, Normal Inspection, PERRL Ears: Normal External Exam, Normal Canal, Hearing Grossly Normal, TM Erythema ( left) Nose: Active Bleeding (left nare) Mouth/Throat: Normal Inspection, Normal Gums, Normal Lips, Normal Oropharynx, Normal Teeth Head: Atraumatic, Normocephalic Neck: Normal Inspection, Supple, Non-Tender, Full Range of Motion Respiratory/Chest: No Respiratory Distress, Lungs Clear, Normal Breath Sounds, No Accessory Muscle Use, Chest Non-Tender Cardiovascular: Normal Peripheral Pulses, Regular Rate, Rhythm, No Edema, No Gallop, No JVD, No Murmur, No Rub GI/Abdominal: Normal Bowel Sounds, Soft, Non-Tender, No Organomegaly, No Distention, No Abnormal Bruit, No Mass (Male) Exam: Deferred Rectal (Males) Exam: Deferred Back: Normal Inspection, Full Range of Motion Extremities: Normal Inspection, Normal Range of Motion, Non-Tender, No Pedal Edema, Normal Capillary Refill Neurological: Alert, Oriented, CN II-XII Intact, Normal Cognition, Normal Gait, Normal Reflexes, No Motor/Sensory Deficits Psychiatric: Normal Affect, Normal Mood Skin: Warm, Dry, Intact, Normal Color, No Rash Lymphatic: No Adenopathy ED ENT PROCEDURES - Epistaxis Procedure Indication: Epistaxis, Uncontrolled Recent anticoagulants/antiplatlets: Yes Uncontrolled HTN: No Recent septal/nasal surgery: No Site of bleeding: Left Nare Clearing of clots: Patient Blew Nose Topical Meds: Phenylephrine Ice pack to area: No Chemical cautery: Other (TXA) Posterior packing: Long Inflatable Nasal Tampon Post cautery: Other Complications: No Course - Vital Signs Last Recorded V/S: Last Vital Signs Temp 36.2 C 04/16/19 16:30 Pulse 63 04/16/19 16:30 Resp 16 04/16/19 16:30 BP 149/83 H 04/16/19 16:30 Pulse Ox 100 04/16/19 16:30 - Orders/Labs/Meds Meds: Medications Discontinued Medications Generic Name Dose Route Start Last Admin Trade Name Freq PRN Reason Stop Dose Admin Tranexamic Acid 1,000 mg 04/16/19 15:55 04/16/19 16:10 Cyklokapron TOP 04/16/19 15:56 1,000 mg ONETIME ONE Administration Departure - Departure Time of Disposition: 16:40 Disposition: Home, Self-Care 01 Condition: Fair Clinical Impression: Epistaxis - Discharge Information *PRESCRIPTION DRUG MONITORING PROGRAM REVIEWED*: Not Applicable *COPY OF PRESCRIPTION DRUG MONITORING REPORT IN PATIENT YANETH: Not Applicable Instructions: Nosebleed, [id number] Forms: ED Department Discharge Care Plan Goals: The patient was advised of the examination results during the visit. A Rhino Rocket was placed in the patient's left nare. Prior to insertion, TXA was applied to the device due to the patient being on Eloquis. The patient should follow-up with his primary care facility in 2-3 days for removal of the Rhino Rocket. If the patient has any additional symptoms or concerns, the patient should either visit his primary care facility or return to the emergency department.
[2019-04-16 16:31] VITALS: BP 149/83; PULSE 63
== END 2019-04-16 16:55 | disposition home or self-care (01) ==
LOC: DL.ED 15:27
DX: R04.0 Epistaxis (principal); I48.91 Unspecified atrial fibrillation; I10 Essential (primary) hypertension; E78.5 Hyperlipidemia, unspecified; E11.40 Type 2 diabetes mellitus with diabetic neuropathy, unspecified; E66.9 Obesity, unspecified; Z68.30 Body mass index [BMI] 30.0-30.9, adult; Z88.8 Allergy status to other drugs, medicaments and biological substances; Z79.01 Long term (current) use of anticoagulants; Z79.4 Long term (current) use of insulin; Z79.899 Other long term (current) drug therapy
CPT/HCPCS: 30903; 30905; 99283-25

== ENCOUNTER 2019-04-18 10:32 | Emergency (ER) | payer MEDICARE, MEDICAID ==
[2019-04-18 10:47] VITALS: BP 140/84; PULSE 83
--- NOTE | 2019-04-18 10:49 | EDM.PDOC ---
ED HPI GENERAL MEDICAL PROBLEM - General Stated Complaint: PULL OUT NOSE BLEED DEVICE Time Seen by Provider: 04/18/19 10:35 Source of Information: Reports: Patient History Limitations: Reports: No Limitations - History of Present Illness INITIAL COMMENTS - FREE TEXT/NARRATIVE: This 53 yo male patient was sent to the ED by a provider at the [facility] to have his nasal rocket removed. The patient had a bloody nose on Tuesday leading to the device being placed with TXA on it to stop the bleeding. The patient reports scant clear drainage since Tuesday. Onset: Other Location: Reports: Face Quality: Reports: Other Severity: Mild Improves with: Reports: None Worsens with: Reports: None Context: Reports: Other - Related Data Allergies Allergy/AdvReac Type Severity Reaction Status Date / Time metformin AdvReac Nausea and Verified 04/18/19 10:47 Vomiting Home Meds: Home Meds Insulin Aspart [NovoLOG] 10 units SQ TID PRN 05/23/16 [History] Docusate Sodium [Colace] 100 mg PO BID PRN 06/28/16 [History] Albuterol/Ipratropium [DuoNeb 3.0-0.5 MG/3 ML] 3 ml INH QID PRN 11/08/18 [ History] Calcium Acetate [PhosLo] 2,668 mg PO TID 11/08/18 [History] Calcium Carbonate/Vitamin D3 [Calcium 500 + Vit D Caplet] 1 tab PO DAILY [History] Cholecalciferol (Vitamin D3) [Vitamin D3] 2,000 units PO DAILY 11/08/18 [History ] Lisinopril 20 mg PO DAILY 11/08/18 [History] Loratadine 10 mg PO DAILY PRN 11/08/18 [History] Metoprolol Tartrate 50 mg PO BID 11/08/18 [History] Multivitamin [Multiple Vitamins] 1 tab PO DAILY 11/08/18 [History] Omeprazole 40 mg PO DAILY 11/08/18 [History] Sertraline HCl 125 mg PO DAILY 11/08/18 [History] atorvaSTATin Calcium [Atorvastatin Calcium] 10 mg PO BEDTIME 11/08/18 [History] rOPINIRole HCl [Requip] 0.25 mg PO BEDTIME PRN 11/08/18 [History] Acetaminophen/HYDROcodone [[place] 325-5 MG] 1 tab PO DAILY 03/14/19 [History] Aspirin [Ecotrin EC] 325 mg PO DAILY 03/14/19 [History] Apixaban [Eliquis] 5 mg PO DAILY 04/16/19 [History] Past Medical History HEENT History: Reports: Impaired Vision Other HEENT History: wears glasses Cardiovascular History: Reports: Afib, High Cholesterol, Hypertension Respiratory History: Reports: Bronchitis, Recurrent, Sleep Apnea Gastrointestinal History: Reports: Chronic Constipation Genitourinary History: Reports: Dialysis, Renal Disease Other Genitourinary History: hemodialysis shunt in left upper arm with palpable bruit Musculoskeletal History: Reports: Fracture Neurological History: Reports: Neuropathy, Diabetic Psychiatric History: Reports: None Endocrine/Metabolic History: Reports: Diabetes, Type II, IDDM, Obesity/BMI 30+ Hematologic History: Reports: Anticoagulation Therapy Immunologic History: Reports: None Oncologic (Cancer) History: Reports: None Dermatologic History: Reports: Decubitus Ulcer - Infectious Disease History Infectious Disease History: Reports: None - Past Surgical History HEENT Surgical History: Reports: Oral Surgery Cardiovascular Surgical History: Reports: None Respiratory Surgical History: Reports: Thoracentesis GI Surgical History: Reports: None Male Surgical History: Reports: None Endocrine Surgical History: Reports: None Neurological Surgical History: Reports: None Musculoskeletal Surgical History: Reports: None Social & Family History - Family History Family Medical History: Noncontributory - Caffeine Use Caffeine Use: Reports: Coffee - Living Situation & Occupation Living situation: Reports: , with Family ED ROS ENT - Review of Systems Review Of Systems: Comprehensive ROS is negative, except as noted in HPI. ED EXAM, ENT - Physical Exam Exam: See Below Exam Limited By: No Limitations General Appearance: Alert, WD/WN, No Apparent Distress Eye Exam: Bilateral Eye: EOMI, Normal Inspection Ears: Hearing Grossly Normal Nose: Other (The patient reported to the ED with a Rhino Rocket in place in his left nostril with no bleeding. The Rhino Rocket was removed without incident with no evidence of bleeding after removal. ) Mouth/Throat: Normal Inspection, Normal Lips Head: Atraumatic, Normocephalic Respiratory/Chest: No Respiratory Distress, Lungs Clear, Normal Breath Sounds Cardiovascular: Normal Peripheral Pulses, Regular Rate, Rhythm (Male) Exam: Deferred Rectal (Males) Exam: Deferred Back: Normal Inspection, Full Range of Motion Extremities: Normal Inspection, Normal Range of Motion, Non-Tender, No Pedal Edema, Normal Capillary Refill Neurological: Alert, Oriented, CN II-XII Intact, Normal Cognition, Normal Gait, Normal Reflexes, No Motor/Sensory Deficits Psychiatric: Normal Affect, Normal Mood Skin: Warm, Dry, Intact, Normal Color, No Rash Lymphatic: No Adenopathy Departure - Departure Time of Disposition: 10:50 Disposition: Home, Self-Care 01 Condition: Good Clinical Impression: Encounter for removal of nasal packing - Discharge Information *PRESCRIPTION DRUG MONITORING PROGRAM REVIEWED*: Not Applicable *COPY OF PRESCRIPTION DRUG MONITORING REPORT IN PATIENT YANETH: Not Applicable Forms: ED Department Discharge Care Plan Goals: The patient was advised of the examination results during the visit. The patient was encouraged to avoid blowing nose. The patient should place some Aquaphor into each nostril before bed. If the patient has any additional symptoms or concerns, the patient should either return to the emergency department or visit his primary care facility.
== END 2019-04-18 11:06 | disposition home or self-care (01) ==
LOC: DL.ED 10:32
DX: Z48.00 Encounter for change or removal of nonsurgical wound dressing (principal); I48.91 Unspecified atrial fibrillation; E78.00 Pure hypercholesterolemia, unspecified; I10 Essential (primary) hypertension; E66.9 Obesity, unspecified; E11.40 Type 2 diabetes mellitus with diabetic neuropathy, unspecified; Z88.8 Allergy status to other drugs, medicaments and biological substances; Z79.899 Other long term (current) drug therapy; Z79.4 Long term (current) use of insulin; Z79.82 Long term (current) use of aspirin; Z68.30 Body mass index [BMI] 30.0-30.9, adult
CPT/HCPCS: 99282

== ENCOUNTER 2019-05-01 18:20 | Emergency (ER) | payer MEDICARE, MEDICAID ==
[2019-05-01] MEDS ORDERED: Acetaminophen 325 MG Tab PO ONE (20:27)
[2019-05-01] MEDS ORDERED: diphenhydrAMINE 25 MG Tab PO ONE (20:27)
--- NOTE | 2019-05-01 20:32 | EDM.PDOC ---
ED HPI GENERAL MEDICAL PROBLEM - General Chief Complaint: General Stated Complaint: NOT FEELIGN WELL NEEDS HEMIGLOBEN CHECKED PER PT Time Seen by Provider: 05/01/19 19:00 Source of Information: Reports: Patient, RN History Limitations: Reports: No Limitations - History of Present Illness INITIAL COMMENTS - FREE TEXT/NARRATIVE: ED with c/o not feeling well, tired, run down, low back pain per usual with low blood. transfused only one unit last week and had nose bleed. Wants to know what blood count is today. Dialysis done to Middle Back Pain Score (Numeric/FACES): 7 - Related Data Allergies Allergy/AdvReac Type Severity Reaction Status Date / Time metformin AdvReac Nausea and Verified 04/18/19 17:20 Vomiting Home Meds: Home Meds Insulin Aspart [NovoLOG] 10 units SQ TID PRN 05/23/16 [History] Docusate Sodium [Colace] 100 mg PO BID PRN 06/28/16 [History] Albuterol/Ipratropium [DuoNeb 3.0-0.5 MG/3 ML] 3 ml INH QID PRN 11/08/18 [ History] Calcium Acetate [PhosLo] 2,668 mg PO TID 11/08/18 [History] Calcium Carbonate/Vitamin D3 [Calcium 500 + Vit D Caplet] 1 tab PO DAILY [History] Cholecalciferol (Vitamin D3) [Vitamin D3] 2,000 units PO DAILY 11/08/18 [History ] Lisinopril 20 mg PO DAILY 11/08/18 [History] Loratadine 10 mg PO DAILY PRN 11/08/18 [History] Metoprolol Tartrate 50 mg PO BID 11/08/18 [History] Multivitamin [Multiple Vitamins] 1 tab PO DAILY 11/08/18 [History] Omeprazole 40 mg PO DAILY 11/08/18 [History] Sertraline HCl 125 mg PO DAILY 11/08/18 [History] atorvaSTATin Calcium [Atorvastatin Calcium] 10 mg PO BEDTIME 11/08/18 [History] rOPINIRole HCl [Requip] 0.25 mg PO BEDTIME PRN 11/08/18 [History] Acetaminophen/HYDROcodone [[place] 325-5 MG] 1 tab PO DAILY 03/14/19 [History] Aspirin [Ecotrin EC] 325 mg PO DAILY 03/14/19 [History] Apixaban [Eliquis] 5 mg PO DAILY 04/16/19 [History] Past Medical History HEENT History: Reports: Impaired Vision Other HEENT History: wears glasses Cardiovascular History: Reports: Afib, High Cholesterol, Hypertension Respiratory History: Reports: Bronchitis, Recurrent, Sleep Apnea Gastrointestinal History: Reports: Chronic Constipation Genitourinary History: Reports: Dialysis, Renal Disease Other Genitourinary History: hemodialysis shunt in left upper arm with palpable bruit Musculoskeletal History: Reports: Arthritis, Back Pain, Chronic, Fracture Neurological History: Reports: Neuropathy, Diabetic Psychiatric History: Reports: None Endocrine/Metabolic History: Reports: Diabetes, Type II, IDDM, Obesity/BMI 30+ Hematologic History: Reports: Anemia, Anticoagulation Therapy, Blood Transfusion (s) Immunologic History: Reports: None Oncologic (Cancer) History: Reports: None Dermatologic History: Reports: Decubitus Ulcer - Infectious Disease History Infectious Disease History: Reports: Chicken Pox - Past Surgical History Head Surgeries/Procedures: Reports: None HEENT Surgical History: Reports: Oral Surgery Cardiovascular Surgical History: Reports: None Respiratory Surgical History: Reports: Thoracentesis GI Surgical History: Reports: Colonoscopy Male Surgical History: Reports: None Endocrine Surgical History: Reports: None Neurological Surgical History: Reports: None Musculoskeletal Surgical History: Reports: None Oncologic Surgical History: Reports: None Social & Family History - Family History Family Medical History: Noncontributory - Tobacco Use Smoking Status *Q: Former Smoker Used Tobacco, but Quit: Yes Month/Year Tobacco Last Used: 1983 Second Hand Smoke Exposure: No - Caffeine Use Caffeine Use: Reports: Coffee, Tea - Recreational Drug Use Recreational Drug Use: No - Living Situation & Occupation Living situation: Reports: , with Family ED ROS GENERAL - Review of Systems Review Of Systems: See Below Constitutional: Reports: Malaise HEENT: Reports: No Symptoms Respiratory: Reports: Shortness of Breath (no change). Denies: Cough Cardiovascular: Reports: Dyspnea on Exertion (chronic), Lightheadedness. Denies : Edema GI/Abdominal: Reports: Hematochezia, Melena. Denies: Abdominal Pain, Hematemesis, Nausea Musculoskeletal: Reports: Back Pain (chronic worse when counts are low, lumbar) Skin: Reports: No Symptoms Neurological: Reports: No Symptoms Psychiatric: Reports: No Symptoms ED EXAM, GENERAL - Physical Exam Exam: See Below Exam Limited By: No Limitations General Appearance: Alert, No Apparent Distress, Obese Eye Exam: Bilateral Eye: EOMI Ears: Normal External Exam Nose: Normal Inspection. No: Nasal Drainage Throat/Mouth: Normal Inspection, Normal Lips, Normal Voice Head: Atraumatic, Normocephalic Neck: Normal Inspection, Full Range of Motion Respiratory/Chest: No Respiratory Distress, Lungs Clear, Normal Breath Sounds Cardiovascular: Normal Peripheral Pulses, No Edema, Irregularly Irregular GI/Abdominal: Normal Bowel Sounds, Soft Rectal (Males) Exam: Heme - Stool Back Exam: Full Range of Motion, Paraspinal Tenderness Extremities: Normal Inspection Neurological: Alert, Oriented, Normal Cognition Psychiatric: Normal Affect, Normal Mood Skin Exam: Warm, Dry, Intact, Pallor Course - Vital Signs Last Recorded V/S: Last Vital Signs Temp 99 F 05/01/19 20:41 Pulse 89 05/01/19 20:41 Resp 18 05/01/19 20:41 BP 129/86 05/01/19 20:41 Pulse Ox 100 05/01/19 18:28 - Orders/Labs/Meds Orders: Active Orders 24 hr Category Date Time Status RED BLOOD CELLS LP [BBK] Stat Lab 05/01/19 19:18 Results TYPE AND SCREEN [BBK] Stat Lab 05/01/19 19:18 Results Labs: Laboratory Tests 05/01/19 05/01/19 05/01/19 Range/Units 19:18 19:18 19:18 WBC 4.7 L (5.0-10.0) 10^3/uL RBC 1.64 L (4.6-6.2) 10^6/uL Hgb 4.7 L* (14.0-18.0) g/dL Hct 16.1 L* (40.0-54.0) % MCV 98.2 D (80-100) fL MCH 28.7 (27.0-34.0) pg MCHC 29.2 L (33.0-35.0) g/dL Plt Count 167 (150-450) 10^3/uL Neut % (Auto) 66.8 (42.2-75.2) % Lymph % (Auto) 14.6 L (20.5-50.1) % Kings % (Auto) 11.1 H (2-8) % Eos % (Auto) 6.6 H (1.0-3.0) % Baso % (Auto) 0.9 (0.0-1.0) % PT 11.5 D (9.0-12.0) SEC INR 1.1 (0.9-1.2) Sodium 138 (135-145) mmol/L Potassium 3.0 L (3.6-5.0) mmol/L Chloride 96 L (101-111) mmol/L Carbon Dioxide 32.0 H (21.0-31.0) mmol/L Anion Gap 13.0 BUN 28 H D (7-18) mg/dL Creatinine 5.4 H D (0.6-1.3) mg/dL Est Cr Clr Drug Dosing 19.34 mL/min Estimated GFR (MDRD) 11 BUN/Creatinine Ratio 5.18 Glucose 92 (74-105) mg/dL Calcium 8.9 (8.4-10.2) mg/dl Total Bilirubin 0.7 (0.2-1.0) mg/dL AST 23 (10-42) IU/L ALT 12 (10-60) IU/L Alkaline Phosphatase 66 (42-121) IU/L Troponin I 0.03 H* (0.00-0.02) ng/ml B-Natriuretic Peptide 1010 H (0-100) pg/ml Total Protein 6.0 L (6.7-8.2) g/dl Albumin 3.1 L (3.2-5.5) g/dl Globulin 2.9 Albumin/Globulin Ratio 1.07 Blood Type Gel Antibody Screen Crossmatch 05/01/19 Range/Units 19:18 WBC (5.0-10.0) 10^3/uL RBC (4.6-6.2) 10^6/uL Hgb (14.0-18.0) g/dL Hct (40.0-54.0) % MCV (80-100) fL MCH (27.0-34.0) pg MCHC (33.0-35.0) g/dL Plt Count (150-450) 10^3/uL Neut % (Auto) (42.2-75.2) % Lymph % (Auto) (20.5-50.1) % Kings % (Auto) (2-8) % Eos % (Auto) (1.0-3.0) % Baso % (Auto) (0.0-1.0) % PT (9.0-12.0) SEC INR (0.9-1.2) Sodium (135-145) mmol/L Potassium (3.6-5.0) mmol/L Chloride (101-111) mmol/L Carbon Dioxide (21.0-31.0) mmol/L Anion Gap BUN (7-18) mg/dL Creatinine (0.6-1.3) mg/dL Est Cr Clr Drug Dosing mL/min Estimated GFR (MDRD) BUN/Creatinine Ratio Glucose (74-105) mg/dL Calcium (8.4-10.2) mg/dl Total Bilirubin (0.2-1.0) mg/dL AST (10-42) IU/L ALT (10-60) IU/L Alkaline Phosphatase (42-121) IU/L Troponin I (0.00-0.02) ng/ml B-Natriuretic Peptide (0-100) pg/ml Total Protein (6.7-8.2) g/dl Albumin (3.2-5.5) g/dl Globulin Albumin/Globulin Ratio Blood Type O POSITIVE Gel Antibody Screen Negative Crossmatch See Detail Meds: Medications Discontinued Medications Generic Name Dose Route Start Last Admin Trade Name Freq PRN Reason Stop Dose Admin Acetaminophen 650 mg 05/01/19 20:27 05/01/19 20:31 Tylenol PO 05/01/19 20:28 650 mg NOW ONE Administration Diphenhydramine HCl 25 mg 05/01/19 20:27 05/01/19 20:31 Benadryl PO 05/01/19 20:28 25 mg ONETIME ONE Administration - Re-Assessments/Exams Free Text/Narrative Re-Assessment/Exam: 05/01/19 20:40 Tx Alt[facility] via [facility]AS Departure - Departure Time of Disposition: 21:05 Disposition: DC/Tfer to Acute Hospital 02 Condition: Good Clinical Impression: Hypokalemia, Chronic kidney disease with end stage renal failure on dialysis Anemia Qualifiers: Anemia type: due to chronic kidney disease Chronic kidney disease stage: on chronic dialysis Qualified Code(s): N18.6 - End stage renal disease - Discharge Information *PRESCRIPTION DRUG MONITORING PROGRAM REVIEWED*: No *COPY OF PRESCRIPTION DRUG MONITORING REPORT IN PATIENT YANETH: No Forms: ED Department Discharge Sepsis Event Note - Evaluation Sepsis Screening Result: No Definite Risk - Focused Exam Vital Signs: Vital Signs Temp Temp Pulse Resp BP Pulse Ox 05/01/19 20:41 99 F 89 18 129/86 05/01/19 20:30 99.8 F 83 18 115/65 05/01/19 20:26 99.5 F 84 18 122/66 05/01/19 18:28 98.4 F 88 20 109/53 L 100 Date Exam was Performed: 05/02/19 Time Exam was Performed: 02:03 - My Orders Last 24 Hours: My Active Orders 05/01/19 19:18 RED BLOOD CELLS LP [BBK] Stat TYPE AND SCREEN [BBK] Stat - Assessment/Plan Last 24 Hours: My Active Orders 05/01/19 19:18 RED BLOOD CELLS LP [BBK] Stat TYPE AND SCREEN [BBK] Stat
[2019-05-01 20:46] VITALS: BP 129/86; PULSE 89
== END 2019-05-01 20:55 ==
LOC: DL.ED 18:20
DX: E87.6 Hypokalemia (principal); I12.0 Hypertensive chronic kidney disease with stage 5 chronic kidney disease or end stage renal disease; E11.22 Type 2 diabetes mellitus with diabetic chronic kidney disease; N18.6 End stage renal disease; D63.1 Anemia in chronic kidney disease; Z99.2 Dependence on renal dialysis; I48.91 Unspecified atrial fibrillation; E78.00 Pure hypercholesterolemia, unspecified; M19.90 Unspecified osteoarthritis, unspecified site; E11.40 Type 2 diabetes mellitus with diabetic neuropathy, unspecified; E66.9 Obesity, unspecified; Z68.29 Body mass index [BMI] 29.0-29.9, adult; Z87.891 Personal history of nicotine dependence; Z79.01 Long term (current) use of anticoagulants; Z79.82 Long term (current) use of aspirin; Z79.899 Other long term (current) drug therapy; Z79.4 Long term (current) use of insulin; Z88.8 Allergy status to other drugs, medicaments and biological substances
CPT/HCPCS: 36415; 36430; 80053; 82272; 83880; 84484; 85025; 85610; 86850; 86900; 86901; 86920; 86922; 99284; A9270; P9016

== ENCOUNTER 2019-10-07 00:14 | Emergency (ER) | payer MEDICARE, MEDICAID ==
[2019-10-07 00:24] VITALS: BP 166/82; PULSE 86
[2019-10-07] MEDS ORDERED: Acetaminophen/HYDROcodone 325-10 MG Tab PO ONE (00:27)
--- NOTE | 2019-10-07 00:32 | EDM.PDOC ---
ED HPI GENERAL MEDICAL PROBLEM - General Chief Complaint: Back Pain or Injury Stated Complaint: BACK PAIN Time Seen by Provider: 10/07/19 00:28 Source of Information: Reports: Patient History Limitations: Reports: No Limitations - History of Present Illness INITIAL COMMENTS - FREE TEXT/NARRATIVE: c/o exac LBP been taking Rx but out past 4 days and unable to see clinic till Tuesday due to covid scheduling. not slept past 4 nights and has flexeril but not helping much at all. Right Back Pain Score (Numeric/FACES): 7 - Related Data Allergies Allergy/AdvReac Type Severity Reaction Status Date / Time metformin AdvReac Nausea and Verified 10/07/19 00:18 Vomiting Home Meds: Home Meds Insulin Aspart [NovoLOG] 10 units SQ TID PRN 05/23/16 [History] Docusate Sodium [Colace] 100 mg PO BID PRN 06/28/16 [History] Albuterol/Ipratropium [DuoNeb 3.0-0.5 MG/3 ML] 3 ml INH QID PRN 11/08/18 [ History] Calcium Acetate [PhosLo] 2,668 mg PO TID 11/08/18 [History] Calcium Carbonate/Vitamin D3 [Calcium 500 + Vit D Caplet] 1 tab PO DAILY [History] Cholecalciferol (Vitamin D3) [Vitamin D3] 2,000 units PO DAILY 11/08/18 [History ] Lisinopril 20 mg PO DAILY 11/08/18 [History] Loratadine 10 mg PO DAILY PRN 11/08/18 [History] Metoprolol Tartrate 50 mg PO BID 11/08/18 [History] Multivitamin [Multiple Vitamins] 1 tab PO DAILY 11/08/18 [History] Omeprazole 40 mg PO DAILY 11/08/18 [History] Sertraline HCl 125 mg PO DAILY 11/08/18 [History] atorvaSTATin Calcium [Atorvastatin Calcium] 10 mg PO BEDTIME 11/08/18 [History] rOPINIRole HCl [Requip] 0.25 mg PO BEDTIME PRN 11/08/18 [History] Acetaminophen/HYDROcodone [[place] 325-5 MG] 1 tab PO DAILY 03/14/19 [History] Aspirin [Ecotrin EC] 325 mg PO DAILY 03/14/19 [History] Apixaban [Eliquis] 5 mg PO DAILY 04/16/19 [History] Past Medical History HEENT History: Reports: Impaired Vision Other HEENT History: wears glasses Cardiovascular History: Reports: Afib, High Cholesterol, Hypertension Respiratory History: Reports: Bronchitis, Recurrent, Sleep Apnea Gastrointestinal History: Reports: Chronic Constipation Genitourinary History: Reports: Dialysis, Renal Disease Other Genitourinary History: hemodialysis shunt in left upper arm with palpable bruit Musculoskeletal History: Reports: Arthritis, Back Pain, Chronic, Fracture Neurological History: Reports: Neuropathy, Diabetic Psychiatric History: Reports: None Endocrine/Metabolic History: Reports: Diabetes, Type II, IDDM, Obesity/BMI 30+ Hematologic History: Reports: Anemia, Anticoagulation Therapy, Blood Transfusion (s) Immunologic History: Reports: None Oncologic (Cancer) History: Reports: None Dermatologic History: Reports: Decubitus Ulcer - Infectious Disease History Infectious Disease History: Reports: Chicken Pox - Past Surgical History Head Surgeries/Procedures: Reports: None HEENT Surgical History: Reports: Oral Surgery Cardiovascular Surgical History: Reports: None Respiratory Surgical History: Reports: Thoracentesis GI Surgical History: Reports: Colonoscopy Male Surgical History: Reports: None Endocrine Surgical History: Reports: None Neurological Surgical History: Reports: None Musculoskeletal Surgical History: Reports: None Oncologic Surgical History: Reports: None Social & Family History - Family History Family Medical History: Noncontributory - Tobacco Use Smoking Status *Q: Never Smoker - Caffeine Use Caffeine Use: Reports: Coffee, Tea - Recreational Drug Use Recreational Drug Use: No - Living Situation & Occupation Living situation: Reports: , with Family ED ROS GENERAL - Review of Systems Review Of Systems: Comprehensive ROS is negative, except as noted in HPI. ED EXAM,LOWER BACK PAIN/INJURY - Physical Exam Exam: See Below Exam Limited By: No Limitations General Appearance: Alert, WD/WN, No Apparent Distress, Mild Distress, Moderate Distress, Other (LBP) Ears: Hearing Grossly Normal Throat/Mouth: Normal Voice, No Airway Compromise Head: Atraumatic Neck: Non-Tender, Full Range of Motion Respiratory/Chest: No Respiratory Distress Cardiovascular: Regular Rate, Rhythm GI/Abdominal: Soft, Non-Tender Back Exam: Muscle Spasm, Paraspinal Tenderness, Other (LS paravert spasms, ) Neurological: Alert, No Motor/Sensory Deficits, Oriented x 3, Other (gailt limited to pain) Psychiatric: Tearful Skin Exam: Warm, Dry, Normal Color Lymphatic: No Adenopathy Course - Vital Signs Last Recorded V/S: Last Vital Signs Temp 36.6 C 10/07/19 00:18 Pulse 86 10/07/19 00:18 Resp 16 10/07/19 00:18 BP 166/82 H 10/07/19 00:18 Pulse Ox 100 10/07/19 00:18 - Orders/Labs/Meds Orders: Active Orders 24 hr Category Date Time Status Acetaminophen/HYDROcodone [[place] 325-10 MG] Med 10/07/19 00:27 Once 1 tab PO ONETIME ONE Medication Orders Hydrocodone Bitart/Acetaminophen ([place] 325-10 Mg) 1 tab PO ONETIME ONE Stop: 10/07/19 00:28 Meds: Medications Generic Name Dose Route Start Last Admin Trade Name Cristhianq PRN Reason Stop Dose Admin Hydrocodone Bitart/Acetaminophen 1 tab 10/07/19 00:27 [place] 325-10 Mg PO 10/07/19 00:28 ONETIME ONE Departure - Departure Time of Disposition: 00:30 Disposition: Home, Self-Care 01 Condition: Good Clinical Impression: Lumbar radicular pain - Discharge Information Additional Instructions: 1) avoid bending lifting straining 2) try ice or heat to sore areas 3) follow up at clinic Sepsis Event Note - Evaluation Sepsis Screening Result: No Definite Risk - Focused Exam Vital Signs: Vital Signs Temp Pulse Resp BP Pulse Ox 10/07/19 00:18 36.6 C 86 16 166/82 H 100 Date Exam was Performed: 10/07/19 Time Exam was Performed: 00:27 - My Orders Last 24 Hours: My Active Orders 10/07/19 00:27 Acetaminophen/HYDROcodone [[place] 325-10 MG] 1 tab PO ONETIME ONE - Assessment/Plan Last 24 Hours: My Active Orders 10/07/19 00:27 Acetaminophen/HYDROcodone [[place] 325-10 MG] 1 tab PO ONETIME ONE
== END 2019-10-07 00:35 | disposition home or self-care (01) ==
LOC: DL.ED 00:14
DX: M54.16 Radiculopathy, lumbar region (principal); I10 Essential (primary) hypertension; I48.91 Unspecified atrial fibrillation; E11.40 Type 2 diabetes mellitus with diabetic neuropathy, unspecified; E78.00 Pure hypercholesterolemia, unspecified; M19.90 Unspecified osteoarthritis, unspecified site; E66.9 Obesity, unspecified; Z68.30 Body mass index [BMI] 30.0-30.9, adult; Z88.8 Allergy status to other drugs, medicaments and biological substances; Z79.4 Long term (current) use of insulin; Z79.82 Long term (current) use of aspirin; Z79.01 Long term (current) use of anticoagulants; Z79.899 Other long term (current) drug therapy
CPT/HCPCS: 99283; A9270

== ENCOUNTER 2019-10-23 21:29 | Emergency (ER) | payer MEDICARE, MEDICAID ==
[2019-10-23 21:37] VITALS: BP 160/77; PULSE 88
[2019-10-23] MEDS ORDERED: LORazepam 1 MG Tab PO ONE (21:56)
--- NOTE | 2019-10-23 21:57 | EDM.PDOCBH ---
ED HPI GENERAL MEDICAL PROBLEM - General Chief Complaint: Behavioral/Psych Stated Complaint: anxiety attack Time Seen by Provider: 10/23/19 21:45 Source of Information: Reports: Patient, RN, RN Notes Reviewed History Limitations: Reports: No Limitations - History of Present Illness INITIAL COMMENTS - FREE TEXT/NARRATIVE: Patient presents to ER with complaint of anxiety and panic attack. Patient states he has been having panic attacks on and off for the past week. Patient states when he tries to lay down and go to bed it feels as though the room is closing in on him and he becomes short of breath. Patient then gets up and goes outside, which makes him feel somewhat better. Patient denies chest pains , nausea or vomiting, diarrhea, fever or chills. Patient states he will be seeing mental health at [facility] tomorrow. Onset: Today, Sudden - Related Data Allergies Allergy/AdvReac Type Severity Reaction Status Date / Time metformin AdvReac Nausea and Verified 10/23/19 21:33 Vomiting Home Meds: Home Meds Insulin Aspart [NovoLOG] 10 units SQ TID PRN 05/23/16 [History] Docusate Sodium [Colace] 100 mg PO BID PRN 06/28/16 [History] Albuterol/Ipratropium [DuoNeb 3.0-0.5 MG/3 ML] 3 ml INH QID PRN 11/08/18 [ History] Calcium Acetate [PhosLo] 2,668 mg PO TID 11/08/18 [History] Calcium Carbonate/Vitamin D3 [Calcium 500 + Vit D Caplet] 1 tab PO DAILY [History] Cholecalciferol (Vitamin D3) [Vitamin D3] 2,000 units PO DAILY 11/08/18 [History ] Lisinopril 20 mg PO DAILY 11/08/18 [History] Loratadine 10 mg PO DAILY PRN 11/08/18 [History] Metoprolol Tartrate 50 mg PO BID 11/08/18 [History] Multivitamin [Multiple Vitamins] 1 tab PO DAILY 11/08/18 [History] Omeprazole 40 mg PO DAILY 11/08/18 [History] Sertraline HCl 125 mg PO DAILY 11/08/18 [History] atorvaSTATin Calcium [Atorvastatin Calcium] 10 mg PO BEDTIME 11/08/18 [History] rOPINIRole HCl [Requip] 0.25 mg PO BEDTIME PRN 11/08/18 [History] Acetaminophen/HYDROcodone [[place] 325-5 MG] 1 tab PO DAILY 03/14/19 [History] Aspirin [Ecotrin EC] 325 mg PO DAILY 03/14/19 [History] Apixaban [Eliquis] 5 mg PO DAILY 04/16/19 [History] Past Medical History HEENT History: Reports: Impaired Vision Other HEENT History: wears glasses Cardiovascular History: Reports: Afib, High Cholesterol, Hypertension Respiratory History: Reports: Bronchitis, Recurrent, Sleep Apnea Gastrointestinal History: Reports: Chronic Constipation Genitourinary History: Reports: Dialysis, Renal Disease Other Genitourinary History: hemodialysis shunt in left upper arm with palpable bruit Musculoskeletal History: Reports: Arthritis, Back Pain, Chronic, Fracture Neurological History: Reports: Neuropathy, Diabetic Psychiatric History: Reports: None Endocrine/Metabolic History: Reports: Diabetes, Type II, IDDM, Obesity/BMI 30+ Hematologic History: Reports: Anemia, Anticoagulation Therapy, Blood Transfusion (s) Immunologic History: Reports: None Oncologic (Cancer) History: Reports: None Dermatologic History: Reports: Decubitus Ulcer - Infectious Disease History Infectious Disease History: Reports: Chicken Pox - Past Surgical History Head Surgeries/Procedures: Reports: None HEENT Surgical History: Reports: Oral Surgery Cardiovascular Surgical History: Reports: None Respiratory Surgical History: Reports: Thoracentesis GI Surgical History: Reports: Colonoscopy Male Surgical History: Reports: None Endocrine Surgical History: Reports: None Neurological Surgical History: Reports: None Musculoskeletal Surgical History: Reports: None Oncologic Surgical History: Reports: None Social & Family History - Family History Family Medical History: Noncontributory - Tobacco Use Smoking Status *Q: Never Smoker - Caffeine Use Caffeine Use: Reports: Coffee, Tea - Recreational Drug Use Recreational Drug Use: No - Living Situation & Occupation Living situation: Reports: , with Family ED ROS GENERAL - Review of Systems Review Of Systems: Comprehensive ROS is negative, except as noted in HPI. ED EXAM, BEHAVIORAL HEALTH - Physical Exam Exam: See Below Exam Limited By: No Limitations General Appearance: Alert, WD/WN, Anxious Eye Exam: Bilateral Eye: EOMI, Normal Inspection Ears: Normal External Exam, Hearing Grossly Normal Nose: Normal Inspection, Normal Mucosa, No Blood Throat/Mouth: Normal Inspection, Normal Lips, Normal Teeth, Normal Gums, Normal Oropharynx, Normal Voice, No Airway Compromise Head: Atraumatic, Normocephalic Neck: Normal Inspection, Supple, Non-Tender, Full Range of Motion Respiratory/Chest: No Respiratory Distress, Lungs Clear, Normal Breath Sounds, No Accessory Muscle Use, Chest Non-Tender Cardiovascular: Normal Peripheral Pulses, Regular Rate, Rhythm, No Edema, No Gallop, No JVD, No Murmur, No Rub GI/Abdominal: Normal Bowel Sounds, Soft, Non-Tender (Male) Exam: Deferred Rectal (Males) Exam: Deferred Back Exam: Normal Inspection, Full Range of Motion, NT Extremities: Normal Range of Motion, Non-Tender, No Pedal Edema, Normal Capillary Refill, Other (Left upper arm dialysis fistula) Neurological: Alert, Normal Mood/Affect, CN II-XII Intact, Normal Cognition, Normal Gait, Normal Reflexes, No Motor/Sensory Deficits, Oriented x 3 Psychiatric: Alert, Normal Affect, Normal Cognition, Normal Mood, Oriented Skin Exam: Warm, Dry, Intact, Normal color, No rash COURSE, BEHAVIORAL HEALTH COMP - Course Vital Signs: Last Vital Signs Temp 98.4 F 10/23/19 21:33 Pulse 88 10/23/19 21:33 Resp 16 10/23/19 21:33 BP 160/77 H 10/23/19 21:33 Pulse Ox 100 10/23/19 21:33 Orders, Labs, Meds: Medications Discontinued Medications Generic Name Dose Route Start Last Admin Trade Name Marcos PRN Reason Stop Dose Admin Lorazepam 1 mg 10/23/19 21:56 10/23/19 22:00 Ativan PO 10/23/19 21:57 1 mg ONETIME ONE Administration Departure - Departure Time of Disposition: 22:18 Disposition: Home, Self-Care 01 Condition: Fair Clinical Impression: Anxiety, Panic attack - Discharge Information *PRESCRIPTION DRUG MONITORING PROGRAM REVIEWED*: No *COPY OF PRESCRIPTION DRUG MONITORING REPORT IN PATIENT YANETH: No Instructions: Panic Attack, [id number] Forms: ED Department Discharge Additional Instructions: Return to the ER with any further problems Follow up at [facility] tomorrow Rest Sepsis Event Note - Evaluation Sepsis Screening Result: No Definite Risk - Focused Exam Vital Signs: Vital Signs Temp Pulse Resp BP Pulse Ox 10/23/19 21:33 98.4 F 88 16 160/77 H 100 Date Exam was Performed: 10/24/19 Time Exam was Performed: 05:53
== END 2019-10-23 22:28 | disposition home or self-care (01) ==
LOC: DL.ED 21:29
DX: F41.0 Panic disorder [episodic paroxysmal anxiety] (principal); I10 Essential (primary) hypertension; E11.40 Type 2 diabetes mellitus with diabetic neuropathy, unspecified; I48.91 Unspecified atrial fibrillation; E78.00 Pure hypercholesterolemia, unspecified; M19.90 Unspecified osteoarthritis, unspecified site; E66.9 Obesity, unspecified; Z68.29 Body mass index [BMI] 29.0-29.9, adult; Z79.01 Long term (current) use of anticoagulants; Z79.4 Long term (current) use of insulin; Z79.899 Other long term (current) drug therapy; Z88.8 Allergy status to other drugs, medicaments and biological substances; Z79.82 Long term (current) use of aspirin
CPT/HCPCS: 99283; A9270

== ENCOUNTER 2019-11-02 03:38 | Emergency (ER) | payer MEDICARE, MEDICAID ==
[2019-11-02] MEDS ORDERED: LORazepam 1 MG Tab PO ONE (03:39)
[2019-11-02 03:48] VITALS: BP 126/85; PULSE 84
--- NOTE | 2019-11-02 04:20 | EDM.PDOCBH ---
ED HPI GENERAL MEDICAL PROBLEM - General Chief Complaint: Behavioral/Psych Stated Complaint: HIGH ANXIETY Time Seen by Provider: 11/02/19 03:55 Source of Information: Reports: Patient History Limitations: Reports: No Limitations - History of Present Illness INITIAL COMMENTS - FREE TEXT/NARRATIVE: c/o anxiety, has not slept for 4 days, feel tired but cant settle down to sleep. 1 cup caffeine in am, Non smoker non drinker, denies drug use, on dialysis last run on . Clinic appointment on Tuesday. Started on Trazodone last week not helping. No shortness of breath, no chest pain. . No fever chills, or cough. Back Pain Score (Numeric/FACES): 6 - Related Data Allergies Allergy/AdvReac Type Severity Reaction Status Date / Time metformin AdvReac Nausea and Verified 11/02/19 03:48 Vomiting Home Meds: Home Meds Insulin Aspart [NovoLOG] 10 units SQ TID PRN 05/23/16 [History] Docusate Sodium [Colace] 100 mg PO BID PRN 06/28/16 [History] Albuterol/Ipratropium [DuoNeb 3.0-0.5 MG/3 ML] 3 ml INH QID PRN 11/08/18 [ History] Calcium Acetate [PhosLo] 2,668 mg PO TID 11/08/18 [History] Calcium Carbonate/Vitamin D3 [Calcium 500 + Vit D Caplet] 1 tab PO DAILY [History] Cholecalciferol (Vitamin D3) [Vitamin D3] 2,000 units PO DAILY 11/08/18 [History ] Lisinopril 20 mg PO DAILY 11/08/18 [History] Loratadine 10 mg PO DAILY PRN 11/08/18 [History] Metoprolol Tartrate 50 mg PO BID 11/08/18 [History] Multivitamin [Multiple Vitamins] 1 tab PO DAILY 11/08/18 [History] Omeprazole 40 mg PO DAILY 11/08/18 [History] Sertraline HCl 125 mg PO DAILY 11/08/18 [History] atorvaSTATin Calcium [Atorvastatin Calcium] 10 mg PO BEDTIME 11/08/18 [History] rOPINIRole HCl [Requip] 0.25 mg PO BEDTIME PRN 11/08/18 [History] Acetaminophen/HYDROcodone [[place] 325-5 MG] 1 tab PO DAILY 03/14/19 [History] Aspirin [Ecotrin EC] 325 mg PO DAILY 03/14/19 [History] Apixaban [Eliquis] 5 mg PO DAILY 04/16/19 [History] Past Medical History HEENT History: Reports: Impaired Vision Other HEENT History: wears glasses Cardiovascular History: Reports: Afib, High Cholesterol, Hypertension Respiratory History: Reports: Bronchitis, Recurrent, Sleep Apnea Gastrointestinal History: Reports: Chronic Constipation Genitourinary History: Reports: Dialysis, Renal Disease Other Genitourinary History: hemodialysis shunt in left upper arm with palpable bruit Musculoskeletal History: Reports: Arthritis, Back Pain, Chronic, Fracture Neurological History: Reports: Neuropathy, Diabetic Psychiatric History: Reports: Anxiety Endocrine/Metabolic History: Reports: Diabetes, Type II, IDDM, Obesity/BMI 30+ Hematologic History: Reports: Anemia, Anticoagulation Therapy, Blood Transfusion (s) Immunologic History: Reports: None Oncologic (Cancer) History: Reports: None Dermatologic History: Reports: Decubitus Ulcer - Infectious Disease History Infectious Disease History: Reports: Chicken Pox - Past Surgical History Head Surgeries/Procedures: Reports: None HEENT Surgical History: Reports: Oral Surgery Cardiovascular Surgical History: Reports: None Respiratory Surgical History: Reports: Thoracentesis GI Surgical History: Reports: Colonoscopy Male Surgical History: Reports: None Endocrine Surgical History: Reports: None Neurological Surgical History: Reports: None Musculoskeletal Surgical History: Reports: None Oncologic Surgical History: Reports: None Social & Family History - Family History Family Medical History: Noncontributory - Tobacco Use Smoking Status *Q: Never Smoker Second Hand Smoke Exposure: No - Caffeine Use Caffeine Use: Reports: None - Recreational Drug Use Recreational Drug Use: No - Living Situation & Occupation Living situation: Reports: , with Family ED ROS GENERAL - Review of Systems Review Of Systems: Comprehensive ROS is negative, except as noted in HPI. ED EXAM, BEHAVIORAL HEALTH - Physical Exam Exam: See Below Exam Limited By: No Limitations General Appearance: Alert, Anxious (mild), Mild Distress Eye Exam: Bilateral Eye: EOMI Ears: Normal External Exam Nose: Normal Inspection Throat/Mouth: Normal Inspection Head: Atraumatic, Normocephalic Neck: Normal Inspection Respiratory/Chest: No Respiratory Distress, Lungs Clear Cardiovascular: No Edema, Irregularly Irregular Extremities: Normal Range of Motion, Other (dilaysis shunt left upper arm) Neurological: Alert, Normal Cognition, Oriented x 3 Psychiatric: Normal Cognition, Restless (mild). No: Suicidal Thoughts Skin Exam: Warm, Intact COURSE, BEHAVIORAL HEALTH COMP - Course Vital Signs: Last Vital Signs Temp 98.5 F 11/02/19 03:45 Pulse 84 11/02/19 03:45 Resp 18 11/02/19 03:45 BP 126/85 11/02/19 03:45 Pulse Ox 99 11/02/19 03:45 Departure - Departure Time of Disposition: 04:16 Disposition: Home, Self-Care 01 Condition: Good Clinical Impression: Anxiety, Dialysis patient Insomnia Qualifiers: Insomnia type: unspecified Qualified Code(s): G47.00 - Insomnia, unspecified - Discharge Information *PRESCRIPTION DRUG MONITORING PROGRAM REVIEWED*: No *COPY OF PRESCRIPTION DRUG MONITORING REPORT IN PATIENT YANETH: No Instructions: Insomnia, Living With Anxiety Forms: ED Department Discharge Additional Instructions: follow up mental health and primary care as scheduled ativan 1 mg one at bed tonight Sepsis Event Note (ED) - Evaluation Sepsis Screening Result: No Definite Risk - Focused Exam Vital Signs: Vital Signs Temp Pulse Resp BP Pulse Ox 11/02/19 03:45 98.5 F 84 18 126/85 99
[2019-11-02] MEDS ORDERED: LORazepam 1 MG Tab ONE (04:21)
== END 2019-11-02 04:25 | disposition home or self-care (01) ==
LOC: DL.ED 03:38
DX: F41.9 Anxiety disorder, unspecified (principal); G47.00 Insomnia, unspecified; Z99.2 Dependence on renal dialysis; I10 Essential (primary) hypertension; I48.91 Unspecified atrial fibrillation; E78.00 Pure hypercholesterolemia, unspecified; M19.90 Unspecified osteoarthritis, unspecified site; E11.40 Type 2 diabetes mellitus with diabetic neuropathy, unspecified; E66.9 Obesity, unspecified; Z68.29 Body mass index [BMI] 29.0-29.9, adult; Z79.01 Long term (current) use of anticoagulants; Z79.4 Long term (current) use of insulin; Z79.899 Other long term (current) drug therapy; Z88.8 Allergy status to other drugs, medicaments and biological substances; Z79.82 Long term (current) use of aspirin
CPT/HCPCS: 99283; A9270

== ENCOUNTER 2020-10-31 17:11 | Emergency (ER) | payer MEDICARE, MEDICAID ==
[2020-10-31] MEDS: Sodium Chloride 0.9% 10 ML Syringe FLUSH PRN ×2 (17:48→18:13)
[2020-10-31] MEDS ORDERED: Acetaminophen 325 MG Tab PO ONE (18:00)
[2020-10-31] MEDS ORDERED: Ondansetron 4 MG/2 ML SDV IV ONE (18:01)
[2020-10-31] MEDS ORDERED: HYDROmorphone 1 MG/ML Syringe IVPUSH ONE (18:05)
[2020-10-31 18:18] LABS: ANION GAP 17.7 mEq/L (7-13); CHLORIDE,CL 93 mmol/L (98-107); SODIUM,NA 131 mmol/L (136-145)
[2020-10-31] MEDS ORDERED: diphenhydrAMINE 50 MG/ML SDV IVPUSH ONE (18:40)
[2020-10-31 18:52] VITALS: BP 125/59; PULSE 93
--- NOTE | 2020-10-31 19:02 | EDM.PDOC ---
Scribed by Claire Hoskins 10/31/20 0445 for Steve Claros MD ED HPI GENERAL MEDICAL PROBLEM - General Chief Complaint: Lower Extremity Injury/Pain Stated Complaint: CHILLS, INFECTION BY GROIN AREA PER PT Time Seen by Provider: 10/31/20 17:25 Source of Information: Reports: Patient, Old Records, RN, RN Notes Reviewed History Limitations: Reports: No Limitations - History of Present Illness INITIAL COMMENTS - FREE TEXT/NARRATIVE: Patient presents to ED by POV with c/o onset of fever today with increasing redness and pain to the left lower leg. Pt has an external fixator on the left lower extremity which was place on August [address] [facility]. Today pt claims the home health nurse came and cleaned his leg, and told him that she was concerned that it was becoming infected. Pt developed a painful lump in the left groin today as well. He was not able to attend his regular dialysis today due to the fever. 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 Onset: Today, Gradual Duration: Constant, Getting Worse Location: Reports: Lower Extremity, Left Quality: Reports: Ache Severity: Severe Improves with: Reports: None Worsens with: Reports: Movement Associated Symptoms: Reports: No Other Symptoms Left Leg Pain Score (Numeric/FACES): 6 - Related Data Allergies Allergy/AdvReac Type Severity Reaction Status Date / Time metformin AdvReac Nausea and Verified 10/31/20 17:33 Vomiting Home Meds: Home Meds Insulin Aspart [NovoLOG] 10 units SQ TID PRN 05/23/16 [History] Docusate Sodium [Colace] 100 mg PO BID PRN 06/28/16 [History] Albuterol/Ipratropium [DuoNeb 3.0-0.5 MG/3 ML] 3 ml INH QID PRN 11/08/18 [History] Calcium Acetate [PhosLo] 2,668 mg PO TID 11/08/18 [History] Calcium Carbonate/Vitamin D3 [Calcium 500 + Vit D Caplet] 1 tab PO DAILY 11/08/18 [History] Cholecalciferol (Vitamin D3) [Vitamin D3] 2,000 units PO DAILY 11/08/18 [History] Lisinopril 20 mg PO DAILY 11/08/18 [History] Loratadine 10 mg PO DAILY PRN 11/08/18 [History] Metoprolol Tartrate 50 mg PO BID 11/08/18 [History] Multivitamin [Multiple Vitamins] 1 tab PO DAILY 11/08/18 [History] Omeprazole 40 mg PO DAILY 11/08/18 [History] Sertraline HCl 125 mg PO DAILY 11/08/18 [History] atorvaSTATin Calcium [Atorvastatin Calcium] 10 mg PO BEDTIME 11/08/18 [History] rOPINIRole HCl [Requip] 0.25 mg PO BEDTIME PRN 11/08/18 [History] Acetaminophen/HYDROcodone [[place] 325-5 MG] 1 tab PO DAILY 03/14/19 [History] Aspirin [Ecotrin EC] 325 mg PO DAILY 03/14/19 [History] Apixaban [Eliquis] 5 mg PO DAILY 04/16/19 [History] Past Medical History HEENT History: Reports: Impaired Vision Other HEENT History: wears glasses Cardiovascular History: Reports: Afib, High Cholesterol, Hypertension Respiratory History: Reports: Bronchitis, Recurrent, Sleep Apnea Gastrointestinal History: Reports: Chronic Constipation Genitourinary History: Reports: Chronic Renal Insuffiency, Dialysis, Renal Disease Other Genitourinary History: hemodialysis shunt in left upper arm with palpable bruit Musculoskeletal History: Reports: Arthritis, Back Pain, Chronic, Fracture Neurological History: Reports: Neuropathy, Diabetic Psychiatric History: Reports: Anxiety Endocrine/Metabolic History: Reports: Diabetes, Type II, IDDM, Obesity/BMI 30+ Hematologic History: Reports: Anemia, Anticoagulation Therapy, Blood Transfusion(s) Immunologic History: Reports: None Oncologic (Cancer) History: Reports: None Dermatologic History: Reports: Decubitus Ulcer - Infectious Disease History Infectious Disease History: Reports: Chicken Pox - Past Surgical History Head Surgeries/Procedures: Reports: None HEENT Surgical History: Reports: Oral Surgery Cardiovascular Surgical History: Reports: None Respiratory Surgical History: Reports: Thoracentesis GI Surgical History: Reports: Colonoscopy Male Surgical History: Reports: None Endocrine Surgical History: Reports: None Neurological Surgical History: Reports: None Musculoskeletal Surgical History: Reports: ORIF (left lower extremity fracture: 08/13/20) Oncologic Surgical History: Reports: None Social & Family History - Family History Family Medical History: No Pertinent Family History - Caffeine Use Caffeine Use: Reports: None - Living Situation & Occupation Living situation: Reports: , with Family Review of Systems - Review of Systems Review Of Systems: Comprehensive ROS is negative, except as noted in HPI. ED EXAM, GENERAL - Physical Exam Exam: See Below Exam Limited By: No Limitations General Appearance: Alert, WD/WN, No Apparent Distress Throat/Mouth: Normal Voice, No Airway Compromise Head: Atraumatic, Normocephalic Neck: Normal Inspection Respiratory/Chest: No Respiratory Distress, Lungs Clear, Normal Breath Sounds, No Accessory Muscle Use, Chest Non-Tender Cardiovascular: Regular Rate, Rhythm, Tachycardia GI/Abdominal: Normal Bowel Sounds, Soft, Non-Tender (Male) Exam: Inguinal Lymphadenopathy (Left) Back Exam: Normal Inspection Extremities: Increased Warmth, Redness, Other (Left lower extremity external fixator with crusting and drainage at the pins, increased warmth and erythema proximal to the top of the pins) Neurological: Alert, Oriented, No Motor/Sensory Deficits Psychiatric: Normal Mood Skin Exam: Warm, Dry Course - Vital Signs Last Recorded V/S: Last Vital Signs Temp 99.4 F 10/31/20 17:30 Pulse 102 H 10/31/20 17:30 Resp 20 10/31/20 17:30 BP 179/103 H 10/31/20 17:30 Pulse Ox 100 10/31/20 17:30 - Orders/Labs/Meds Orders: Active Orders 24 hr Category Date Time Status Peripheral IV Care [RC] . DIRECTED Care 10/31/20 17:30 Active B-TYPE NATRIURETIC PEPTIDE,BNP [CHEM] Stat Lab 10/31/20 17:45 Results C-REACTIVE PROTEIN [CHEM] Stat Lab 10/31/20 17:45 Results COMPREHENSIVE METABOLIC PN,CMP [CHEM] Stat Lab 10/31/20 17:45 Results CULTURE BLOOD [BC] Stat Lab 10/31/20 17:45 Received CULTURE BLOOD [BC] Stat Lab 10/31/20 17:53 Received MAGNESIUM [CHEM] Stat Lab 10/31/20 17:45 Results PHOSPHORUS [CHEM] Stat Lab 10/31/20 17:45 Results REFLEX LACTIC ACID YES OR NO [CHEM] Routine Lab 10/31/20 18:33 Received Sodium Chloride 0.9% [Saline Flush] Med 10/31/20 17:30 Active 10 ml FLUSH ASDIRECTED PRN Vancomycin 1,500 mg Med 10/31/20 18:39 Ordered Sodium Chloride 0.9% [Normal Saline] 500 ml IV ONETIME Blood Culture x2 Reflex Set [OM.PC] Stat Oth 10/31/20 17:29 Ordered Peripheral IV Insertion Adult [OM.PC] Stat Oth 10/31/20 17:29 Ordered Medication Orders Vancomycin HCl 1,500 mg/ (Sodium Chloride) 500 mls @ 333.333 mls/hr IV ONETIME ONE Stop: 10/31/20 20:08 Sodium Chloride (Sodium Chloride 0.9% 10 Ml Syringe) 10 ml FLUSH ASDIRECTED PRN PRN Reason: Keep Vein Open Last Admin: 10/31/20 18:13 Dose: 10 ml Documented by: Admin: 10/31/20 17:48 Dose: 10 ml Documented by: JESUS Labs: Laboratory Tests 10/31/20 10/31/20 10/31/20 Range/Units 17:45 17:45 17:45 WBC 13.9 H (5.0-10.0) 10^3/uL RBC 4.63 (4.6-6.2) 10^6/uL Hgb 14.1 D (14.0-18.0) g/dL Hct 43.2 (40.0-54.0) % MCV 93.3 D (80-100) fL MCH 30.5 (27.0-34.0) pg MCHC 32.6 L (33.0-35.0) g/dL Plt Count 152 (150-450) 10^3/uL Neut % (Auto) 83.2 H (42.2-75.2) % Lymph % (Auto) 6.6 L (20.5-50.1) % Baker % (Auto) 9.5 H (2-8) % Eos % (Auto) 0.6 L (1.0-3.0) % Baso % (Auto) 0.1 (0.0-1.0) % Sodium 131 L (136-145) mmol/L Potassium 4.7 (3.5-5.1) mmol/L Chloride 93 L (98-107) mmol/L Carbon Dioxide 25 (21-32) mmol/L Anion Gap 17.7 H (7-13) mEq/L BUN 53 H (7-18) mg/dL Creatinine 10.75 H* (0.70-1.30) mg/dL Est Cr Clr Drug Dosing TNP Estimated GFR (MDRD) 5 BUN/Creatinine Ratio 4.9 (No establ ref range) Glucose 144 H (70-99) mg/dL Lactic Acid 2.1 H* (0.4-2.0) mmol/L Calcium 9.4 (8.5-10.1) mg/dL Phosphorus 3.9 (2.6-4.7) mg/dL Magnesium 2.6 H (1.8-2.4) mg/dL Total Bilirubin 1.0 (0.2-1.0) mg/dL AST 10 L (15-37) U/L ALT 13 L (16-63) U/L Alkaline Phosphatase 121 H (46-116) U/L C-Reactive Protein 23.1 H (0.0-0.9) mg/dL Total Protein 7.5 (6.4-8.2) g/dL Albumin 3.1 L (3.4-5.0) g/dL Globulin 4.4 Albumin/Globulin Ratio 0.70 Meds: Medications Generic Name Dose Route Start Last Admin Trade Name Marcos PRN Reason Stop Dose Admin Vancomycin HCl 1,500 mg/ 500 mls @ 333.333 mls/hr 10/31/20 18:39 Sodium Chloride IV 10/31/20 20:08 ONETIME ONE Sodium Chloride 10 ml 10/31/20 17:30 10/31/20 18:13 Sodium Chloride 0.9% 10 Ml Syringe FLUSH 10 ml ASDIRECTED PRN Administration Keep Vein Open Discontinued Medications Generic Name Dose Route Start Last Admin Trade Name Marcos PRN Reason Stop Dose Admin Acetaminophen 650 mg 10/31/20 18:00 10/31/20 18:11 Acetaminophen 325 Mg Tab PO 10/31/20 18:01 650 mg NOW ONE Administration Diphenhydramine HCl 25 mg 10/31/20 18:40 Diphenhydramine 50 Mg/Ml Sdv IVPUSH 10/31/20 18:41 ONETIME ONE Hydromorphone HCl 1 mg 10/31/20 18:05 10/31/20 18:12 Hydromorphone 1 Mg/Ml Syringe IVPUSH 10/31/20 18:06 1 mg ONETIME ONE Administration Ondansetron HCl 4 mg 10/31/20 18:01 10/31/20 18:12 Ondansetron 4 Mg/2 Ml Sdv IV 10/31/20 18:02 4 mg ONETIME ONE Administration Departure - Departure Time of Disposition: 18:40 Disposition: DC/Tfer to Acute Hospital 02 Condition: Fair Clinical Impression: Cellulitis of left lower extremity, Inguinal lymphadenopathy, ESRD on hemodialysis Infection at site of external fixator pin Qualifiers: Encounter type: initial encounter Qualified Code(s): T84.7XXA - Infection and inflammatory reaction due to other internal orthopedic prosthetic devices, implants and grafts, initial encounter - Discharge Information Forms: ED Department Discharge, Interfacility Transfer [facility] Sepsis Event Note (ED) - Focused Exam Vital Signs: Vital Signs Temp Pulse Resp BP Pulse Ox 10/31/20 17:30 99.4 F 102 H 20 179/103 H 100 - My Orders Last 24 Hours: My Active Orders 10/31/20 17:29 Blood Culture x2 Reflex Set [OM.PC] Stat Peripheral IV Insertion Adult [OM.PC] Stat 10/31/20 17:30 Peripheral IV Care [RC] . DIRECTED Sodium Chloride 0.9% [Saline Flush] 10 ml FLUSH ASDIRECTED PRN 10/31/20 17:45 B-TYPE NATRIURETIC PEPTIDE,BNP [CHEM] Stat C-REACTIVE PROTEIN [CHEM] Stat COMPREHENSIVE METABOLIC PN,CMP [CHEM] Stat CULTURE BLOOD [BC] Stat MAGNESIUM [CHEM] Stat PHOSPHORUS [CHEM] Stat 10/31/20 17:53 CULTURE BLOOD [BC] Stat 10/31/20 18:33 REFLEX LACTIC ACID YES OR NO [CHEM] Routine 10/31/20 18:39 Vancomycin 1,500 mg Sodium Chloride 0.9% [Normal Saline] 500 ml IV ONETIME - Assessment/Plan Last 24 Hours: My Active Orders 10/31/20 17:29 Blood Culture x2 Reflex Set [OM.PC] Stat Peripheral IV Insertion Adult [OM.PC] Stat 10/31/20 17:30 Peripheral IV Care [RC] . DIRECTED Sodium Chloride 0.9% [Saline Flush] 10 ml FLUSH ASDIRECTED PRN 10/31/20 17:45 B-TYPE NATRIURETIC PEPTIDE,BNP [CHEM] Stat C-REACTIVE PROTEIN [CHEM] Stat COMPREHENSIVE METABOLIC PN,CMP [CHEM] Stat CULTURE BLOOD [BC] Stat MAGNESIUM [CHEM] Stat PHOSPHORUS [CHEM] Stat 10/31/20 17:53 CULTURE BLOOD [BC] Stat 10/31/20 18:33 REFLEX LACTIC ACID YES OR NO [CHEM] Routine 10/31/20 18:39 Vancomycin 1,500 mg Sodium Chloride 0.9% [Normal Saline] 500 ml IV ONETIME I have read and agree with the documentation that has been completed regarding this visit. By signing this record, I attest that the documentation was completed in my physical presence and is an accurate record of the encounter.
== END 2020-10-31 19:31 ==
LOC: DL.ED 17:11
DX: T84.7XXA Infection and inflammatory reaction due to other internal orthopedic prosthetic devices, implants and grafts, initial encounter (principal); L03.116 Cellulitis of left lower limb; R59.0 Localized enlarged lymph nodes; I12.0 Hypertensive chronic kidney disease with stage 5 chronic kidney disease or end stage renal disease; E11.22 Type 2 diabetes mellitus with diabetic chronic kidney disease; N18.6 End stage renal disease; I48.91 Unspecified atrial fibrillation; E78.00 Pure hypercholesterolemia, unspecified; E66.9 Obesity, unspecified; Z68.30 Body mass index [BMI] 30.0-30.9, adult; Z88.8 Allergy status to other drugs, medicaments and biological substances; Z79.4 Long term (current) use of insulin; Z79.899 Other long term (current) drug therapy; Z79.82 Long term (current) use of aspirin
CPT/HCPCS: 36415; 80053; 83605; 83735; 83880; 84100; 85025; 86140; 87040; 96365; 96375; 99284; 99284-25; A9270-GY; J1170; J1200; J2405; J3370; J7040

== ENCOUNTER 2020-12-25 18:31 | Emergency (ER) | payer MEDICARE, MEDICAID ==
[2020-12-25 19:13] VITALS: BP 150/86; PULSE 98
--- NOTE | 2020-12-25 20:20 | EDM.PDOC ---
ED HPI GENERAL MEDICAL PROBLEM - General Chief Complaint: ENT Problem Stated Complaint: CONGESTED. Time Seen by Provider: 12/25/20 19:15 Source of Information: Reports: Patient History Limitations: Reports: No Limitations - History of Present Illness INITIAL COMMENTS - FREE TEXT/NARRATIVE: ED with c/o cough congestion sore throat since Tuesday. has not been seen by PCP. Dialysis patient. Some chills tonight. Grand daughter seen for strep throat yesterday. . Has had COVID Vaccines. Reports compliance with mask when out of home. Cough productive at times clear whitish sputum. Tried nebulizer at home today, Unsure what solution type for neb was. Unsure is asthma or COPD hx. No change in appetite. Denies change in usual weight. Chest pa with deep breath and coughing Last dialysis yesterday - Related Data Allergies Allergy/AdvReac Type Severity Reaction Status Date / Time metformin AdvReac Nausea and Verified 10/31/20 17:33 Vomiting Home Meds: Home Meds Insulin Aspart [NovoLOG] 10 units SQ TID PRN 05/23/16 [History] Docusate Sodium [Colace] 100 mg PO BID PRN 06/28/16 [History] Albuterol/Ipratropium [DuoNeb 3.0-0.5 MG/3 ML] 3 ml INH QID PRN 11/08/18 [History] Calcium Acetate [PhosLo] 2,668 mg PO TID 11/08/18 [History] Calcium Carbonate/Vitamin D3 [Calcium 500 + Vit D Caplet] 1 tab PO DAILY 11/08/18 [History] Cholecalciferol (Vitamin D3) [Vitamin D3] 2,000 units PO DAILY 11/08/18 [History] Lisinopril 20 mg PO DAILY 11/08/18 [History] Loratadine 10 mg PO DAILY PRN 11/08/18 [History] Metoprolol Tartrate 50 mg PO BID 11/08/18 [History] Multivitamin [Multiple Vitamins] 1 tab PO DAILY 11/08/18 [History] Omeprazole 40 mg PO DAILY 11/08/18 [History] Sertraline HCl 125 mg PO DAILY 11/08/18 [History] atorvaSTATin Calcium [Atorvastatin Calcium] 10 mg PO BEDTIME 11/08/18 [History] rOPINIRole HCl [Requip] 0.25 mg PO BEDTIME PRN 11/08/18 [History] Acetaminophen/HYDROcodone [Thomson 325-5 MG] 1 tab PO DAILY 03/14/19 [History] Aspirin [Ecotrin EC] 325 mg PO DAILY 03/14/19 [History] Apixaban [Eliquis] 5 mg PO DAILY 04/16/19 [History] Past Medical History HEENT History: Reports: Impaired Vision Other HEENT History: wears glasses Cardiovascular History: Reports: Afib, High Cholesterol, Hypertension Respiratory History: Reports: Bronchitis, Recurrent, Sleep Apnea Gastrointestinal History: Reports: Chronic Constipation Genitourinary History: Reports: Chronic Renal Insuffiency, Dialysis, Renal Disease Other Genitourinary History: hemodialysis shunt in left upper arm with palpable bruit Musculoskeletal History: Reports: Arthritis, Back Pain, Chronic, Fracture Neurological History: Reports: Neuropathy, Diabetic Psychiatric History: Reports: Anxiety Endocrine/Metabolic History: Reports: Diabetes, Type II, IDDM, Obesity/BMI 30+ Hematologic History: Reports: Anemia, Anticoagulation Therapy, Blood Transfusion(s) Immunologic History: Reports: None Oncologic (Cancer) History: Reports: None Dermatologic History: Reports: Decubitus Ulcer - Infectious Disease History Infectious Disease History: Reports: Chicken Pox - Past Surgical History Head Surgeries/Procedures: Reports: None HEENT Surgical History: Reports: Oral Surgery Other HEENT Surgeries/Procedures: multiple teeth extracted Cardiovascular Surgical History: Reports: None Respiratory Surgical History: Reports: Thoracentesis GI Surgical History: Reports: Colonoscopy Male Surgical History: Reports: None Endocrine Surgical History: Reports: None Neurological Surgical History: Reports: None Musculoskeletal Surgical History: Reports: ORIF Oncologic Surgical History: Reports: None Social & Family History - Family History Family Medical History: No Pertinent Family History - Tobacco Use Tobacco Use Status *Q: Never Tobacco User Second Hand Smoke Exposure: No - Caffeine Use Caffeine Use: Reports: Coffee, Soda, Tea - Recreational Drug Use Recreational Drug Use: No - Living Situation & Occupation Living situation: Reports: , with Family ED ROS ENT - Review of Systems Review Of Systems: Comprehensive ROS is negative, except as noted in HPI. ED EXAM, ENT - Physical Exam Exam: See Below Exam Limited By: No Limitations General Appearance: Alert, Mild Distress Eye Exam: Bilateral Eye: EOMI, Normal Fundi Ears: Normal External Exam, Hearing Grossly Normal Nose: Normal Inspection Mouth/Throat: Normal Inspection Head: Atraumatic, Normocephalic Neck: Normal Inspection Respiratory/Chest: Decreased Breath Sounds (greater left base), Other (dry cough). No: Crackles, Rhonchi, Wheezing Cardiovascular: Normal Peripheral Pulses, Regular Rate, Rhythm GI/Abdominal: Normal Bowel Sounds, Soft Extremities: Normal Inspection, Normal Range of Motion Neurological: Alert, Oriented Psychiatric: Normal Affect, Normal Mood Skin: Warm, Dry, Intact, Erythema (left calf) #1 Interpretation EKG Date: 12/25/20 Time: 08:13 Rhythm: A-Fib Rate (Beats/Min): 98 P-Wave: Variable QRS: RBBB ST-T: Normal Comparison: No Change Course - Vital Signs Last Recorded V/S: Last Vital Signs Temp 97.7 F 12/25/20 19:08 Pulse 98 12/25/20 19:08 Resp 18 12/25/20 19:08 BP 150/86 H 12/25/20 19:08 Pulse Ox 100 12/25/20 19:08 - Orders/Labs/Meds Orders: Active Orders 24 hr Category Date Time Status CULTURE BLOOD [BC] Stat Lab 12/25/20 20:20 Results CULTURE STREP A CONFIRMATION [] Stat Lab 12/25/20 20:14 Results STREP SCRN A RAPID W CULT CONF [] Stat Lab 12/25/20 20:14 Results Labs: Laboratory Tests 12/25/20 12/25/20 12/25/20 Range/Units 20:14 20:20 20:20 WBC 7.4 (5.0-10.0) 10^3/uL RBC 4.76 (4.6-6.2) 10^6/uL Hgb 14.3 (14.0-18.0) g/dL Hct 45.6 (40.0-54.0) % MCV 95.8 (80-100) fL MCH 30.0 (27.0-34.0) pg MCHC 31.4 L (33.0-35.0) g/dL Plt Count 155 (150-450) 10^3/uL Neut % (Auto) 65.8 (42.2-75.2) % Lymph % (Auto) 13.6 L (20.5-50.1) % Elmore % (Auto) 8.8 H (2-8) % Eos % (Auto) 11.3 H (1.0-3.0) % Baso % (Auto) 0.5 (0.0-1.0) % PT (9.0-12.0) SEC INR (0.9-1.2) Sodium 136 (136-145) mmol/L Potassium 3.8 (3.5-5.1) mmol/L Chloride 96 L (98-107) mmol/L Carbon Dioxide 31 (21-32) mmol/L Anion Gap 12.8 (7-13) mEq/L BUN 30 H (7-18) mg/dL Creatinine 8.08 H* D (0.70-1.30) mg/dL Est Cr Clr Drug Dosing 12.29 mL/min Estimated GFR (MDRD) 7 BUN/Creatinine Ratio 3.7 (No establ ref range) Glucose 161 H (70-99) mg/dL Lactic Acid (0.4-2.0) mmol/L Calcium 9.7 (8.5-10.1) mg/dL Magnesium 2.7 H (1.8-2.4) mg/dL Total Bilirubin 0.6 (0.2-1.0) mg/dL AST 17 (15-37) U/L ALT 15 L (16-63) U/L Alkaline Phosphatase 176 H (46-116) U/L Troponin I High Sens (<=76) pg/mL B-Natriuretic Peptide 2220 H (0-100) pg/ml Total Protein 8.2 (6.4-8.2) g/dL Albumin 3.6 (3.4-5.0) g/dL Globulin 4.6 Albumin/Globulin Ratio 0.8 Influenza Type A RNA Negative (NEGATIVE) Influenza Type B RNA Negative (NEGATIVE) SARS-CoV-2 RNA (LINDA) Negative (NEGATIVE) 12/25/20 12/25/20 12/25/20 Range/Units 20:20 20:20 21:20 WBC (5.0-10.0) 10^3/uL RBC (4.6-6.2) 10^6/uL Hgb (14.0-18.0) g/dL Hct (40.0-54.0) % MCV (80-100) fL MCH (27.0-34.0) pg MCHC (33.0-35.0) g/dL Plt Count (150-450) 10^3/uL Neut % (Auto) (42.2-75.2) % Lymph % (Auto) (20.5-50.1) % Elmore % (Auto) (2-8) % Eos % (Auto) (1.0-3.0) % Baso % (Auto) (0.0-1.0) % PT 11.1 (9.0-12.0) SEC INR 1.1 (0.9-1.2) Sodium (136-145) mmol/L Potassium (3.5-5.1) mmol/L Chloride (98-107) mmol/L Carbon Dioxide (21-32) mmol/L Anion Gap (7-13) mEq/L BUN (7-18) mg/dL Creatinine (0.70-1.30) mg/dL Est Cr Clr Drug Dosing mL/min Estimated GFR (MDRD) BUN/Creatinine Ratio (No establ ref range) Glucose (70-99) mg/dL Lactic Acid 1.5 (0.4-2.0) mmol/L Calcium (8.5-10.1) mg/dL Magnesium (1.8-2.4) mg/dL Total Bilirubin (0.2-1.0) mg/dL AST (15-37) U/L ALT (16-63) U/L Alkaline Phosphatase (46-116) U/L Troponin I High Sens 98 H* (<=76) pg/mL B-Natriuretic Peptide (0-100) pg/ml Total Protein (6.4-8.2) g/dL Albumin (3.4-5.0) g/dL Globulin Albumin/Globulin Ratio Influenza Type A RNA (NEGATIVE) Influenza Type B RNA (NEGATIVE) SARS-CoV-2 RNA (LINDA) (NEGATIVE) Meds: Medications Discontinued Medications Generic Name Dose Route Start Last Admin Trade Name Freq PRN Reason Stop Dose Admin Albuterol/Ipratropium 3 ml 12/25/20 21:16 12/25/20 21:26 Albuterol/Ipratropium 3.0-0.5 Mg/3 Ml Neb Soln NEB 12/25/20 21:17 3 ml ONETIME ONE Administration Benzonatate 200 mg 12/25/20 21:44 12/25/20 21:59 Benzonatate 100 Mg Cap PO 12/25/20 21:45 200 mg ONETIME ONE Administration - Re-Assessments/Exams Free Text/Narrative Re-Assessment/Exam: 12/26/20 06:48 improved exchange, decreased cough following neb. Reports does have duo neb available but had forgot as not using on a regular basis. Departure - Departure Time of Disposition: 21:45 Disposition: Home, Self-Care 01 Condition: Fair Clinical Impression: Dialysis patient Asthma exacerbation Qualifiers: Asthma severity: mild Asthma persistence: intermittent Qualified Code(s): J45.21 - Mild intermittent asthma with (acute) exacerbation - Discharge Information *PRESCRIPTION DRUG MONITORING PROGRAM REVIEWED*: No *COPY OF PRESCRIPTION DRUG MONITORING REPORT IN PATIENT YANETH: No Instructions: Asthma, Adult, Dialysis Referrals: Arnoldo Sanders MD [Primary Care Provider] - Forms: ED Department Discharge Additional Instructions: duo neb nebulizer treatment 3 times daily as needed limit fluid intake dialysis in am as scheduled follow up if symptoms worsening home medications as per primary care mask when out side Sepsis Event Note (ED) - Evaluation Sepsis Screening Result: No Definite Risk - Focused Exam Vital Signs: Vital Signs Temp Pulse Resp BP Pulse Ox 12/25/20 19:08 97.7 F 98 18 150/86 H 100 - My Orders Last 24 Hours: My Active Orders 12/25/20 20:14 CULTURE STREP A CONFIRMATION [RM] Stat STREP SCRN A RAPID W CULT CONF [RM] Stat 12/25/20 20:20 CULTURE BLOOD [BC] Stat - Assessment/Plan Last 24 Hours: My Active Orders 12/25/20 20:14 CULTURE STREP A CONFIRMATION [RM] Stat STREP SCRN A RAPID W CULT CONF [RM] Stat 12/25/20 20:20 CULTURE BLOOD [BC] Stat
[2020-12-25 20:47] LABS: ANION GAP 12.8 mEq/L (7-13)
--- NOTE | 2020-12-25 20:53 | CR ---
PROCEDURE INFORMATION: Exam: XR Chest Exam date and time: 12/25/2020 8:07 PM Age: 55 years old Clinical indication: Cough and shortness of breath; Additional info: Cough congestion SOB since Tuesday TECHNIQUE: Imaging protocol: XR of the chest. Views: 2 views. COMPARISON: CR Chest 1V Frontal 12/15/2017 7:36 PM FINDINGS: Lungs: No acute consolidation. Pleural spaces: Loculated right pleural effusion. Heart/Mediastinum: Unremarkable. No cardiomegaly. Bones/joints: Unremarkable. IMPRESSION: Decreasing right pleural fluid volume. Otherwise unremarkable chest.
[2020-12-25 21:05] LABS: CORONAVIRUS COVID-19 NAA NEGATIVE (NEGATIVE)
[2020-12-25] MEDS ORDERED: Albuterol/Ipratropium 3.0-0.5 MG/3 ML Neb Soln NEB ONE (21:16)
[2020-12-25] MEDS ORDERED: Benzonatate 100 MG Cap PO ONE (21:44)
== END 2020-12-25 22:03 | disposition home or self-care (01) ==
LOC: DL.ED 18:31
DX: J45.21 Mild intermittent asthma with (acute) exacerbation (principal); I48.91 Unspecified atrial fibrillation; E78.00 Pure hypercholesterolemia, unspecified; I12.9 Hypertensive chronic kidney disease with stage 1 through stage 4 chronic kidney disease, or unspecified chronic kidney disease; E11.40 Type 2 diabetes mellitus with diabetic neuropathy, unspecified; E11.22 Type 2 diabetes mellitus with diabetic chronic kidney disease; N18.9 Chronic kidney disease, unspecified; E66.9 Obesity, unspecified; D63.1 Anemia in chronic kidney disease; Z79.4 Long term (current) use of insulin; Z68.29 Body mass index [BMI] 29.0-29.9, adult; Z88.8 Allergy status to other drugs, medicaments and biological substances; Z79.01 Long term (current) use of anticoagulants; Z79.899 Other long term (current) drug therapy; Z99.2 Dependence on renal dialysis; Z20.822 Contact with and (suspected) exposure to COVID-19
CPT/HCPCS: 0240U; 36415; 71046; 80053; 83605; 83735; 83880; 84484; 85025; 85610; 87040; 87081; 87430; 93005; 99284; A9270; J7620-GY

== ENCOUNTER 2021-12-27 18:28 | Emergency (ER) | payer MEDICARE, MEDICAID ==
[2021-12-27 20:15] VITALS: BP 134/79; PULSE 87
== END 2021-12-27 20:14 | disposition home or self-care (01) ==
LOC: DL.ED 18:28
DX: S89.91XA Unspecified injury of right lower leg, initial encounter (principal); I25.10 Atherosclerotic heart disease of native coronary artery without angina pectoris; I48.91 Unspecified atrial fibrillation; E78.00 Pure hypercholesterolemia, unspecified; I10 Essential (primary) hypertension; E11.9 Type 2 diabetes mellitus without complications; E66.9 Obesity, unspecified; Z68.28 Body mass index [BMI] 28.0-28.9, adult; Z95.1 Presence of aortocoronary bypass graft; Z86.16 Personal history of COVID-19; Z88.8 Allergy status to other drugs, medicaments and biological substances; Z79.82 Long term (current) use of aspirin; Z79.01 Long term (current) use of anticoagulants; Z79.4 Long term (current) use of insulin; W18.30XA Fall on same level, unspecified, initial encounter
CPT/HCPCS: 73562-RT; 99283

== ENCOUNTER 2022-02-28 10:10 | Emergency (ER) | payer MEDICARE, MEDICAID ==
[2022-02-28] MEDS ORDERED: Acetaminophen/HYDROcodone 325-10 MG Tab PO ONE ×2 (12:11)
[2022-02-28] MEDS ORDERED: Cyclobenzaprine 10 MG Tab PO ONE (12:19)
[2022-02-28] MEDS ORDERED: Orphenadrine 60 MG/2 ML Inj IM ONE (12:22)
[2022-03-26 11:18] LABS: CHLORIDE,CL 95 mmol/L (98-107); ESTIMATED GFR 6 mL/min (>=60); SODIUM,NA 135 mmol/L (136-145)
== END 2022-02-28 12:30 | disposition home or self-care (01) ==
LOC: DL.ED 10:10
DX: M62.830 Muscle spasm of back (principal); M25.852 Other specified joint disorders, left hip; I10 Essential (primary) hypertension; E11.9 Type 2 diabetes mellitus without complications; Z79.899 Other long term (current) drug therapy
CPT/HCPCS: 36415; 80048; 83735; 84100; 85025; 96372; 99283; A9270-GY; J2360

== ENCOUNTER 2022-05-02 14:14 | Emergency (ER) | payer MEDICARE, MEDICAID ==
[2022-05-02 17:24] LABS: CORONAVIRUS COVID-19 NAA NEGATIVE (NEGATIVE); RESPIRATORY SYNCYTIAL VIR NAA NEGATIVE (NEGATIVE)
[2022-05-02] MEDS ORDERED: Oseltamivir 30 MG Cap PO ONE (18:16)
[2022-05-02] MEDS ORDERED: Acetaminophen 500 MG Tab PO ONE (18:16)
[2022-05-02 18:39] VITALS: BP 136/86; PULSE 78
== END 2022-05-02 18:47 | disposition home or self-care (01) ==
LOC: DL.ED 14:14
DX: J10.1 Influenza due to other identified influenza virus with other respiratory manifestations (principal); M62.830 Muscle spasm of back; I48.91 Unspecified atrial fibrillation; E78.00 Pure hypercholesterolemia, unspecified; I12.9 Hypertensive chronic kidney disease with stage 1 through stage 4 chronic kidney disease, or unspecified chronic kidney disease; E11.22 Type 2 diabetes mellitus with diabetic chronic kidney disease; N18.9 Chronic kidney disease, unspecified; E66.9 Obesity, unspecified; Z68.28 Body mass index [BMI] 28.0-28.9, adult; Z95.1 Presence of aortocoronary bypass graft; Z88.8 Allergy status to other drugs, medicaments and biological substances; Z79.4 Long term (current) use of insulin; Z79.82 Long term (current) use of aspirin; Z79.01 Long term (current) use of anticoagulants; Z79.899 Other long term (current) drug therapy; Z86.16 Personal history of COVID-19; Z20.822 Contact with and (suspected) exposure to COVID-19
CPT/HCPCS: 0241U; 96374; 99283; A9270; J3360

== ENCOUNTER 2022-06-28 15:24 | Emergency (ER) | payer MEDICARE, MEDICAID ==
[2022-06-28] MEDS ORDERED: Acetaminophen/HYDROcodone 325-10 MG Tab PO ONE ×2 (15:25→18:03)
[2022-06-28] MEDS ORDERED: Cyclobenzaprine 10 MG Tab PO ONE ×2 (15:25→18:05)
[2022-06-28 17:21] VITALS: BP 135/92; PULSE 83
[2022-06-28 17:35] LABS: CORONAVIRUS COVID-19 NAA NEGATIVE (NEGATIVE); RESPIRATORY SYNCYTIAL VIR NAA NEGATIVE (NEGATIVE)
[2022-06-28 17:39] LABS: ANION GAP 10.7 mEq/L (7-13); CHLORIDE,CL 95 mmol/L (98-107); SODIUM,NA 138 mmol/L (136-145)
[2022-06-28 17:45] LABS: ESTIMATED GFR 10 mL/min (>=60)
[2022-06-28] MEDS ORDERED: Acetaminophen/HYDROcodone 325-10 MG Tab ONE (18:12)
[2022-06-28] MEDS ORDERED: Cyclobenzaprine 10 MG Tab ONE (18:12)
== END 2022-06-28 18:31 | disposition home or self-care (01) ==
LOC: DL.ED 15:24
DX: M62.830 Muscle spasm of back (principal); R51.9 Headache, unspecified; I13.11 Hypertensive heart and chronic kidney disease without heart failure, with stage 5 chronic kidney disease, or end stage renal disease; D63.1 Anemia in chronic kidney disease; N18.6 End stage renal disease; Z99.2 Dependence on renal dialysis; E11.22 Type 2 diabetes mellitus with diabetic chronic kidney disease; E11.40 Type 2 diabetes mellitus with diabetic neuropathy, unspecified; Z20.822 Contact with and (suspected) exposure to COVID-19; I48.91 Unspecified atrial fibrillation; E78.00 Pure hypercholesterolemia, unspecified; E66.9 Obesity, unspecified; Z88.8 Allergy status to other drugs, medicaments and biological substances; Z79.4 Long term (current) use of insulin
CPT/HCPCS: 0241U; 36415; 70450; 71046; 80053; 83605; 83735; 84100; 85025; 99284; A9270

== ENCOUNTER 2022-08-16 14:32 | Emergency (ER) | payer MEDICARE, MEDICAID ==
[2022-08-16 14:43] VITALS: BP 110/82; PULSE 101
[2022-08-16] MEDS ORDERED: Sodium Chloride 0.9% 10 ML Syringe FLUSH PRN (14:56)
[2022-08-16 16:03] LABS: ANION GAP 14.1 mEq/L (7-13)
[2022-08-16 16:10] LABS: CORONAVIRUS COVID-19 NAA NEGATIVE (NEGATIVE); RESPIRATORY SYNCYTIAL VIR NAA NEGATIVE (NEGATIVE)
[2022-08-16] MEDS ORDERED: Ondansetron 4 MG/2 ML SDV IVPUSH ONE (16:24)
[2022-08-16 16:25] LABS: PTT,PARTIAL THROMBOPLSTIN TIME 30.6 SEC (22.0-34.0)
== END 2022-08-16 17:33 ==
LOC: DL.ED 14:32
DX: J90 Pleural effusion, not elsewhere classified (principal); I21.4 Non-ST elevation (NSTEMI) myocardial infarction; I13.0 Hypertensive heart and chronic kidney disease with heart failure and stage 1 through stage 4 chronic kidney disease, or unspecified chronic kidney disease; E11.40 Type 2 diabetes mellitus with diabetic neuropathy, unspecified; E11.22 Type 2 diabetes mellitus with diabetic chronic kidney disease; N18.9 Chronic kidney disease, unspecified; I50.9 Heart failure, unspecified; I48.91 Unspecified atrial fibrillation; E66.9 Obesity, unspecified; Z99.2 Dependence on renal dialysis; Z86.16 Personal history of COVID-19; Z88.8 Allergy status to other drugs, medicaments and biological substances; Z79.4 Long term (current) use of insulin; Z79.899 Other long term (current) drug therapy; Z79.01 Long term (current) use of anticoagulants; Z79.82 Long term (current) use of aspirin; Z20.822 Contact with and (suspected) exposure to COVID-19; Z68.44 Body mass index [BMI] 60.0-69.9, adult
CPT/HCPCS: 0241U; 36415; 71045; 80053; 83605; 83880; 84145; 84484; 85025; 85610; 85730; 86140; 87040; 93005; 93010; 96374; 99285; J2405; J3490

== ENCOUNTER 2022-08-29 17:28 | Emergency (ER) | payer MEDICARE, MEDICAID ==
[2022-08-29] MEDS ORDERED: Sodium Chloride 0.9% 10 ML Syringe FLUSH PRN (17:53)
[2022-08-29 17:56] VITALS: BP 74/63; PULSE 97
[2022-08-29] MEDS ORDERED: Midodrine 2.5 MG Tab PO ONE ×2 (18:02→18:03)
[2022-08-29] MEDS ORDERED: Hydrocortisone Sodium Succinate 100 MG/2 ML SDV IVPUSH ONE (18:02)
[2022-08-29 18:31] LABS: PTT,PARTIAL THROMBOPLSTIN TIME 29.6 SEC (22.0-34.0)
[2022-08-29] MEDS ORDERED: Cefepime 1 GM Vial IVPUSH ONE (18:52)
[2022-08-29 18:58] LABS: ANION GAP 23.5 mEq/L (7-13); CHLORIDE,CL 95 mmol/L (98-107); SODIUM,NA 138 mmol/L (136-145)
[2022-08-29 19:21] LABS: ESTIMATED GFR 6 mL/min (>=60)
[2022-08-29] MEDS ORDERED: Aspirin 81 MG Tab.Chew PO ONE (20:25)
[2022-08-29] MEDS ORDERED: Heparin Sodium 5,000 Units/ML Vial IVPUSH ONE (20:26)
[2022-08-29] MEDS ORDERED: Heparin Sodium/0.45% NaCl 25,000 UNITS/500 ML BAG IV SCH (20:30)
[2022-08-29] MEDS ORDERED: Acetaminophen 500 MG Tab PO ONE (22:01)
== END 2022-08-29 22:28 ==
LOC: DL.ED 17:28
DX: I13.2 Hypertensive heart and chronic kidney disease with heart failure and with stage 5 chronic kidney disease, or end stage renal disease (principal); N18.6 End stage renal disease; I21.4 Non-ST elevation (NSTEMI) myocardial infarction; E87.5 Hyperkalemia; J90 Pleural effusion, not elsewhere classified; E80.7 Disorder of bilirubin metabolism, unspecified; E78.00 Pure hypercholesterolemia, unspecified; I10 Essential (primary) hypertension; E11.9 Type 2 diabetes mellitus without complications; Z79.899 Other long term (current) drug therapy; Z79.82 Long term (current) use of aspirin; Z86.16 Personal history of COVID-19; Z87.891 Personal history of nicotine dependence; Z88.8 Allergy status to other drugs, medicaments and biological substances
CPT/HCPCS: 36415; 71045; 80053; 83605; 83735; 83880; 84100; 84484; 85025; 85610; 85730; 93005; 93010; 96365; 96375; 99285; 99285-25; A9270-GY; J0692; J1644; J1720; J3490

== ENCOUNTER 2022-09-15 19:56 | Emergency (ER) | payer MEDICARE, MEDICAID ==
[2022-09-15] MEDS ORDERED: Aspirin 81 MG Tab.Chew PO ONE (20:19)
[2022-09-15] MEDS ORDERED: Sodium Chloride 0.9% 10 ML Syringe FLUSH PRN (20:19)
[2022-09-15] MEDS ORDERED: Sodium Chloride 0.9% 1,000 ML IV ONE (20:19)
[2022-09-15 20:45] LABS: ANION GAP 13.5 mEq/L (7-13); CHLORIDE,CL 97 mmol/L (98-107); SODIUM,NA 143 mmol/L (136-145)
[2022-09-15 20:48] LABS: ESTIMATED GFR 15 mL/min (>=60)
[2022-09-15] MEDS ORDERED: Clopidogrel 75 MG Tab PO ONE (21:12)
[2022-09-15] MEDS ORDERED: Enoxaparin 100 MG/1 ML Syringe SUBCUT ONE (21:14)
[2022-09-15] MEDS ORDERED: DOPamine/Dextrose 5%-Water 400 MG/250 ML BAG IV SCH (21:30)
[2022-09-15 23:01] VITALS: BP 93/61; PULSE 90
== END 2022-09-15 23:01 ==
LOC: DL.ED 19:56
DX: I21.4 Non-ST elevation (NSTEMI) myocardial infarction (principal); I95.9 Hypotension, unspecified; I48.91 Unspecified atrial fibrillation; E78.00 Pure hypercholesterolemia, unspecified; I12.9 Hypertensive chronic kidney disease with stage 1 through stage 4 chronic kidney disease, or unspecified chronic kidney disease; E11.22 Type 2 diabetes mellitus with diabetic chronic kidney disease; N18.9 Chronic kidney disease, unspecified; D63.1 Anemia in chronic kidney disease; Z99.2 Dependence on renal dialysis; Z88.8 Allergy status to other drugs, medicaments and biological substances; Z86.16 Personal history of COVID-19; Z79.899 Other long term (current) drug therapy
CPT/HCPCS: 36415; 71045; 80053; 83605; 84484; 85025; 85610; 85730; 87040; 93005; 96361; 96365; 96372; 99285; A9270; J1265; J1650; J7050; J3490

== ENCOUNTER 2022-11-08 15:59 | Emergency (ER) | payer MEDICARE, MEDICAID ==
[2022-11-08] MEDS ORDERED: Orphenadrine 60 MG/2 ML Inj IM ONE (17:04)
[2022-11-08] MEDS ORDERED: Ketorolac 30 MG/ML SDV IM ONE (17:04)
[2022-11-08 17:58] VITALS: BP 103/71; PULSE 84
== END 2022-11-08 17:46 | disposition home or self-care (01) ==
LOC: DL.ED 15:59
DX: M54.41 Lumbago with sciatica, right side (principal); I48.91 Unspecified atrial fibrillation; E78.00 Pure hypercholesterolemia, unspecified; I12.9 Hypertensive chronic kidney disease with stage 1 through stage 4 chronic kidney disease, or unspecified chronic kidney disease; E11.22 Type 2 diabetes mellitus with diabetic chronic kidney disease; N18.9 Chronic kidney disease, unspecified; D63.1 Anemia in chronic kidney disease; E05.90 Thyrotoxicosis, unspecified without thyrotoxic crisis or storm; Z99.2 Dependence on renal dialysis; Z88.8 Allergy status to other drugs, medicaments and biological substances; Z79.899 Other long term (current) drug therapy; Z79.82 Long term (current) use of aspirin
CPT/HCPCS: 96372; 99283; J1885; J2360

== ENCOUNTER 2023-01-09 19:54 | Emergency (ER) | payer MEDICARE, MEDICAID ==
[2023-01-09 20:09] VITALS: BP 90/65; PULSE 107
== END 2023-01-09 21:52 | disposition home or self-care (01) ==
LOC: DL.ED 19:54
DX: I95.1 Orthostatic hypotension (principal); R53.83 Other fatigue; E11.22 Type 2 diabetes mellitus with diabetic chronic kidney disease; N18.6 End stage renal disease; I48.91 Unspecified atrial fibrillation; I25.10 Atherosclerotic heart disease of native coronary artery without angina pectoris; I50.9 Heart failure, unspecified; E11.21 Type 2 diabetes mellitus with diabetic nephropathy; E11.40 Type 2 diabetes mellitus with diabetic neuropathy, unspecified; E66.9 Obesity, unspecified; Z68.27 Body mass index [BMI] 27.0-27.9, adult; Z99.2 Dependence on renal dialysis; Z79.899 Other long term (current) drug therapy; Z79.82 Long term (current) use of aspirin; Z88.8 Allergy status to other drugs, medicaments and biological substances
CPT/HCPCS: 93005; 93010; 99284; 99285

== ENCOUNTER 2023-02-11 21:35 | Emergency (ER) | payer MEDICARE, MEDICAID ==
[2023-02-11] MEDS ORDERED: Sodium Bicarbonate 8.4% 50 MEQ/50 ML Syringe IV ONE (21:36)
[2023-02-11] MEDS ORDERED: EPINEPHrine 1:10,000 1 MG/10 ML Syringe IV ONE (21:36)
[2023-02-11] MEDS ORDERED: 50% Dextrose in Water 50 ML Syringe IV ONE (21:36)
[2023-02-11] MEDS ORDERED: Sodium Bicarbonate 8.4% 50 MEQ/50 ML Syringe ONE (22:42)
[2023-02-11] MEDS ORDERED: 50% Dextrose in Water 50 ML Syringe ONE (22:42)
[2023-02-11] MEDS ORDERED: EPINEPHrine 1:10,000 1 MG/10 ML Syringe ONE (22:42)
== END 2023-02-11 22:44 | disposition expired ==
LOC: DL.ED 21:35
DX: I46.9 Cardiac arrest, cause unspecified (principal); I25.10 Atherosclerotic heart disease of native coronary artery without angina pectoris; I50.9 Heart failure, unspecified; E11.40 Type 2 diabetes mellitus with diabetic neuropathy, unspecified; E66.9 Obesity, unspecified; Z86.16 Personal history of COVID-19; Z95.5 Presence of coronary angioplasty implant and graft; Z79.82 Long term (current) use of aspirin; Z79.899 Other long term (current) drug therapy; Z88.8 Allergy status to other drugs, medicaments and biological substances
CPT/HCPCS: 31500; 92950; 99285; 99285-25